=== PATIENT | female | born 1975 | race Caucasian/White ===

== ENCOUNTER → 2017-12-20 08:00 | Outpatient (CLI) | payer OTHER, SELFPAY ==
[2017-12-20 10:39] LABS: Anion Gap 8 (5-15); BUN 16 mg/dL (7-18); BUN/Creat Ratio 16.3 RATIO (10-20); Calcium,Total 8.7 mg/dL (8.5-10.1); Chloride 105 mmol/L (98-107); Cholesterol 184 mg/dL (200); Creatinine, Serum 0.98 mg/dL (0.55-1.02); EST Glomerular Filtration Rate 66 mL/min (>60); Est Glom Filt Rate - Afr Amer 80 mL/min (>60); Glucose 83 mg/dL (74-106); High Density Lipoprotein 46 mg/dL; Potassium 3.8 mmol/L (3.5-5.1); Sodium Level 140 mmol/L (136-145); Triglycerides 86 mg/dL; Very Low Density Lipoprotein 17 mg/dL (5-40)
[2017-12-20 12:13] LABS: Absolute Lymphocyte Count 1.52 X10^3/ul (0.83-4.51); Absolute Neutrophil Count 2.5 X10^3/uL (2.0-7.7); Basophil# 0.02 X10^3/uL; Basophil% 0.4 % (0-1); Eosinophil# 0.31 X10^3/uL; Eosinophils% 6.5 % (0-5); Hematocrit 39.7 % (37-47); Hemoglobin 13.6 g/dl (12.0-15.0); Lymphocyte # 1.52 X10^3/ul (4.0); Mean Corp Hgb Conc 34.3 g/gl (32-36); Mean Corpuscular Hgb 31.1 pg (27.0-32.0); Mean Corpuscular Volume 90.6 fL (81-99); Mean Platelet Vol. 11.1 fl (6.2-12.0); Monocyte# 0.41 X10^3/uL; Monocyte% 8.6 % (0-10); Neutrophil # 2.49 X10^3/uL (2.7-7.7); Neutrophil % 52.5 % (47-70); Platelet Count 282 K/mm3 (150-450); RBC Distribution Width SD 42.7 fl (35.1-43.9); Red Blood Count 4.38 M/mm3 (4.2-5.4); White Blood Count 4.8 K/mm3 (4.4-11.0)
[2017-12-20 12:19] LABS: POSITIVE COUNT NO; POSITIVE DIFFERENTIAL NO; POSITIVE MORPHOLOGY NO
[2017-12-21 08:21] LABS: Vitamin D,25 Hydroxy 28.4 ng/mL (29.95-100.01)
== END ==
PROVIDERS: Family Provider Internal Medicine; PCP Internal Medicine; Visit Provider Internal Medicine
DX: Z00.00 Encounter for general adult medical examination without abnormal findings (principal)
CPT/HCPCS: 36415; 80048; 80061; 82306; 85025

== ENCOUNTER → 2018-04-09 08:25 | Outpatient (CLI) | payer OTHER, SELFPAY ==
--- NOTE | 2018-04-09 08:27 | BI_ITS ---
MAMMOGRAPHY - BILATERAL SCREENING REASON FOR EXAM: Female, 43 years old. Routine annual screening examination. PERTINENT HISTORY: Non-contributory. TECHNIQUE: Digital bilateral breast amaury (3D mammographic acquisition) in the CC and MLO projections. 2-D mediolateral oblique (MLO) and craniocaudad (CC) views of both breasts were obtained. CAD: Full Field Digital Mammography with Computer Added Detection was performed. COMPARISON: Comparison is made with prior examination of April 03, 2017. FINDINGS: Breast Composition: The breasts are heterogeneously dense, which may obscure small masses. There are no dominant masses or suspicious calcifications. Once again, there is stable asymmetry of breast tissue where more breast tissue is seen in the upper outer quadrant of the right breast as compared to the left side. This is unchanged. Ultrasound correlation is recommended. No other significant abnormalities are identified. BI/SCREENING MAMM (CAD), BILAT IMPRESSION: Stable bilateral screening mammogram. Ultrasound correlation of the right breast is recommended for further assessment due to the breast asymmetry. ASSESSMENT CATEGORY: BIRADS Category 0: Incomplete. Need additional imaging evaluation. A letter regarding these results will be sent to the patient by the facility within 30 days. Approximately 10% of breast cancers are not detected by mammography. A normal mammogram should not delay biopsy of a clinically suspicious abnormality. [id number] Electronically Signed: Bora Tejeda MD at 11:03 EDT Tel [phone], Service support ,
== END ==
PROVIDERS: Family Provider Internal Medicine; PCP Internal Medicine; Referring Provider Obstetrics & Gynecology; Visit Provider Obstetrics & Gynecology
DX: Z12.31 Encounter for screening mammogram for malignant neoplasm of breast (principal)
CPT/HCPCS: 77063; 77067

== ENCOUNTER → 2018-04-17 08:00 | Outpatient (CLI) | payer OTHER, SELFPAY ==
--- NOTE | 2018-04-17 08:02 | US_ITS ---
STUDY: ULTRASOUND BREAST - RIGHT REASON FOR EXAM: Female, 43 years old. Left breast asymmetry, ultrasound recommended. TECHNIQUE: Axial and longitudinal images of the RIGHT breast were performed with a high resolution ultrasound transducer. COMPARISON: No prior right breast ultrasound imaging available. Correlation mammograms 04/09/2018 and 04/03/2017. FINDINGS: RIGHT Breast: There is a lesion in the upper Outer quadrant. The lesion measures 0.8 x 0.9 x 0.4 cm. And appears slightly lobulated plus shows no internal color Doppler signal. Clock notation: 11 o'clock position. Distance from nipple: 2 cm. Posterior Enhancement: Mild Posterior Shadowing: None Margins: Smooth and sharply demarcated. Echogenicity: Anechoic Compression effect on Shape: No change US/Breast Limited Unilateral IMPRESSION: Simple cyst right breast 11:00 position 2 cm from the nipple. Probably benign right mammographic and ultrasound findings. ASSESSMENT CATEGORY: BIRADS Category 3: Probably Benign - Short-Interval Follow-up Suggested. A letter regarding these results will be sent to the patient by the facility within 30 days. Recommendation: Right mammogram and possible right breast targeted ultrasound imaging in 6 months for short-term interval follow-up of probably benign findings. Electronically Signed: Trae Madrigal, at 16:54 EDT Tel , Service support ,
== END ==
PROVIDERS: Family Provider Internal Medicine; PCP Internal Medicine; Visit Provider Obstetrics & Gynecology
DX: R92.8 Other abnormal and inconclusive findings on diagnostic imaging of breast (principal)
CPT/HCPCS: 76642

== ENCOUNTER → 2018-04-30 08:17 | Outpatient (CLI) | payer OTHER, SELFPAY ==
--- NOTE | 2018-04-30 08:19 | US_ITS ---
STUDY: THYROID ULTRASOUND REASON FOR EXAM: Female, 43 years old. Thyromegaly felt by doctor TECHNIQUE: Ultrasound evaluation of the thyroid was performed with real-time and static miramontes-scale imaging. COMPARISON: None. FINDINGS: RIGHT LOBE: The right lobe of the thyroid gland measures 4.5x1.9x1.3 cm. There is a homogeneous echotexture. Single superior nodule visualized measuring 5 x 4 x 3 mm. The lesion is solid with regular margins and demetria nodular doppler flow. LEFT LOBE: The left lobe of the thyroid gland measures 4.4 x 1.7 x 1 cm. There is a homogeneous echotexture. There are no demonstrated solid, cystic or complex lesions. ISTHMUS: The isthmus measures 2 mm . The regional lymph nodes are normal. US/Thyroid IMPRESSION: Single 5 mm avascular nodule in the right thyroid lobe. The [place] [employer] (AACE) in collaboration with the [employer] (SARAH) and the Thyroid Association (ETA) published guidelines for the diagnosis and management of thyroid nodules. Biopsy of any solid and hypoechoic nodule larger than 1 cm in diameter. Thyroid nodules of any size undergo biopsy if the patient has been exposed to irradiation, has a family history of medullary carcinoma or multiple endocrine neoplasia, or has previously undergone partial thyroidectomy for thyroid cancer or if an elevated calcitonin level is present. The AACE/SARAH/ETA guidelines recommend biopsy of nodules of any size with marked hypoechogenicity, irregular or microlobulated margins, a taller than wide configuration (anteroposterior dimension greater than transverse dimension), microcalcifications, or chaotic arrangement of intranodular vascular images or chaotic intranodular vascular spots. These guidelines recommend biopsy independent of size if ultrasonography suggests the presence of metastatic lymph nodes or if extracapsular growth is noted in the nodule. They recommend biopsy of the solid component of all complex cystic nodules because of the risk of cystic papillary carcinoma. They further suggest that nodules that are hot on scintigraphy do not require biopsy. -Current Guidelines for the Management of Thyroid Nodules. Trae Prescott MD, NOLVIA, N. Endocr Pract. 2012; 18(4): 596-599. Electronically Signed: Anant Talbert MD at 17:02 EDT , Service support ,
[2018-04-30 10:30] LABS: T4 Free Direct 0.85 ng/dL (0.76-1.46)
== END ==
PROVIDERS: Family Provider Internal Medicine; PCP Internal Medicine; Referring Provider Obstetrics & Gynecology; Visit Provider Obstetrics & Gynecology
DX: E01.0 Iodine-deficiency related diffuse (endemic) goiter (principal)
CPT/HCPCS: 36415; 76536; 84439; 84443

== ENCOUNTER → 2018-09-16 08:54 | Outpatient (CLI) | payer OTHER, SELFPAY ==
[2018-05-20 08:39] VITALS: BMI 29.9
--- NOTE | 2018-09-16 08:55 | US_ITS ---
STUDY: ULTRASOUND BREAST - RIGHT REASON FOR EXAM: Female, 43 years old. Abnormal screening mammogram. TECHNIQUE: Axial and longitudinal images of the RIGHT breast were performed with a high resolution ultrasound transducer. COMPARISON: Comparison is made with prior mammogram done earlier today. Comparison is also made with prior ultrasound of the breast dated April 17, 2018. FINDINGS: RIGHT Breast: There is an 8 mm x 9 mm x 5 mm cyst at the 11:00 position of the breast sinus and nipple. US/Breast Limited Unilateral IMPRESSION: Stable examination. ASSESSMENT CATEGORY: BIRADS Category 2: Benign. A letter regarding these results will be sent to the patient by the facility within 30 days. Electronically Signed: Bora Tejeda, at 10:53 EDT , Service support ,
--- NOTE | 2018-09-16 09:01 | BI_ITS ---
MAMMOGRAPHY - UNILATERAL DIAGNOSTIC: RIGHT BREAST REASON FOR EXAM: Female, 43 years old. Six-month follow-up for a right breast cyst. PERTINENT HISTORY: Non-contributory. TECHNIQUE: Digital unilateral breast amaury (3D mammographic acquisition) in the CC and MLO projections. 2-D mediolateral oblique (MLO) and craniocaudad (CC) views of both breasts were obtained. CAD: Full Field Digital Mammography with Computer Added Detection was performed. COMPARISON: Comparison is made with prior study dated April 09, 2018. FINDINGS: Breast Composition: The breasts are heterogeneously dense, which may obscure small masses. There are no dominant masses or suspicious calcifications. No other significant abnormalities are identified. There has been no significant change since the prior study. BI/DIAG MAMM W/CAD, UNILAT IMPRESSION: Stable unilateral diagnostic mammogram. One year follow-up mammogram recommended. (A) ASSESSMENT CATEGORY: BIRADS Category 1: Negative. A letter regarding these results will be sent to the patient by the facility within 30 days. Approximately 10% of breast cancers are not detected by mammography. A normal mammogram should not delay biopsy of a clinically suspicious abnormality. Electronically Signed: Bora Tejeda, at 12:18 EDT , Service support ,
== END ==
PROVIDERS: Family Provider Internal Medicine; PCP Internal Medicine; Referring Provider Obstetrics & Gynecology; Visit Provider Obstetrics & Gynecology
DX: R92.8 Other abnormal and inconclusive findings on diagnostic imaging of breast (principal); Z87.898 Personal history of other specified conditions
CPT/HCPCS: 76642; 77061; 77065; G0279

== ENCOUNTER → 2018-10-08 08:09 | Outpatient (CLI) | payer OTHER, SELFPAY ==
[2018-09-17 14:58] VITALS: BMI 30.3
[2018-10-08 11:05] LABS: Anion Gap 6 (5-15); BUN 20 mg/dL (7-18); BUN/Creat Ratio 20.1 RATIO (10-20); Calcium,Total 8.9 mg/dL (8.5-10.1); Chloride 103 mmol/L (98-107); EST Glomerular Filtration Rate 65 mL/min (>60); Est Glom Filt Rate - Afr Amer 78 mL/min (>60); Glucose 124 mg/dL (74-106); Potassium 3.4 mmol/L (3.5-5.1); Sodium Level 135 mmol/L (136-145)
== END ==
PROVIDERS: Family Provider Internal Medicine; PCP Internal Medicine; Visit Provider Internal Medicine
DX: I10 Essential (primary) hypertension (principal)
CPT/HCPCS: 36415; 80048

== ENCOUNTER → 2018-11-07 08:08 | Outpatient (CLI) | payer OTHER, SELFPAY ==
[2018-10-15 10:18] VITALS: BMI 30.3
[2018-11-07 13:17] LABS: Anion Gap 8 (5-15); BUN 21 mg/dL (7-18); BUN/Creat Ratio 23.1 RATIO (10-20); Calcium,Total 9.1 mg/dL (8.5-10.1); Chloride 102 mmol/L (98-107); Creatinine, Serum 0.91 mg/dL (0.55-1.02); EST Glomerular Filtration Rate 72 mL/min (>60); Est Glom Filt Rate - Afr Amer 87 mL/min (>60); Glucose 78 mg/dL (74-106); Potassium 3.8 mmol/L (3.5-5.1); Sodium Level 138 mmol/L (136-145)
== END ==
PROVIDERS: Family Provider Internal Medicine; PCP Internal Medicine; Visit Provider Internal Medicine
DX: I10 Essential (primary) hypertension (principal)
CPT/HCPCS: 36415; 80048

== ENCOUNTER → 2019-02-04 08:10 | Outpatient (CLI) | payer OTHER, SELFPAY ==
[2018-11-13 14:12] VITALS: BMI 30.3
[2019-02-04 12:57] LABS: Anion Gap 8 (5-15); BUN 24 mg/dL (7-18); BUN/Creat Ratio 26.5 RATIO (10-20); Calcium,Total 9.4 mg/dL (8.5-10.1); Chloride 104 mmol/L (98-107); Creatinine, Serum 0.91 mg/dL (0.55-1.02); EST Glomerular Filtration Rate 72 mL/min (>60); Est Glom Filt Rate - Afr Amer 87 mL/min (>60); Glucose 88 mg/dL (74-106); Potassium 4.1 mmol/L (3.5-5.1); Sodium Level 139 mmol/L (136-145)
== END ==
PROVIDERS: Family Provider Internal Medicine; PCP Internal Medicine; Visit Provider Internal Medicine
DX: I10 Essential (primary) hypertension (principal)
CPT/HCPCS: 36415; 80048

== ENCOUNTER → 2019-04-29 07:55 | Outpatient (CLI) | payer OTHER, SELFPAY ==
[2018-11-13 14:12] VITALS: BMI 30.3
[2019-02-14 09:03] VITALS: BMI 30.3
--- NOTE | 2019-04-29 07:57 | BI_ITS ---
MAMMOGRAPHY - BILATERAL SCREENING REASON FOR EXAM: Female, 44 years old. Routine annual screening examination. PERTINENT HISTORY: Non-contributory. TECHNIQUE: Digital bilateral breast ajit (3D mammographic acquisition) in the CC and MLO projections. 2-D mediolateral oblique (MLO) and craniocaudad (CC) views of both breasts were obtained. CAD: Full Field Digital Mammography with Computer Added Detection was performed. COMPARISON: Comparison is made with prior examination April 09, 2018 and April 03, 2017. FINDINGS: Breast Composition: The breasts are heterogeneously dense, which may obscure small masses. There are no dominant masses or suspicious calcifications. Stable asymmetry of breast tissue within the breast tissue is seen in the upper-outer quadrant of the right breast as compared to the left side. No other significant abnormalities are identified. There has been no significant change since the prior study. BI/SCREEN MAMM (CAD) W/AJIT BILAT IMPRESSION: Stable bilateral screening mammogram. Yearly follow-up mammogram recommended. (A) ASSESSMENT CATEGORY: BIRADS Category 2: Benign. A letter regarding these results will be sent to the patient by the facility within 30 days. Approximately 10% of breast cancers are not detected by mammography. A normal mammogram should not delay biopsy of a clinically suspicious abnormality. [id number] Electronically Signed: Bora Tejeda, at 11:00 EDT , Service support ,
== END ==
PROVIDERS: Family Provider Internal Medicine; PCP Internal Medicine; Referring Provider Obstetrics & Gynecology; Visit Provider Obstetrics & Gynecology
DX: Z12.31 Encounter for screening mammogram for malignant neoplasm of breast (principal)
CPT/HCPCS: 77063; 77067

== ENCOUNTER → 2019-05-08 14:52 | Outpatient (CLI) | payer OTHER, SELFPAY ==
[2019-05-08 08:09] VITALS: BMI 30.3
[2019-05-13 15:11] LABS: HPV APTIMA, High Risk Negative (Negative)
== END ==
PROVIDERS: Family Provider Internal Medicine; PCP Internal Medicine; Visit Provider Obstetrics & Gynecology
DX: Z12.4 Encounter for screening for malignant neoplasm of cervix (principal)
CPT/HCPCS: 87624; 88175; G0145

== ENCOUNTER → 2019-05-27 08:31 | Outpatient (CLI) | payer OTHER, SELFPAY ==
[2019-05-08 08:09] VITALS: BMI 30.3
--- NOTE | 2019-05-27 08:39 | US_ITS ---
STUDY: THYROID ULTRASOUND REASON FOR EXAM: Female, 44 years old. Nodule TECHNIQUE: Ultrasound evaluation of the thyroid was performed with real-time and static miramontes-scale imaging. COMPARISON: 04/30/2018. FINDINGS: Right Lobe: 4.3 x 1.5 x 2.1 cm. Heterogeneous. Normal Doppler flow. Isthmus: 4 mm. Left lobe: 4.1 x 1.3 x 1.4 cm. Heterogeneous. Normal Doppler flow. Nodules: No thyroid nodule measuring greater than 5 mm is identified. There is a small 4 mm right mid pole hypoechoic nodule unchanged from prior. US/Thyroid IMPRESSION: Stable appearing hypoechoic 4 mm nodule which does not meet the criteria for tissue sampling of this time. Mildly heterogeneous gland parenchyma bilaterally is nonspecific. Electronically Signed: Mahesh Lira, at 17:08 EST Tel , Service support ,
== END ==
PROVIDERS: Family Provider Internal Medicine; PCP Internal Medicine; Referring Provider Internal Medicine; Visit Provider Internal Medicine
DX: E04.1 Nontoxic single thyroid nodule (principal)
CPT/HCPCS: 76536

== ENCOUNTER → 2019-08-05 08:06 | Outpatient (CLI) | payer OTHER, SELFPAY ==
[2019-06-25 13:36] VITALS: BMI 30.2
[2019-08-05 12:10] LABS: Absolute Lymphocyte Count 1.74 X10^3/uL (0.83-4.51); Absolute Neutrophil Count 4.7 X10^3/uL (2.0-7.7); Basophil# 0.03 X10^3/uL; Basophil% 0.4 % (0-1); Eosinophil# 0.29 X10^3/uL; Hematocrit 40.4 % (37-47); Hemoglobin 13.4 g/dL (12.0-15.0); Lymphocyte # 1.74 X10^3/ul (4.0); Lymphocyte % 23.7 % (19-41); Mean Corp Hgb Conc 33.2 g/dL (32-36); Mean Corpuscular Hgb 30.4 pg (27.0-32.0); Mean Corpuscular Volume 91.6 fL (81-99); Mean Platelet Vol. 11.1 fl (6.2-12.0); Monocyte# 0.55 X10^3/uL; Monocyte% 7.5 % (0-10); NRBC Flagged by Analyzer 0 % (0-5); Neutrophil # 4.71 X10^3/uL (2.7-7.7); Neutrophil % 64.1 % (47-70); Platelet Count 302 K/mm3 (150-450); RBC Distribution Width CV 12.7 % (11.6-14.6); RBC Distribution Width SD 42.1 fl (35.1-43.9); Red Blood Count 4.41 M/mm3 (4.2-5.4); White Blood Count 7.3 K/mm3 (4.4-11.0)
[2019-08-05 12:25] LABS: AST(SGOT) 9 U/L (15-37); Alanine Aminotransfer ALT/SGPT 27 U/L (13-56); Albumin, Serum 3.9 g/dL (3.2-5.0); Alkaline Phosphatase 52 U/L (45-117); Anion Gap 7 (5-15); BUN 24 mg/dL (7-18); BUN/Creat Ratio 26.5 RATIO (10-20); Calcium,Total 9.6 mg/dL (8.5-10.1); Chloride 104 mmol/L (98-107); Cholesterol 191 mg/dL (200); Creatinine, Serum 0.91 mg/dL (0.55-1.02); EST Glomerular Filtration Rate 72 mL/min (>60); Est Glom Filt Rate - Afr Amer 87 mL/min (>60); Globulin 4.1 g/dL (2.2-4.2); Glucose 91 mg/dL (74-106); High Density Lipoprotein 46 mg/dL; Potassium 3.8 mmol/L (3.5-5.1); Sodium Level 137 mmol/L (136-145); Triglycerides 81 mg/dL; Very Low Density Lipoprotein 16 mg/dL (5-40)
== END ==
LOC: BIMLAB 08:06
PROVIDERS: PCP Internal Medicine; Referring Provider Internal Medicine; Visit Provider Internal Medicine
DX: I10 Essential (primary) hypertension (principal)
CPT/HCPCS: 36415; 80053; 80061; 85025

== ENCOUNTER → 2020-02-13 08:22 | Outpatient (CLI) | payer OTHER, SELFPAY ==
[2020-02-13 08:05] VITALS: BMI 30.2
[2020-02-13 12:45] LABS: Anion Gap 7 (5-15); BUN 16 mg/dL (7-18); Calcium,Total 9.6 mg/dL (8.5-10.1); Chloride 101 mmol/L (98-107); EST Glomerular Filtration Rate 64 mL/min (>60); Est Glom Filt Rate - Afr Amer 78 mL/min (>60); Glucose 98 mg/dL (74-106); Potassium 3.7 mmol/L (3.5-5.1); Sodium Level 138 mmol/L (136-145)
== END ==
PROVIDERS: PCP Internal Medicine; Referring Provider Internal Medicine; Visit Provider Internal Medicine
DX: I10 Essential (primary) hypertension (principal)
CPT/HCPCS: 36415; 80048

== ENCOUNTER → 2020-04-30 07:35 | Outpatient (CLI) | payer OTHER, SELFPAY ==
[2020-02-13 08:05] VITALS: BMI 30.2
--- NOTE | 2020-04-30 07:35 | BI_ITS ---
MAMMOGRAPHY - BILATERAL SCREENING REASON FOR EXAM: Female, 45 years old. Routine annual screening examination. PERTINENT HISTORY: Non-contributory. TECHNIQUE: Digital bilateral breast ajit (3D mammographic acquisition) in the CC and MLO projections. 2-D mediolateral oblique (MLO) and craniocaudad (CC) views of both breasts were obtained. CAD: Full Field Digital Mammography with Computer Added Detection was performed. COMPARISON: Comparison is made with prior study dated 04/29/2019 and 04/09/2018. FINDINGS: Breast Composition: The breasts are heterogeneously dense, which may obscure small masses. There are no dominant masses or suspicious calcifications. Stable asymmetry of breast tissue were more breast tissue is seen in the upper-outer quadrant of the right breast as compared to the left side. No other significant abnormalities are identified. There has been no significant change since the prior study. BI/SCREEN MAMM (CAD) W/AJIT BILAT IMPRESSION: Stable bilateral screening mammogram. Yearly follow-up mammogram recommended. (A) ASSESSMENT CATEGORY: BIRADS Category 2: Benign. A letter regarding these results will be sent to the patient by the facility within 30 days. Approximately 10% of breast cancers are not detected by mammography. A normal mammogram should not delay biopsy of a clinically suspicious abnormality. [id number] Electronically Signed: Bora Tejeda, at 9:23 EDT , Service support ,
== END ==
PROVIDERS: PCP Internal Medicine; Referring Provider Obstetrics & Gynecology; Visit Provider Obstetrics & Gynecology
DX: Z12.31 Encounter for screening mammogram for malignant neoplasm of breast (principal)
CPT/HCPCS: 77063; 77067

== ENCOUNTER → 2020-08-16 08:22 | Outpatient (CLI) | payer OTHER, SELFPAY ==
[2020-08-16 08:07] VITALS: BMI 31.9
[2020-08-16 12:26] LABS: Absolute Lymphocyte Count 1.64 X10^3/uL (0.83-4.51); Absolute Neutrophil Count 4.1 X10^3/uL (2.0-7.7); Basophil# 0.05 X10^3/uL; Basophil% 0.7 % (0-1); Eosinophil# 0.46 X10^3/uL; Eosinophils% 6.8 % (0-5); Hematocrit 38.8 % (37-47); Hemoglobin 12.8 g/dL (12.0-15.0); Lymphocyte # 1.64 X10^3/ul (4.0); Lymphocyte % 24.3 % (19-41); Mean Corpuscular Hgb 30.4 pg (27.0-32.0); Mean Corpuscular Volume 92.2 fL (81-99); Mean Platelet Vol. 10.8 fl (6.2-12.0); Monocyte# 0.48 X10^3/uL; Monocyte% 7.1 % (0-10); NRBC Flagged by Analyzer 0 % (0-5); Neutrophil % 60.8 % (47-70); Platelet Count 373 K/mm3 (150-450); RBC Distribution Width SD 43.8 fl (35.1-43.9); Red Blood Count 4.21 M/mm3 (4.2-5.4); White Blood Count 6.8 K/mm3 (4.4-11.0)
[2020-08-16 13:28] LABS: ALB/GLOB Ratio 0.9 RATIO (0.9-2.4); AST(SGOT) 21 U/L (15-37); Alanine Aminotransfer ALT/SGPT 30 U/L (13-56); Albumin, Serum 3.7 g/dL (3.2-5.0); Alkaline Phosphatase 57 U/L (45-117); Anion Gap 8 (5-15); BUN 20 mg/dL (7-18); BUN/Creat Ratio 20.4 RATIO (10-20); Calcium,Total 9.4 mg/dL (8.5-10.1); Chloride 103 mmol/L (98-107); Cholesterol 208 mg/dL (200); Creatinine, Serum 0.98 mg/dL (0.55-1.02); EST Glomerular Filtration Rate 65 mL/min (>60); Est Glom Filt Rate - Afr Amer 79 mL/min (>60); Glucose 85 mg/dL (74-106); High Density Lipoprotein 48 mg/dL; Potassium 3.8 mmol/L (3.5-5.1); Protein, Total 7.7 g/dL (6.4-8.2); Sodium Level 137 mmol/L (136-145); Triglycerides 109 mg/dL; Very Low Density Lipoprotein 22 mg/dL (5-40)
== END ==
PROVIDERS: PCP Internal Medicine; Visit Provider Internal Medicine
DX: I10 Essential (primary) hypertension (principal)
CPT/HCPCS: 36415; 80053; 80061; 85025

== ENCOUNTER → 2020-11-29 08:36 | Outpatient (CLI) | payer OTHER, SELFPAY ==
[2020-11-29 08:22] VITALS: BMI 31.9
[2020-11-29 13:05] LABS: Anion Gap 5 (5-15); BUN 20 mg/dL (7-18); BUN/Creat Ratio 23.8 RATIO (10-20); Calcium,Total 9.4 mg/dL (8.5-10.1); Chloride 103 mmol/L (98-107); Creatinine, Serum 0.84 mg/dL (0.55-1.02); EST Glomerular Filtration Rate 78 mL/min (>60); Est Glom Filt Rate - Afr Amer 94 mL/min (>60); Glucose 93 mg/dL (74-106); Potassium 3.9 mmol/L (3.5-5.1); Sodium Level 135 mmol/L (136-145)
== END ==
PROVIDERS: PCP Internal Medicine; Referring Provider Internal Medicine; Visit Provider Internal Medicine
DX: I10 Essential (primary) hypertension (principal)
CPT/HCPCS: 36415; 80048

== ENCOUNTER → 2021-05-30 07:42 | Outpatient (CLI) | payer OTHER, SELFPAY ==
--- NOTE | 2021-05-30 07:43 | BI_ITS ---
MAMMOGRAPHY - BILATERAL SCREENING 3-D TOMOSYNTHESIS REASON FOR EXAM: Female, 46 years old. Routine screening PERTINENT HISTORY: No significant family history. TECHNIQUE: 2-D mammograms and 3-D Tomosynthesis of the breast (s) were performed. CAD was performed. COMPARISON: None. FINDINGS: The breast composition is heterogeneously dense that can obscure small breast masses. Scattered benign calcifications are seen. No dense spiculated masses or suspicious microcalcifications are identified. No architectural distortion is identified. There is no skin thickening or retraction. There has been no significant change since the prior study. BI/SCRN MAMM (CAD)W/AJIT BILAT IMPRESSION: No mammographic signs of malignancy. Routine yearly mammograms recommended. ASSESSMENT CATEGORY: BIRADS Category 2: Benign. A letter regarding these results will be sent to the patient by the facility within 30 days. FOLLOW UP RECOMMENDATION: Yearly follow up mammogram recommended. (A) Approximately 10% of breast cancers are not detected by mammography. A normal mammogram should not delay biopsy of a clinically suspicious abnormality. Electronically Signed: Tyson Bullock MD at 12:29 EST , Service support ,
== END ==
PROVIDERS: PCP Internal Medicine; Referring Provider Obstetrics & Gynecology; Visit Provider Obstetrics & Gynecology
DX: Z12.31 Encounter for screening mammogram for malignant neoplasm of breast (principal)
CPT/HCPCS: 77063; 77067

== ENCOUNTER 2021-07-05 09:46 | Day surgery (SDC) | payer OTHER, SELFPAY ==
[2021-07-05 10:07] VITALS: BP 122/78; PULSE 84; RESP 16; TEMP 36.4; O2SAT 100; BMI 30.7
[2021-07-05 10:10] LABS: Internal QC Validated? YES +Cl - CLEAR BKGD; Pregnancy, Urine Negative Negative
[2021-07-05] MEDS: Lactated Ringers 1,000 ML 15 ML IV (10:14)
--- NOTE | 2021-07-05 10:35 | H&P.OPEN ---
HPI - General HPI Narrative YOLY BELL, is a 46 F who presents for screening for colon cancer. Patient never had a previous colonoscopy. Patient denies any family history of colon cancer?However her parents do not get colonoscopies. Patient denies any chronic abdominal pain/nausea/vomiting/reflux. Patient has bowel movements daily denies any blood PFSH Medical History (Updated 07/04/21 @ 12:[address] Ynse Murry MD) Asthma BP (high blood pressure) Colon cancer screening Hypertension Non-smoker Right hip pain Seasonal allergies Thyroid nodule Umbilical hernia Home Medications albuterol sulfate 90 mcg/actuation aerosol inhaler 2 puff INHALATION Q6H PRN 01/11/18 [History Last Taken Unknown] allergy injections IM 01/11/18 [History Last Taken Unknown] levonorgestrel 20 mcg/24 hours (7 yrs) 52 mg intrauterine device 1 insert INTRAUTERINE ONCE 01/11/18 [History Last Taken Unknown] multivitamin 1 cap PO QAM 01/11/18 [History Last Taken Unknown] cholecalciferol (vitamin D3) 50 mcg (2,000 unit) capsule 2,000 unit PO DAILY 05/09/18 [History Last Taken Unknown] ascorbate calcium (vitamin C) 500 mg tablet 500 mg PO BID 05/20/18 [History Last Taken Unknown] fluticasone propionate 50 mcg/actuation nasal spray,suspension 2 spray INTRANASAL DAILY PRN #9.9 ml 01/31/21 [Rx Last Taken Unknown] hydrochlorothiazide 25 mg tablet 25 mg PO DAILY #90 tab 01/31/21 [Rx Last Taken Unknown] lisinopril 10 mg tablet 10 mg PO DAILY #90 tab 05/06/21 [Rx Last Taken 07/05/21] Allergy/AdvReac Type Severity Reaction Status Date / Time No Known Allergies Allergy Verified 07/05/21 10:05 Family History Father Asthma Hyperlipemia Mother Hypertension Grandfather Myocardial infarction, Onset Age: 55 Son Asthma Surgical History H/O dilation and curettage (~2010) Social History adopted: No household members: family housing: house number of children: 2 current occupational status: employed current occupation: [employer] right now pets and animals: No history of recent travel: No Smoking Status: Never smoker second hand exposure: No alcohol intake: current alcohol intake frequency: a few times a week details: social substance use type: does not use caffeine: Yes what type of physical activity do you participate in: none and walking seatbelt use: always do you feel safe at home: Yes additional social history: - Satya Past Medical/Surgical History Planned Operation Planned Operative Procedure/s: COLONOSCOPY Previous Hospitalizations/Surgeries HX Hospitalizations: No Any Problems With Anesthesia: No You/Your Family Experience Fever (Hyperthermia) With Anes: No Cholinesterase deficiency: No Cardiovascular Hx of Irregular Heartbeat and/or Afib: No Hx Heart Attack: No Hx Congestive Heart Failure: No Hx Hypertension: No Hx Internal Defibrillator: No Hx Pacemaker: No Respiratory Hx Chronic Obstructive Pulmonary Disease (COPD): No Hx Asthma: No Hx Emphysema: No Hx Sleep Apnea: No Hx Respiratory Tract Infection/Cold (presently): No Do You Snore Loudly (louder than talking or can be heard): No Do You Often Feel Tired/ Fatigued/ Sleepy Dring Daytime?: No Has Anyone Observed You Stop Breathing During Sleep?: No Result (for STOP score): Negative Smoking Status: Never smoker Gastrointestinal Hx Gastroesophageal Reflux: No Hx Ulcer: No Neurological Hx Seizures: No Hx Multiple Sclerosis: No Hx Parkinson's Disease: No Hx Head/Neck Injury: No Hx Headaches: No Hx Back Injury/Pain: No Does patient have nerve stimulator: No Reproduction : No Psycho/Social Hx Anxiety: No Hx Depression: No Miscellaneous Recent Exposure to Contagious Disease: No Allergies No Known Allergies Allergy (Verified 07/05/21 10:05) Discharge Is Pt Admitted From a Custodial, or a Prison: No After D/C, Where Do you Plan to Go: Return Home Vital Signs Vital Signs Vital Signs: 07/05/21 10:07 Temperature 97.6 F L Temperature Source Temporal Pulse Rate 84 Respiratory Rate 16 Respiratory Pattern Normal Blood Pressure 122/78 H Blood Pressure Mean 92 Blood Pressure Source Monitor Blood Pressure Position Sitting Blood Pressure Location Left Arm Pulse Ox 100 Oxygen Delivery Method Room Air Weight Weight: 190 lb 11.198 oz Body Mass Index (BMI) 30.7 Physical Exam Const alert, oriented x3 and no apparent distress HEENT normocephalic and head/scalp atraumatic Resp normal respiratory effort Cardio regular rate GI soft to palpation and non-tender; Negative for non-distended Palpation: Negative for guarding Extremity no clubbing, cyanosis or edema Neuro CN's II-XII intact bilaterally Psych mental status grossly normal Assessment & Plan Assessment/Plan (1) Colon cancer screening: Procedure Criteria Type of Procedure Procedure Type: Elective Elective Risks - COVID COVID Risk Discussion: The surgeon/proceduralist and patient have discussed in detail the risk of exposure to and/or potential harm posed by the COVID-19 virus with having a surgery/procedure at this time versus the risk of delaying the surgery/procedure. It is not possible to know either the risk of delaying the surgery or procedure or chance of getting an infection with perfect accuracy, but a joint decision was made between the patient and the surgeon/proceduralist to proceed at this time with the scheduled surgery/procedure as indicated on the consent form. Surgery Risks - Colonoscopy Risks Include but are not Limited To: Risks include but are not limited to: Bleeding, perforation requiring further surgery, inability to complete colonoscopy requiring barium enema.
--- NOTE | 2021-07-05 11:00 | COLBX_PTH ---
PATIENT: YOLY BELL LOC: [facility] U#:[id number] AGE/SX: 46/F ROOM: RE07/05/[address]: Dr. Genoveva Cadena MD : 1975 BED: DIS: 07/05/2021 SPEC #: [id number] RECD: 07/05/21 15:03 STATUS: YANELIS JAIRO #: [id number] REENA: 07/05/21 11:[address]: Genoveva Cadena DEPT: SURGICAL PATHOLOGY RECD BY: Beatriz Leyva ENTERED: 07/06/21 12:14 SP TYPE: COLON BX OT DR: Dr. Ynes Murry MD Tissues: Rectum, NOS Procedures: Surgery Specimen Level IV HEADER OPERATION: Colonoscopy ? open access (MAC) PRE-OP DIAGNOSIS: Colon cancer screening TISSUE SUBMITTED: Rectal biopsy MICROSCOPIC DIAGNOSIS Rectal biopsy: Focal acute colitis. Negative for malignancy. See comment. JJ:femi 07/07/2021 COMMENT Focal cryptitis and crypt abscesses are noted. Correlation with clinical, endoscopic findings and appropriate follow up are necessary. MICROSCOPIC DESCRIPTION Slides are reviewed. GROSS DESCRIPTION Received in fixative is one container labeled with the patient's name and designated rectal biopsy. The specimen consists of multiple irregular fragments of light haines soft tissue that in aggregate measure 0.5 x 0.5 x 0.1 cm. The specimen is totally submitted in one cassette. / SJ:femi 07/06/21 TC:2 CPT: 75824
[2021-07-05 11:20] VITALS: BP 110/65; BP 122/78; PULSE 77; RESP 16; TEMP 36.3; O2SAT 97
--- NOTE | 2021-07-05 11:24 | OP.CCLET_ITS ---
07/05/2021 Ynes Murry MD [address] [place] [address] [place] [address] Re : Colonoscopy procedure for Rupal Armijo Dear Dr. Murry This procedure was performed on Monday, July 05, 2021. My impressions and recommendations are as follows: Impressions : - Hemorrhoids found on perianal exam. - Non-bleeding internal hemorrhoids. - White lesions of the mucosa in the rectum. Biopsied. - The examination was otherwise normal. Recommendations : - Discharge patient to home. - Resume previous diet. - Continue present medications. - Await pathology results. - Repeat colonoscopy in 5-10 years for surveillance based on pathology results. My findings are described in the full procedure note, which is enclosed. If I can be of further assistance, please feel free to contact me at Doctor phone number(s): , Work: . Sincerely, MD Genoveva Wise MD 07/05/2021 11:23:46 AM This report has been signed electronically.
--- NOTE | 2021-07-05 11:24 | OP.COLON_ITS ---
Patient Name: Rupal Armijo Procedure Date: 07/05/2021 10:43 AM Date of : 1975 Age: 46 Procedure: Colonoscopy Indications: Screening for colorectal malignant neoplasm Providers: Genoveva Cadena MD Medicines: Monitored Anesthesia Care Patient Profile: This is a 46 year old female. Last Colonoscopy: none. The patient's first colonoscopy is today. Complications: No immediate complications. Procedure: Pre-Anesthesia Assessment: - Prior to the procedure, a History and Physical was performed, and patient medications and allergies were reviewed. The patient's tolerance of previous anesthesia was also reviewed. The risks and benefits of the procedure and the sedation options and risks were discussed with the patient. All questions were answered, and informed consent was obtained. Prior Anticoagulants: The patient has taken no previous anticoagulant or antiplatelet agents. ASA Grade Assessment: Per anesthesia. After reviewing the risks and benefits, the patient was deemed in satisfactory condition to undergo the procedure. After I obtained informed consent, the scope was passed under direct vision. Throughout the procedure, the patient's blood pressure, pulse, and oxygen saturations were monitored continuously. The colonoscope was introduced through the anus and advanced to the cecum, identified by appendiceal orifice and ileocecal valve. The colonoscopy was performed without difficulty. The patient tolerated the procedure well. The quality of the bowel preparation was good. Scope In: 10:53:21 AM Scope Withdrawal Time 0 hours 11 minutes 47 seconds Scope Out: 11:14:02 AM Total Procedure Duration Time 0 hours 20 minutes 41 seconds Findings: Hemorrhoids were found on perianal exam. Non-bleeding internal hemorrhoids were found. The hemorrhoids were Grade I (internal hemorrhoids that do not prolapse). An area of mildly white lesions of the mucosa was found in the rectum. Biopsies were taken with a cold forceps for histology. The exam was otherwise without abnormality. Impression: - Hemorrhoids found on perianal exam. - Non-bleeding internal hemorrhoids. - White lesions of the mucosa in the rectum. Biopsied. - The examination was otherwise normal. Recommendation: - Discharge patient to home. - Resume previous diet. - Continue present medications. - Await pathology results. - Repeat colonoscopy in 5-10 years for surveillance based on pathology results. Procedure Code(s): --- Professional --- 18608, PT, Colonoscopy, flexible; with biopsy, single or multiple Diagnosis Code(s): --- Professional --- Z12.11, Encounter for screening for malignant neoplasm of colon K64.0, First degree hemorrhoids CPT copyright 2017 [employer]. All rights reserved. The codes documented in this report are preliminary and upon leather skinner review may be revised to meet current compliance requirements. MD Genoveva Wise MD 07/05/2021 11:23:46 AM This report has been signed electronically. Number of Addenda: 0 Note Initiated On: 07/05/2021 10:43 AM
[2021-07-05 11:25] VITALS: BP 104/61; BP 122/78; PULSE 69; RESP 16; O2SAT 97
[2021-07-05 11:30] VITALS: BP 103/63; BP 122/78; PULSE 61; RESP 16; O2SAT 98
[2021-07-05 11:35] VITALS: BP 111/66; BP 122/78; PULSE 64; RESP 16; TEMP 36.7; O2SAT 100
[2021-07-05 11:55] VITALS: BP 122/78
== END 2021-07-05 12:13 ==
LOC: EN 09:49 → AC 09:50
PROVIDERS: Anesthesiology; PCP Internal Medicine; Referring Provider Internal Medicine; Visit Provider Surgery
PROC: 0DJD8ZZ Inspection of Lower Intestinal Tract, Via Natural or Artificial Opening Endoscopic (ICD-10-PCS; CPT 45378; principal; 2021-07-05 10:55)
DX: Z12.11 Encounter for screening for malignant neoplasm of colon (principal); K52.9 Noninfective gastroenteritis and colitis, unspecified; K64.0 First degree hemorrhoids; J45.909 Unspecified asthma, uncomplicated; I10 Essential (primary) hypertension; Z79.3 Long term (current) use of hormonal contraceptives; Z79.899 Other long term (current) drug therapy
CPT/HCPCS: 45380; 81025; 88305; J7120; J2405

== ENCOUNTER → 2021-07-06 14:47 | Outpatient (CLI) | payer OTHER, SELFPAY ==
--- NOTE | 2021-07-06 14:49 | RAD_ITS ---
STUDY: X-RAY - PELVIS AND RIGHT HIP REASON FOR EXAM: Female, 46 years old. no injury, right hip pain x 6-8 weeks Right Hip Pain TECHNIQUE: XR Hip Unilateral with Pelvis when performed; 2-3 Views COMPARISON: None. FINDINGS: There is a non-specific bowel gas pattern. Normal visualized soft tissue structures. An intrauterine device is identified in the pelvis and this is likely within the uterus. Normal bilateral iliac wings, sacroiliac joints and visualized sacrum. Normal bilateral superior and inferior pubic rami. Normal pubic symphysis. Normal bilateral ischial tuberosities. Normal visualized femoral head. Normal acetabulum. Normal hip joint. RAD/HIP, UNI W/ Pelvis 2-3 Views IMPRESSION: Normal x-ray examination of the pelvis and hip. Electronically Signed: Anant Talbert MD at 15:53 EST , Service support ,
== END ==
PROVIDERS: PCP Internal Medicine; Referring Provider Internal Medicine; Visit Provider Internal Medicine
DX: M25.551 Pain in right hip (principal)
CPT/HCPCS: 73502

== ENCOUNTER 2021-09-26 08:11 | Outpatient (CLI) | payer BC, SELFPAY ==
[2021-09-26 12:09] LABS: Absolute Lymphocyte Count 1.88 X10^3/uL (0.83-4.51); Absolute Neutrophil Count 4.5 X10^3/uL (2.0-7.7); Basophil# 0.04 X10^3/uL; Basophil% 0.5 % (0-1); Eosinophil# 0.34 X10^3/uL; Eosinophils% 4.6 % (0-5); Hematocrit 37.9 % (37-47); Hemoglobin 12.4 g/dL (12.0-15.0); Lymphocyte # 1.88 X10^3/ul (0.83-4.51); Lymphocyte % 25.6 % (19-41); Mean Corp Hgb Conc 32.7 g/dL (32-36); Mean Corpuscular Hgb 28.6 pg (27.0-32.0); Mean Corpuscular Volume 87.3 fL (81-99); Mean Platelet Vol. 10.8 fl (6.2-12.0); Monocyte# 0.54 X10^3/uL; Monocyte% 7.4 % (0-10); NRBC Flagged by Analyzer 0 % (0-5); Neutrophil # 4.51 X10^3/uL (2.7-7.7); Neutrophil % 61.5 % (47-70); Platelet Count 387 K/mm3 (150-450); RBC Distribution Width CV 14.6 % (11.6-14.6); RBC Distribution Width SD 46.9 fl (35.1-43.9); Red Blood Count 4.34 M/mm3 (4.2-5.4); White Blood Count 7.3 K/mm3 (4.4-11.0)
[2021-09-26 12:17] LABS: ALB/GLOB Ratio 0.8 RATIO (0.9-2.4); AST(SGOT) 13 U/L (15-37); Alanine Aminotransfer ALT/SGPT 23 U/L (13-56); Albumin, Serum 3.4 g/dL (3.2-5.0); Alkaline Phosphatase 79 U/L (45-117); Anion Gap 3 (5-15); BUN 20 mg/dL (7-18); BUN/Creat Ratio 20.6 RATIO (10-20); Calcium,Total 9.4 mg/dL (8.5-10.1); Chloride 103 mmol/L (98-107); Cholesterol 218 mg/dL (200); Creatinine, Serum 0.97 mg/dL (0.55-1.02); EST Glomerular Filtration Rate 66 mL/min (>60); Est Glom Filt Rate - Afr Amer 79 mL/min (>60); Globulin 4.3 g/dL (2.2-4.2); Glucose 93 mg/dL (74-106); High Density Lipoprotein 46 mg/dL; Potassium 3.6 mmol/L (3.5-5.1); Protein, Total 7.7 g/dL (6.4-8.2); Sodium Level 136 mmol/L (136-145); Triglycerides 134 mg/dL; Very Low Density Lipoprotein 27 mg/dL (5-40)
== END 2021-09-26 23:59 | disposition home or self-care (01) ==
LOC: BIMLAB 08:13
PROVIDERS: PCP Internal Medicine; Referring Provider Internal Medicine; Visit Provider Internal Medicine
DX: I10 Essential (primary) hypertension (principal)
CPT/HCPCS: 36415; 80053; 80061; 85025

== ENCOUNTER → 2022-04-06 | Outpatient (CLI) | payer BC, SELFPAY ==
[2022-04-06 10:40] LABS: Anion Gap 7 (5-15); BUN 26 mg/dL (7-18); BUN/Creat Ratio 27.3 RATIO (10-20); Calcium,Total 9.8 mg/dL (8.5-10.1); Chloride 104 mmol/L (98-107); Cholesterol 226 mg/dL (200); Creatinine, Serum 0.95 mg/dL (0.55-1.02); EST Glomerular Filtration Rate 67 mL/min (>60); Est Glom Filt Rate - Afr Amer 81 mL/min (>60); Glucose 95 mg/dL (74-106); High Density Lipoprotein 45 mg/dL; Potassium 3.6 mmol/L (3.5-5.1); Sodium Level 138 mmol/L (136-145); Triglycerides 115 mg/dL; Very Low Density Lipoprotein 23 mg/dL (5-40)
== END | disposition home or self-care (01) ==
LOC: MTLAB 07:37
PROVIDERS: PCP Internal Medicine; Referring Provider Internal Medicine; Visit Provider Internal Medicine
DX: E78.5 Hyperlipidemia, unspecified (principal); I10 Essential (primary) hypertension
CPT/HCPCS: 36415; 80048; 80061

== ENCOUNTER → 2022-05-31 | Outpatient (CLI) | payer BC, SELFPAY ==
--- NOTE | 2022-05-31 07:56 | BI_ITS ---
MAMMOGRAPHY - BILATERAL SCREENING REASON FOR EXAM: Female, 47 years old. Routine annual screening examination. PERTINENT HISTORY: Non-contributory. TECHNIQUE: Digital bilateral breast ajit (3D mammographic acquisition) in the CC and MLO projections. 2-D mediolateral oblique (MLO) and craniocaudad (CC) views of both breasts were obtained. CAD: Full Field Digital Mammography with Computer Added Detection was performed. COMPARISON: 05/30/2021, 04/30/2020. FINDINGS: Breast Composition: The breasts are heterogeneously dense, which may obscure small masses. There are no dominant masses or suspicious calcifications. Stable asymmetrical right breast tissue. Stable scattered benign-appearing calcifications. No other significant abnormalities are identified. There has been no significant change since the prior study. BI/SCRN MAMM (CAD)W/AJIT BILAT IMPRESSION: Stable bilateral screening mammogram. Yearly follow-up mammogram recommended. (A) ASSESSMENT CATEGORY: BIRADS Category 2: Benign. A letter regarding these results will be sent to the patient by the facility within 30 days. Approximately 10% of breast cancers are not detected by mammography. A normal mammogram should not delay biopsy of a clinically suspicious abnormality. Electronically Signed: Jonah Miranda, at 14:08 EST ,
== END | disposition home or self-care (01) ==
LOC: OPBI 07:55
PROVIDERS: PCP Internal Medicine; Visit Provider Obstetrics & Gynecology
DX: Z12.31 Encounter for screening mammogram for malignant neoplasm of breast (principal)
CPT/HCPCS: 77063; 77067

== ENCOUNTER → 2022-06-27 | Outpatient (CLI) | payer BC, SELFPAY ==
[2022-06-27 11:04] LABS: AST(SGOT) 24 U/L (15-37); Alanine Aminotransfer ALT/SGPT 47 U/L (13-56); Albumin, Serum 3.8 g/dL (3.2-5.0); Alkaline Phosphatase 62 U/L (45-117); Anion Gap 8 (5-15); BUN 19 mg/dL (7-18); Calcium,Total 9.4 mg/dL (8.5-10.1); Chloride 101 mmol/L (98-107); Cholesterol 145 mg/dL (200); Creatinine, Serum 0.86 mg/dL (0.55-1.02); EST Glomerular Filtration Rate 75 mL/min (>60); Est Glom Filt Rate - Afr Amer 91 mL/min (>60); Globulin 3.7 g/dL (2.2-4.2); Glucose 94 mg/dL (74-106); High Density Lipoprotein 52 mg/dL; Potassium 3.9 mmol/L (3.5-5.1); Protein, Total 7.5 g/dL (6.4-8.2); Sodium Level 138 mmol/L (136-145); Triglycerides 81 mg/dL; Very Low Density Lipoprotein 16 mg/dL (5-40)
== END | disposition home or self-care (01) ==
LOC: MTLAB 07:29
PROVIDERS: PCP Internal Medicine; Referring Provider Internal Medicine; Visit Provider Internal Medicine
DX: E78.2 Mixed hyperlipidemia (principal)
CPT/HCPCS: 36415; 80053; 80061

== ENCOUNTER → 2022-10-06 | Outpatient (CLI) | payer BC, SELFPAY ==
[2022-10-06 09:59] LABS: Absolute Lymphocyte Count 1.65 X10^3/uL (0.83-4.51); Absolute Neutrophil Count 4.3 X10^3/uL (2.0-7.7); Basophil# 0.04 X10^3/uL; Basophil% 0.6 % (0-1); Eosinophil# 0.23 X10^3/uL; Eosinophils% 3.4 % (0-5); Hematocrit 40.2 % (37-47); Hemoglobin 13.4 g/dL (12.0-15.0); Lymphocyte # 1.65 X10^3/ul (0.83-4.51); Lymphocyte % 24.4 % (19-41); Mean Corp Hgb Conc 33.3 g/dL (32-36); Mean Corpuscular Hgb 31.1 pg (27.0-32.0); Mean Corpuscular Volume 93.3 fL (81-99); Mean Platelet Vol. 10.5 fl (6.2-12.0); Monocyte# 0.54 X10^3/uL; NRBC Flagged by Analyzer 0 % (0-5); Neutrophil # 4.28 X10^3/uL (2.7-7.7); Neutrophil % 63.5 % (47-70); Platelet Count 277 K/mm3 (150-450); RBC Distribution Width CV 12.6 % (11.6-14.6); RBC Distribution Width SD 43.3 fl (35.1-43.9); Red Blood Count 4.31 M/mm3 (4.2-5.4); White Blood Count 6.8 K/mm3 (4.4-11.0)
[2022-10-06 10:14] LABS: Anion Gap 7 (5-15); BUN 19 mg/dL (7-18); BUN/Creat Ratio 20.7 RATIO (10-20); Calcium,Total 9.5 mg/dL (8.5-10.1); Chloride 103 mmol/L (98-107); Creatinine, Serum 0.92 mg/dL (0.55-1.02); EST Glomerular Filtration Rate 70 mL/min (>60); Est Glom Filt Rate - Afr Amer 85 mL/min (>60); Glucose 98 mg/dL (74-106); Potassium 3.5 mmol/L (3.5-5.1); Sodium Level 138 mmol/L (136-145)
== END | disposition home or self-care (01) ==
PROVIDERS: PCP Internal Medicine; Referring Provider Internal Medicine; Visit Provider Internal Medicine
DX: I10 Essential (primary) hypertension (principal)
CPT/HCPCS: 36415; 80048; 85025

== ENCOUNTER → 2022-10-20 | Outpatient (CLI) | payer BC, SELFPAY ==
--- NOTE | 2022-10-20 16:17 | US_ITS ---
STUDY: THYROID ULTRASOUND REASON FOR EXAM: Female, 47 years old. Thyroid Nodule-F/U TECHNIQUE: Ultrasound evaluation of the thyroid was performed with real-time and static miramontes-scale imaging. COMPARISON: May 27, 2019 FINDINGS: RIGHT LOBE: The right lobe of the thyroid gland measures 4.3 x 1 0.7, 1.8 cm. There is a homogeneous echotexture. There is a solid nodule in the mid to upper pole measuring 5 x 6 x 3 mm demonstrating regular margins and. perinodular vascularity. LEFT LOBE: The left lobe of the thyroid gland measures 4.1 x 1.3 x 1.4 cm. There is a homogeneous echotexture. There are no demonstrated solid, cystic or complex lesions. ISTHMUS: The isthmus measures 3 mm . The regional lymph nodes are normal. US/Thyroid IMPRESSION: Stable appearance to right thyroid nodule without appreciable increase in size or new nodules since prior exam.. Electronically Signed: Ronal Gunderson MD at 18:01 EDT ,
== END | disposition home or self-care (01) ==
PROVIDERS: PCP Internal Medicine; Referring Provider Internal Medicine; Visit Provider Internal Medicine
DX: E04.1 Nontoxic single thyroid nodule (principal)
CPT/HCPCS: 76536

== ENCOUNTER → 2023-04-04 | Outpatient (CLI) | payer BC, SELFPAY ==
[2023-04-04 10:48] LABS: AST(SGOT) 12 U/L (15-37); Alanine Aminotransfer ALT/SGPT 29 U/L (13-56); Albumin, Serum 3.8 g/dL (3.2-5.0); Alkaline Phosphatase 66 U/L (45-117); Anion Gap 5 (5-15); BUN 15 mg/dL (7-18); BUN/Creat Ratio 16.5 RATIO (10-20); Chloride 103 mmol/L (98-107); Cholesterol 122 mg/dL (200); Creatinine, Serum 0.91 mg/dL (0.55-1.02); EST Glomerular Filtration Rate 71 mL/min (>60); Est Glom Filt Rate - Afr Amer 85 mL/min (>60); Glucose 96 mg/dL (74-106); High Density Lipoprotein 45 mg/dL; Potassium 3.5 mmol/L (3.5-5.1); Protein, Total 7.8 g/dL (6.4-8.2); Sodium Level 137 mmol/L (136-145); Triglycerides 91 mg/dL; Very Low Density Lipoprotein 18 mg/dL (5-40)
== END | disposition home or self-care (01) ==
PROVIDERS: PCP Internal Medicine; Referring Provider Internal Medicine; Visit Provider Internal Medicine
DX: E78.5 Hyperlipidemia, unspecified (principal); I10 Essential (primary) hypertension
CPT/HCPCS: 36415; 80053; 80061

== ENCOUNTER → 2023-06-01 | Outpatient (CLI) | payer BC, SELFPAY ==
--- NOTE | 2023-06-01 07:32 | BI_ITS ---
MAMMOGRAPHY - BILATERAL SCREENING REASON FOR EXAM: Female, 48 years old. Routine annual screening examination. PERTINENT HISTORY: Non-contributory. TECHNIQUE: Digital bilateral breast ajit (3D mammographic acquisition) in the CC and MLO projections. 2-D mediolateral oblique (MLO) and craniocaudad (CC) views of both breasts were obtained. CAD: Full Field Digital Mammography with Computer Added Detection was performed. COMPARISON: Comparison is made with prior study dated May 31, 2022 and May 30, 2021. FINDINGS: Breast Composition: The breasts are heterogeneously dense, which may obscure small masses. There are no dominant masses or suspicious calcifications. Stable asymmetry of breast tissue where more breast tissue is seen in the upper outer quadrant of the right breast as compared to the left side. Small bilateral axillary lymph nodes. No other significant abnormalities are identified. There has been no significant change since the prior study. BI/SCRN MAMM (CAD)W/AJIT BILAT IMPRESSION: Stable bilateral screening mammogram. Yearly follow-up mammogram recommended. (A) ASSESSMENT CATEGORY: BIRADS Category 2: Benign. A letter regarding these results will be sent to the patient by the facility within 30 days. Approximately 10% of breast cancers are not detected by mammography. A normal mammogram should not delay biopsy of a clinically suspicious abnormality. [id number] Electronically Signed: Bora Tejeda MD at 15:44 EST ,
== END | disposition home or self-care (01) ==
LOC: OPBI 07:29
PROVIDERS: PCP Internal Medicine; Referring Provider Obstetrics & Gynecology; Visit Provider Obstetrics & Gynecology
DX: Z12.31 Encounter for screening mammogram for malignant neoplasm of breast (principal)
CPT/HCPCS: 77063; 77067

== ENCOUNTER → 2023-06-07 | Outpatient (CLI) | payer BC, SELFPAY ==
[2023-06-11 18:07] LABS: HPV APTIMA, High Risk Negative (Negative)
== END | disposition home or self-care (01) ==
LOC: LABSPEC 10:28
PROVIDERS: PCP Internal Medicine; Referring Provider Obstetrics & Gynecology; Visit Provider Obstetrics & Gynecology
DX: Z12.4 Encounter for screening for malignant neoplasm of cervix (principal)
CPT/HCPCS: 87624; 88175; G0145

== ENCOUNTER → 2023-10-06 | Outpatient (CLI) | payer BC, SELFPAY ==
[2023-10-06 10:01] LABS: Absolute Lymphocyte Count 2.13 X10^3/uL (0.83-4.51); Basophil# 0.05 X10^3/uL; Basophil% 0.6 % (0-1); Eosinophil# 0.25 X10^3/uL; Eosinophils% 3.1 % (0-5); Hematocrit 38.8 % (37-47); Hemoglobin 12.9 g/dL (12.0-15.0); Lymphocyte # 2.13 X10^3/ul (0.83-4.51); Lymphocyte % 26.4 % (19-41); Mean Corp Hgb Conc 33.2 g/dL (32-36); Mean Corpuscular Hgb 30.9 pg (27.0-32.0); Mean Corpuscular Volume 92.8 fL (81-99); Mean Platelet Vol. 10.5 fl (6.2-12.0); Monocyte# 0.59 X10^3/uL; Monocyte% 7.3 % (0-10); NRBC Flagged by Analyzer 0 % (0-5); Neutrophil # 5.04 X10^3/uL (2.7-7.7); Neutrophil % 62.4 % (47-70); Platelet Count 328 K/mm3 (150-450); RBC Distribution Width CV 12.5 % (11.6-14.6); RBC Distribution Width SD 42.8 fl (35.1-43.9); Red Blood Count 4.18 M/mm3 (4.2-5.4); White Blood Count 8.1 K/mm3 (4.4-11.0)
[2023-10-06 10:20] LABS: Anion Gap 4 (5-15); BUN 21 mg/dL (7-18); BUN/Creat Ratio 24.9 RATIO (10-20); Calcium,Total 9.5 mg/dL (8.5-10.1); Chloride 106 mmol/L (98-107); Creatinine, Serum 0.84 mg/dL (0.55-1.02); EST Glomerular Filtration Rate 77 mL/min (>60); Est Glom Filt Rate - Afr Amer 93 mL/min (>60); Glucose 101 mg/dL (74-106); Potassium 3.6 mmol/L (3.5-5.1); Sodium Level 140 mmol/L (136-145)
== END | disposition home or self-care (01) ==
LOC: LAB 09:07
PROVIDERS: PCP Internal Medicine; Referring Provider Internal Medicine; Visit Provider Internal Medicine
DX: I10 Essential (primary) hypertension (principal)
CPT/HCPCS: 36415; 80048; 85025

== ENCOUNTER → 2024-04-07 | Outpatient (CLI) | payer BC, SELFPAY ==
[2024-04-07 11:03] LABS: AST(SGOT) 15 U/L (15-37); Alanine Aminotransfer ALT/SGPT 24 U/L (13-56); Albumin, Serum 3.7 g/dL (3.2-5.0); Alkaline Phosphatase 52 U/L (45-117); Anion Gap 6 (5-15); BUN 16 mg/dL (7-18); Calcium,Total 9.8 mg/dL (8.5-10.1); Chloride 103 mmol/L (98-107); Cholesterol 141 mg/dL (200); Creatinine, Serum 0.94 mg/dL (0.55-1.02); EST Glomerular Filtration Rate 68 mL/min (>60); Est Glom Filt Rate - Afr Amer 82 mL/min (>60); Globulin 3.6 g/dL (2.2-4.2); Glucose 99 mg/dL (74-106); High Density Lipoprotein 46 mg/dL; Potassium 3.8 mmol/L (3.5-5.1); Protein, Total 7.3 g/dL (6.4-8.2); Sodium Level 138 mmol/L (136-145); Triglycerides 126 mg/dL; Very Low Density Lipoprotein 25 mg/dL (5-40)
== END | disposition home or self-care (01) ==
LOC: MTLAB 07:45
PROVIDERS: PCP Internal Medicine; Referring Provider Internal Medicine; Visit Provider Internal Medicine
DX: I10 Essential (primary) hypertension (principal)
CPT/HCPCS: 36415; 80053; 80061

== ENCOUNTER → 2024-06-02 | Outpatient (CLI) | payer BC, SELFPAY ==
--- NOTE | 2024-06-02 07:38 | BI_ITS ---
MAMMOGRAPHY - BILATERAL SCREENING 3-D TOMOSYNTHESIS REASON FOR EXAM: Female, 49 years old. breast cancer screening PERTINENT HISTORY: No significant family history. TECHNIQUE: 2-D mammograms and 3-D Tomosynthesis of the breast (s) were performed. CAD was performed. COMPARISON: 06/01/2023 FINDINGS: The breast composition is heterogeneously dense that can obscure small breast masses. Scattered benign calcifications are seen. No dense spiculated masses or suspicious microcalcifications are identified. No architectural distortion is identified. There is no skin thickening or retraction. There has been no significant change since the prior study. BI/SCRN MAMM (CAD)W/AJIT BILAT IMPRESSION: No mammographic signs of malignancy. Routine yearly mammograms recommended. ASSESSMENT CATEGORY: BIRADS Category 1: Negative. A letter regarding these results will be sent to the patient by the facility within 30 days. FOLLOW UP RECOMMENDATION: Yearly follow up mammogram recommended. (A) Approximately 10% of breast cancers are not detected by mammography. A normal mammogram should not delay biopsy of a clinically suspicious abnormality. Electronically Signed: Dandy Kern MD at 9:10 EST ,
== END | disposition home or self-care (01) ==
LOC: OPBI 07:38
PROVIDERS: PCP Internal Medicine; Referring Provider Obstetrics & Gynecology; Visit Provider Obstetrics & Gynecology
DX: Z12.31 Encounter for screening mammogram for malignant neoplasm of breast (principal)
CPT/HCPCS: 77063; 77067

== ENCOUNTER → 2024-08-12 | Outpatient (CLI) | payer BC, SELFPAY ==
[2024-08-12 10:14] LABS: Absolute Lymphocyte Count 1.88 X10^3/uL (0.83-4.51); Absolute Neutrophil Count 4.1 X10^3/uL (2.0-7.7); Basophil# 0.03 X10^3/uL; Basophil% 0.5 % (0-1); Eosinophil# 0.18 X10^3/uL; Eosinophils% 2.7 % (0-5); Hematocrit 41.2 % (37-47); Hemoglobin 14.3 g/dL (12.0-15.0); Lymphocyte # 1.88 X10^3/ul (0.83-4.51); Lymphocyte % 28.4 % (19-41); Mean Corp Hgb Conc 34.7 g/dL (32-36); Mean Corpuscular Hgb 31.1 pg (27.0-32.0); Mean Corpuscular Volume 89.6 fL (81-99); Mean Platelet Vol. 10.5 fl (6.2-12.0); Monocyte# 0.43 X10^3/uL; Monocyte% 6.5 % (0-10); NRBC Flagged by Analyzer 0 % (0-5); Neutrophil # 4.07 X10^3/uL (2.7-7.7); Neutrophil % 61.4 % (47-70); Platelet Count 344 K/mm3 (150-450); RBC Distribution Width SD 39.1 fl (35.1-43.9); White Blood Count 6.6 K/mm3 (4.4-11.0)
[2024-08-12 11:39] LABS: ALB/GLOB Ratio 0.9 RATIO (0.9-2.4); AST(SGOT) 17 U/L (15-37); Alanine Aminotransfer ALT/SGPT 29 U/L (13-56); Albumin, Serum 3.9 g/dL (3.2-5.0); Alkaline Phosphatase 73 U/L (45-117); Anion Gap 10 (5-15); BUN 16 mg/dL (7-18); BUN/Creat Ratio 16.2 RATIO (10-20); Calcium,Total 10.4 mg/dL (8.5-10.1); Chloride 100 mmol/L (98-107); Cholesterol 133 mg/dL (200); Creatinine, Serum 0.99 mg/dL (0.55-1.02); EST Glomerular Filtration Rate 64 mL/min (>60); Est Glom Filt Rate - Afr Amer 77 mL/min (>60); Globulin 4.5 g/dL (2.2-4.2); Glucose 99 mg/dL (74-106); High Density Lipoprotein 46 mg/dL; Potassium 3.2 mmol/L (3.5-5.1); Protein, Total 8.4 g/dL (6.4-8.2); Sodium Level 136 mmol/L (136-145); Triglycerides 95 mg/dL; Very Low Density Lipoprotein 19 mg/dL (5-40)
== END | disposition home or self-care (01) ==
LOC: MTLAB 07:39
PROVIDERS: PCP Internal Medicine; Referring Provider Physician Assistant; Visit Provider Physician Assistant
DX: E78.2 Mixed hyperlipidemia (principal); I10 Essential (primary) hypertension; E04.1 Nontoxic single thyroid nodule
CPT/HCPCS: 36415; 80053; 80061; 84443; 85025

== ENCOUNTER → 2024-10-01 | Outpatient (CLI) | payer BC, SELFPAY ==
[2024-10-01 13:09] LABS: Anion Gap 11 (5-15); BUN 21 mg/dL (4-19); BUN/Creat Ratio 26.5 RATIO (10-20); Calcium,Total 10.5 mg/dL (7.6-11.0); Carbon Dioxide 25.9 mmol/L (21.0-32.0); Chloride 100 mmol/L (98-108); Creatinine, Serum 0.79 mg/dL (0.70-1.20); EST Glomerular Filtration Rate 92 (>60); Glucose 97 mg/dL (70-99); Potassium 4.5 mmol/L (3.3-5.1); Sodium Level 137 mmol/L (133-145)
== END | disposition home or self-care (01) ==
PROVIDERS: PCP Internal Medicine; Referring Provider Internal Medicine; Visit Provider Internal Medicine
DX: I10 Essential (primary) hypertension (principal)
CPT/HCPCS: 36415; 80048

== ENCOUNTER → 2024-10-02 | Outpatient (CLI) | payer BC, SELFPAY ==
[2024-10-02 13:04] LABS: PTHIN 37 pg/mL (11-61)
== END | disposition home or self-care (01) ==
LOC: BIMLAB 08:22
PROVIDERS: PCP Internal Medicine; Referring Provider Internal Medicine; Visit Provider Internal Medicine
DX: E83.52 Hypercalcemia (principal)
CPT/HCPCS: 36415; 82306; 83970

== ENCOUNTER → 2025-01-28 | Outpatient (CLI) | payer BC, SELFPAY ==
[2025-01-28 12:37] LABS: Anion Gap 12 (5-15); BUN 16 mg/dL (4-19); BUN/Creat Ratio 18.7 RATIO (10-20); Calcium,Total 9.9 mg/dL (7.6-11.0); Carbon Dioxide 24.8 mmol/L (21.0-32.0); Chloride 100 mmol/L (98-108); Glucose 97 mg/dL (70-99); Potassium 4.0 mmol/L (3.3-5.1)
== END | disposition home or self-care (01) ==
LOC: BIMLAB 09:37
PROVIDERS: PCP Internal Medicine; Referring Provider Internal Medicine; Visit Provider Internal Medicine
DX: I10 Essential (primary) hypertension (principal)
CPT/HCPCS: 36415; 80048

== ENCOUNTER → 2025-06-23 | Outpatient (CLI) | payer BC, SELFPAY ==
--- NOTE | 2025-06-23 14:30 | BI_ITS ---
EXAM: SCRN MAMM (CAD)W/AJIT BILAT DATE: 06/23/2025 CLINICAL HISTORY: F, Age 50 y/o , SCREENING No family history. TECHNIQUE: Procedure Code: [id number] Modality: MG Procedure: SCRN MAMM (CAD)W/AJIT BILAT COMPARISON: Prior exam(s) dated June 02, 2024.. FINDINGS: TISSUE DENSITY: The breasts are heterogeneously dense, which may obscure small masses. Bilateral Breast Mammographic Findings: No significant masses, calcifications or other abnormalities are identified. Stable asymmetry of breast tissue were more breast tissue is seen in the upper-outer quadrant of the right breast as compared to the left side. Stable small benign-appearing bilateral axillary lymph nodes. No suspicious masses, areas of developing architectural distortion, or suspicious calcifications. There has been no significant interval change. BI/SCRN MAMM (CAD)W/AJIT BILAT IMPRESSION: Stable bilateral screening mammogram. OVERALL FINAL ASSESSMENT BI-RADS 2: BENIGN RECOMMENDATION: Routine annual follow-up in 1 Year Additional Recommendation none A letter with findings and recommendations will be mailed to the patient. Reading Location: [id number]
--- OUTSIDE RECORDS SUMMARY | 2025-06-23 20:11 | XMS RPT_ITS | CCD ---
Author Organization [facility] Care Team Providers Care Probation Counselor Name Role Phone Brigido Wick Unavailable Unavailable Sudha Sutton MD Unavailable [phone] Jeanmarie, Dr. Quick Primary Care Provider [phone] 0) Jeanmarie, Dr. Quick Attending Provider [phone] Jeanmarie, Dr. Quick Referring Provider [phone] Jeanmarie, Dr. Quick Primary Care Provider 1(33 0) Jeanmarie, Dr. Quick Attending Provider [phone] Jeanmarie, Dr. Quick Referring Provider [phone] Dr. Sudha Sutton Attending Provider 1(330 [phone] Jeanmarie, Dr. Quick Primary Care Provider 1(33 0) Jeanmarie, Dr. Quick Attending Provider [phone] Dr. Ynes Murry Referring Provider [phone] Dr. Ynes Murry Primary Care Provider 1(33 0) Dr. Ynes Murry Attending Provider [phone] Dr. Ynes Murry Referring Provider [phone] Jeanmarie, Dr. Quick Primary Care Provider 1(33 0) Jeanmarie, Dr. Quick Attending Provider [phone])2 Dr. Ynes Murry Referring Provider [phone])2 Dr. Sudha Sutton Attending Provider [phone] [phone] Jeanmarie CASTILLO, Dr. Quick Primary Care Provider Jeanmarie CASTILLO, Dr. Quick Referring Provider 1(33 0) Herman CASTILLO, Dr. Haley Attending Provider Armani Mckeon Attending Provider [phone] Armani Mckeon Referring Provider [phone] Jeanmarie CASTILLO, Dr. Quick Attending Provider 1(33 0) Jeanmarie CASTILLO, Dr. Quick Primary Care Provider Jeanmarie CASTILLO, Dr. Quick Referring Provider 1(33 0) Jeanmarie CASTILLO, Dr. Quick Primary Care Provider Jeanmarie CASTILLO, Dr. Quick Attending Provider 1(33 0) Jeanmarie CASTILLO, Dr. Quick Referring Provider 1(33 0) Star Williamson Attending Provider Oleghe, Efewongbe Primary Care Unavailable Sudha Sutton Attending Unavailable Oleghe, Efewongbe Referring Unavailable Armani Mckeon Attending Unavailable Oleghe, Efewongbe Primary Care Unavailable Oleghe, Efewongbe Referring Unavailable Oleghe, Efewongbe Primary Care Unavailable Oleghe, Efewongbe Attending Unavailable Oleghe, Efewongbe Referring Unavailable Oleghe, Efewongbe Attending Unavailable Oleghe, Efewongbe Referring Unavailable Oleghe, Efewongbe Primary Care Unavailable Oleghe, Efewongbe Attending Unavailable Oleghe, Efewongbe Referring Unavailable Oleghe, Efewongbe Primary Care Unavailable Sudha Sutton Attending Unavailable Sudha Sutton Referring Unavailable Oleghe, Efewongbe Primary Care Unavailable Oleghe, Efewongbe Primary Care Unavailable Armani Mckeon Attending Unavailable Armani Mckeon Referring Unavailable Oleghe, Efewongbe Primary Care Unavailable Oleghe, Efewongbe Attending Unavailable Oleghe, Efewongbe Referring Unavailable Oleghe, Efewongbe Attending Unavailable Olesariahe, Efewongbe Referring Unavailable Olesariahe, Efewongbe Primary Care Unavailable Olesariahe, Efewongbe Referring Unavailable Star Williamson Attending Unavailable Olesariahe, Efewongbe Primary Care Unavailable Olesariahe, Efewongbe Attending Unavailable Olesariahe, Efewongbe Referring Unavailable Olesariahe, Efewongbe Primary Care Unavailable Medications Current Medications Medication Drug Class(es) Dates Sig (Normalized) Sig (Original) [id number] 200 actuat albuterol 0.09 mg/actuat metered dose inhaler (20 sources) beta2-Adrenergic Agonist Start: 03-19-2025 Albuterol Sulfate (Ventolin Hfa) 90 mcg/actuation HFA aerosol inhaler Active 2 NMA INHALATION EVERY 4-6 HOURS as needed for shortness of breath or wheezing 6.7 0 March 19, 2025 12:00am Start: 01-11-2018 Albuterol Sulf ate (Proair Hfa) 90 mcg/actuation HFA aerosol inhaler Active 2 NMA INHALATION EVERY 6 HOURS as needed for ASTHMA January 11, 2018 12:00am Start: 01-11-2018 take 1 puff(s) by in halation every six hours Albuterol Sulfate (Proair Hfa) 90 mcg/actuation HFA aerosol inhaler Active 2 PUFF INHALATION EVERY 6 HOURS January 11, 2018 12:00am Start: 03-16-2017 PROAIR HFA AER S as needed ALBUTEROL SULFATE AERS [id number] Brigido Wick Start: 03-16-2017 PROAIR HFA AER S as needed ALBUTEROL SULFATE AERS [id number] Brigido Wick Start: 05-07-2014 End: 01-11-2018 Albuterol Inhaler Discontinu ed 1 NMA PO EVERY 6 HOURS NEEDED as needed for Allergies May 07, 2014 12:00am January 11, 2018 10:17am Start: 05-07-2014 End: 01-11-2018 take 1 spray(s) by mouth every six hours as needed Albuterol Inhaler Discontinued 1 SPRAY PO EVERY 6 HOURS NEEDED May 06, 2014 11:00pm January 11, 2018 9:17am Start: 05-07-2014 End: 01-11-2018 take 1 spray(s) by mouth every six hours as needed Albuterol Inhaler Discontinued 1 SPRAY PO EVERY 6 HOURS NEEDED May 07, 2014 12:00am January 11, 2018 10:17am amoxicillin 875 mg / clavulanate 125 mg oral tablet (19 sources) Penicillin-class Antibacterial Start: 03-19-2025 Amoxicillin-Pot Clavulanate 875-125 mg tablet Active 1 {tbl} PO Q12H 20 10 0 March 19, 2025 12:00am March 28, 2025 12:00am Acute sinusitis, unspecified Start: 12-28-2023 End: 01-14-2024 Amoxicillin-Pot Clavulanate 875-125 mg tablet Discontinued 1 {tbl} PO Q12H 14 0 December 28, 2023 12:00am January 14, 2024 8:09am Start: 05-14-2021 End: 05-24-2021 Amoxicillin-Pot Clavulanate (Augmentin) 875-125 mg tablet Discontinued 1 {tbl} PO TWICE A DAY 20 10 0 May 14, 2021 12:00am May 23, 2021 1:00am May 24, 2021 1:01am take with food calcium ascorbate 500 mg oral tablet (13 sources) Start: 05-20-2018 take 1 tablet by mouth twice daily Ascorbate Calcium (Vitamin C) 500 mg tablet Active 500 mg PO TWICE A DAY May 20, 2018 1:00am calcium carbonate 1250 mg chewable tablet (5 sources) Start: 06-16-2024 take 1 tablet by mouth once daily Calcium Carbonate (Calcium 500) 500 mg calcium (1,250 mg) tablet,chewable Active 500 mg PO daily June 16, 2024 1:00am cholecalciferol 0.05 mg oral capsule (13 sources) Vitamin D Start: 05-09-2018 take 1 capsule by mouth once daily Cholecalciferol (Vitamin D3) 2,000 unit capsule Active 2000 U PO DAILY May 09, 2018 12:00am Ipratropium [place] 21 mcg (0.03 %) spray,non-aerosol (1 source) Start: 03-19-2025 Ipratropium [place] 21 mcg (0.03 %) spray,non-aerosol Active 2 NMA INTRANASAL 2 to 3 times per day as needed for postnasal drainage March 19, 2025 12:00am administer into each nostril levonorgestrel 0.147935 mg/hr intrauterine system (16 sources) Progestin, Progestin-contain ing Intrauterine Device Start: 01-11-2018 Levonorgestrel (Mirena) 20 mcg/24 hr (5 years) intrauterine device Active 1 NMA INTRA-UTER ONCE January 11, 2018 12:00am Start: 01-11-2018 Levonorgestrel (Mirena) 20 mcg/24 hr (5 years) intrauterine device Active 1 INSERT INTRA-UTER ONCE January 11, 2018 12:00am Start: 03-16-2017 MIRENA (52 MG) IUD LEVONORGESTREL IUD [id number] Brigido Wick Start: 03-16-2017 MIRENA (52 MG) IUD LEVONORGESTREL IUD [id number] Brigido Wick lisinopril 20 mg oral tablet (20 sources) Angiotensin Converting Enzyme Inhibitor Start: 01-03-2024 End: 03-02-2025 take 1 tablet by mouth once daily Lisinopril 20 mg tablet Active 20 mg PO DAILY 90 March 02, 2025 8:41pm Start: 08-19-2020 End: 01-03-2024 take 1 tablet by mouth once daily Lisinopril 10 mg tablet Discontinued 10 mg PO DAILY 90 November 07, 2023 11:34am January 03, 2024 10:51am Start: 10-15-2018 End: 08-19-2020 take 1 tablet by mouth once daily Lisinopril 5 mg tablet Discontinued 5 mg PO DAILY 90 November 04, 2019 1:33pm August 19, 2020 3:32pm methylPREDNISolone 4 mg oral tablet (6 sources) Corticosteroid Start: 03-19-2025 take 1 tablet by mouth once Methylprednisolone (Medrol (Cesar)) 4 mg tablets,dose pack Active 4 mg PO per package directions 21 6 March 19, 2025 12:00am March 24, 2025 12:00am Start: 11-09-2023 End: 11-15-2023 take 1 tablet by mouth once Methylprednisolone (Medrol (Cesar)) 4 mg tablets,dose pack Discontinued 4 mg PO per package directions 21 6 November 09, 2023 12:00am November 14, 2023 12:00am November 15, 2023 12:06am multivitamin capsule (8 sources) Start: 01-11-2018 take 1 capsule by mouth once daily in the morning multivitamin capsule Active 1 CAP PO EVERY MORNING January 10, 2018 11:00pm Start: 01-11-2018 take 1 capsule by mo uth once daily in the morning multivitamin capsule Active 1 CAP PO EVERY MORNING January 11, 2018 12:00am Multivitamin capsule (5 sources) Start: 01-11-2018 Multivitamin c apsule Active 1 NMA PO EVERY MORNING January 11, 2018 12:00am Completed/Discontinued Medications Medication Drug Class(es) Dates Sig (Normalized) Sig (Original) allergy injections (13 sources) Start: 01-11-2018 End: 06-05-2022 allergy injections Discontinued IM 0 January 11, 2018 12:00am June 05, 2022 10:38am Start: 01-11-2018 End: 06-05-2022 allergy injections Discontin ued IM January 11, 2018 12:00am June 05, 2022 10:38am Start: 01-11-2018 End: 06-05-2022 allergy injections Discontin ued IM January 10, 2018 11:00pm June 05, 2022 9:38am Start: 01-11-2018 allergy inject ions Active IM January 11, 2018 12:00am azithromycin 250 mg oral tablet (5 sources) Macrolide Antimicrobial Start: 11-09-2023 End: 12-28-2023 take 2-5 tablets by mouth once daily Azithromycin 250 mg tablet Discontinued 0 PO .COMPLEX 6 0 November 09, 2023 12:00am December 28, 2023 4:06pm take 500 mg today (day 1), then 250 mg for 4 days (days 2-5) PO CALCIUM-VITAMIN D-VITAMIN K CHEW (3 sources) Start: 03-16-2017 VIACTIV CHEW two chews daily CALCIUM-VITAMIN D-VITAMIN K CHEW [id number] Brigido Wick Start: 03-16-2017 VIACTIV CHEW t wo chews daily CALCIUM-VITAMIN D- VITAMIN K CHEW [id number] Brigido Wick fluticasone propionate 0.05 mg/actuat metered dose nasal spray (20 sources) Corticosteroid Start: 04-14-2020 End: 01-31-2021 Fluticasone Propionate 50 mcg/actuation spray,suspension Discontinued 2 NMA INTRANASAL DAILY as needed for allergy symptoms 9.9 3 January 12, 2021 10:01am January 31, 2021 4:42pm administer into each nostril Start: 01-11-2018 End: 04-14-2020 Fluticasone Propionate (Chil dren's Flonase Allergy Rlf) 50 mcg/actuation spray,suspension Discontinued 2 NMA INTRANASAL daily 19.8 2 February 13, 2020 9:08am April 14, 2020 2:51pm Start: 01-11-2018 End: 01-31-2021 take 1 spray(s) nasal route once daily Fluticasone Propionate Discontinued 2 SPRAY INTRANASAL DAILY 9.9 January 12, 2021 10:01am January 31, 2021 4:42pm administer into each nostril Start: 03-16-2017 FLONASE SUSP t wo sprays daily FLUTICASONE PROPIONATE SUSP [id number] Brigido Wick Start: 03-16-2017 FLONASE SUSP t wo sprays daily FLUTICASONE PROPIONATE SUSP [id number] Brigido Wick hydroCHLOROthiazide 25 mg oral tablet (20 sources) Thiazide Diuretic Start: 09-17-2018 End: 10-13-2024 take 1 tablet by mouth once daily Hydrochlorothiazide 25 mg tablet Discontinued 25 mg PO DAILY 90 3 October 12, 2023 12:28pm October 13, 2024 4:41pm meloxicam 15 mg oral tablet (13 sources) Nonsteroidal Anti-inflammator y Drug Start: 07-18-2021 End: 10-04-2021 take 1 tablet by mouth once daily Meloxicam 15 mg tablet Discontinued 15 mg PO DAILY 30 0 July 18, 2021 1:00am October 04, 2021 8:23am Greater trochanteric bursitis of right hip Trochanteric bursitis, right hip bursitis Do not take in conjunction with other NSAIDs. MULTIPLE VITAMINS-MINERALS (1 source) Start: 03-16-2017 take 1 tablet by mouth once daily MULTIVITAMIN ADULT CHEW One tablet by mouth daily MULTIPLE VITAMINS-MINERALS [id number] Brigido Wick MULTIPLE VITAMINS-MINERALS (2 sources) Start: 03-16-2017 take 1 tablet by mouth once daily MULTIVITAMIN ADULT CHEW One tablet by mouth daily MULTIPLE VITAMINS-MINERALS [id number] Brigido Wick Nirmatrelvir-Ritonavir (Paxlovid) 300 mg (150 mg x 2)-100 mg tablets,dose pack (5 sources) Start: 03-21-2024 End: 04-14-2024 Nirmatrelvir-Ritonavir (Paxlovid) 300 mg (150 mg x 2)-100 mg tablets,dose pack Discontinued 0 PO .COMPLEX March 21, 2024 12:00am April 14, 2024 8:13am take TWO 150 mg tablets of nirmatrelvir with ONE 100 mg tablet of ritonavir twice daily for 5 days PO Start: 03-21-2024 End: 04-14-2024 Nirmatrelvir-Ritonavir (Paxl ovid) 300 mg (150 mg x 2)-100 mg tablets,dose pack Discontinued 0 PO .COMPLEX March 21, 2024 12:00am April 14, 2024 8:13am take TWO 150 mg tablets of nirmatrelvir with ONE 100 mg tablet of ritonavir twice daily for 5 days PO Drug Treatment Unknown - unknown (1 source) No information available. oseltamivir 75 mg oral capsule (13 sources) Neuraminidase Inhibitor Start: 08-12-19 End: 02-13-20 20 take 1 capsule by mouth once daily Oseltamivir (Tamiflu) 75 mg capsule Discontinued 75 mg PO DAILY 7 August 12, 2019 1:00am February 13, 2020 8:01am Vit,Nigel 98-Jzqr-Luzam 1 TABLET tablet (1 source) Start: 05-07-20 14 End: 01-12-20 18 Vit,Nigel 60-Aikx-Npwuf 1 TABLET tablet Discontinued 1 {tbl} PO DAILY May 07, 2014 12:00am January 11, 2018 10:17am Vit,Quzb25-Xtai-Fvya c (8 sources) Start: 05-07-20 14 End: 01-12-20 18 take 1 tablet by mouth once daily Vit,Ylzk57-Fhob-Ienb c Discontinued 1 TABLET PO DAILY May 06, 2014 11:00pm January 11, 2018 9:17am Start: 05-07-2014 End: 01-11-2018 take 1 tablet by mouth once daily Vit,Vkfh14-Lbgk-Plpbg Discontinued 1 TABLET PO DAILY May 07, 2014 12:00am January 11, 2018 10:17am Vit,Esqd85-Itwr-Issjl 1 TABLET tablet (4 sources) Start: 05-07-2014 End: 01-11-2018 take 1 tablet by mouth once daily Vit,Jxol07-Bmfq-Omccr 1 TABLET tablet Discontinued 1 {tbl} PO DAILY May 07, 2014 12:00am January 11, 2018 10:17am rosuvastatin calcium 10 mg oral tablet (20 sources) HMG-CoA Reductase Inhibitor Start: 06-27-2022 End: 02-02-2025 take 1 tablet by mouth once daily Rosuvastatin 10 mg tablet Discontinued 10 mg PO DAILY 90 3 February 08, 2024 1:41pm February 02, 2025 9:15am Start: 04-10-2022 End: 06-27-2022 take 1 tablet by mouth once daily Rosuvastatin 20 mg tablet Discontinued 0 .ROUTE .COMPLEX 60 2 June 02, 2022 10:37am June 27, 2022 1:54pm TAKE 1 TABLET BY MOUTH EVERY DAY Problems Active Problems Problem Classification Problem Date Documented Date Episodic/Chronic Abdominal hernia (13 sources) Umbilical hernia; Translations: [Umbilical hernia without obstruction or gangrene] 09-17-2018 Episodic Acute bronchitis (5 sources) Acute bronchitis; Translations: [Acute bronchitis, unspecified] 11-09-2023 Episodic Asthma (18 sources) Asthma; Translations: [Unspecified asthma, uncomplicated] 03-16-2017 Chronic Comment on above: INHALER PRN, LAST 3- 6 MONTHS AGO Blindness and vision defects (10 sources) Abnormal vision; Translations: [Unspecified visual disturbance] 10-01-2024 Episodic Contraceptive and procreative management (13 sources) Intrauterine contraceptive device in situ; Translations: [Presence of (intrauterine) contraceptive device] 08-06-2019 Episodic Comment on above: Mirena 06/2019 Disorders of lipid metabolism (20 sources) Hyperlipidemia; Translations: [Hyperlipidemia, unspecified] Onset: 08-29-2024 Chronic Essential hypertension (20 sources) Hypertensive disorder; Translations: [Essential (primary) hypertension] Onset: 02-03-2025 Chronic Immunizations and screening for infectious disease (12 sources) Needs influenza immunization; Translations: [Encounter for immunization] 04-09-2023 Episodic Other non-traumatic joint disorders (13 sources) Hip pain; Translations: [Pain in right hip] 07-04-2021 Episodic Other non-traumatic joint disorders (12 sources) Ankle edema; Translations: [Effusion, right ankle] 06-20-2024 Episodic Other nutritional; endocrine; and metabolic disorders (5 sources) Hypercalcemia; Translations: [Hypercalcemia] 10-01-2024 Chronic Other nutritional; endocrine; and metabolic disorders (1 source) Hypercalcemia; Translations: [Hypercalcemia] Onset: 10-07-2024 Chronic Other upper respiratory disease (13 sources) Seasonal allergy; Translations: [Other seasonal allergic rhinitis] 09-17-2018 Chronic Other upper respiratory infections (13 sources) Sinusitis; Translations: [Chronic sinusitis, unspecified] 05-14-2021 Chronic Other upper respiratory infections (3 sources) Acute sinusitis; Translations: [Acute sinusitis, unspecified] Onset: 03-19-2025 03-19-2025 Episodic Otitis media and related conditions (5 sources) Acute bilateral otitis media ; Translations: [Otitis media, unspecified, bilateral] 12-28-2023 Episodic Thyroid disorders (16 sources) Thyroid nodule; Translations: [Nontoxic single thyroid nodule] Onset: 06-20-2024 10-11-2022 Chronic Unclassified (4 sources) Screening mammography ; Translations: [Encounter for screening mammogram for malignant neoplasm of breast] Onset: 01-25-2017 01-25-2017 Unclassified (2 sources) Gynecologic examination ; Translations: [Encounter for gynecological examination (general) (routine) without abnormal findings] Onset: 04-11-2017 04-11-2017 Past or Other Problems Problem Classification Problem Date Documented Da te Episodic/Chronic Other non-traumatic joint disorders (1 source) Effusion, right ankle; Translations: [Effusion, right ankle] Onset: 06-20-2024 Episodic Other non-traumatic joint disorders (1 source) Effusion, left ankle; Translations: [Effusion, left ankle] Onset: 06-20-2024 Episodic Other screening for suspected conditions (not mental disorders or infectious disease) (14 sources) Patient encounter status; Translations: [Encounter for screening for malignant neoplasm of colon] Onset: 07-07-2024 03-28-2021 Episodic Results Test Name Value Interpretation Reference Range Facility Internal Medicine Office Vis jaime 05-20-2025 Internal Medicine Office Visit [facility] Internal Medicine [address] [place] [address] OFFICE VISIT Date of Service: 05/20/25 MR#: [id number] Acct: [id number] Name: RUPAL BELL Rep #: [id number] : 1975 Provider: Dr. 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: No Accompanied by: Self Is patient in pain?: No Allergies No Known Allergies Allergy (Verified 05/20/25 07:57) Medications ???Medication ???Instructions ???Recorded ???Confirmed ???Type albuterol sulfate 90 mcg/actuation 2 puff inhalation Q6H PRN ASTHMA 01/11/18 05/20/25 History aerosol inhaler (ProAir HFA) levonorgestrel (Mirena) 1 insert intrauterine ONCE 8 05/20/25 History multivitamin 1 cap PO QAM 01/11/18 05/20/25 His tory cholecalciferol (vitamin D3) 50 2,000 unit PO DAILY 05/09/1805/20 History mcg (2,000 unit) capsule ascorbate calcium (vitamin C) 500 500 mg PO BID 05/20/18 05/20/25 H istory mg tablet fluticasone propionate 50 2 spray intranasal DAILY PRN 01/3105/20/25 Rx mcg/actuation nasal allergy symptoms #9.9 mL spray,suspension calcium carbonate (Calcium 500) 500 mg PO QDAY 06/16/24 05/20/25 H istory hydrochlorothiazide 25 mg tablet 25 mg PO DAILY #90 tabs 10/13/24 1 07/20/24 Rx rosuvastatin 10 mg tablet 10 mg PO DAILY #90 tabs 02/02/25 1 07/20/24 Rx lisinopril 20 mg tablet 20 mg PO DAILY #90 tabs 03/02/25 1 07/20/24 Rx albuterol sulfate 90 mcg/actuation 2 puff inhalation Q4-6H PRN 03/0905/20/25 Rx aerosol inhaler (Ventolin HFA) shortness of breath or wheezing #6.7 grams ipratropium bromide 21 mcg (0.03 2 spray intranasal BID-TID PRN 06/0205/20/25 Rx %) nasal spray postnasal drainage #30 mL Nurse's Note: 4 MONTH FU DOING [facility] Medical History (Updated 05/20/25 @ 08:[address] Ynes Murry MD) Right groin pain Serum calcium elevated Vision abnormalities Flu vaccine need Health care maintenance Hypertension Hyperlipidemia Right hip pain Non-smoker Colon cancer screening Hypertension BP (high blood pressure) Thyroid nodule Umbilical hernia Seasonal allergies Asthma Surgical History H/O dilation and curettage ( 2010) Family History Father Asthma Hyperlipemia Parkinson disease Mother Hypertension Cancer Sub tissue carcoma Grandfather Myocardial infarction, Onset Age: 55 Son Asthma Social History adopted: No household members: family housing: house number of children: 2 current occupational status: employed current occupation: [employer], [place] right now pets and animals: No history of recent travel: No Smoking Status: Never smoker second hand exposure: No alcohol intake: current alcohol intake frequency: a few times a week details: social substance use type: does not use caffeine: Yes what type of physical activity do you participate in: none and walking seatbelt use: always do you feel safe at home: Yes additional social history: - Satya HPI HPI Chief Complaint: Follow-up Details: RUPAL BELL, is a 50 F who presents to the office today for follow-up of her chronic medical conditions. Also has some concerns. She reports an episode of right sided burning pain. Started in the evening and in the morning, pain evolved. No vaginal bleeding. Currently has a Mirena in place. Follows up with [facility] and has an appointment shortly. Plans to bring this up with her [employer] as well. History of hypertension, blood pressure today at 118/62 mmHg. She reports compliance with her medication, currently on lisinopril and hydrochlorothiazide. No concerning side effects. Also history of hyperlipidemia on rosuvastatin. Tolerating medication well. No muscle pain or weakness. Other chronic medical conditions are stable. ROS Const Constitutional: No body ache, excessive sweating, fatigue, fever(s), frequent falls, headache(s), snoring, weakness, weight change, sleep problems or change in appetite Eyes Eyes: No blurry vision, change in vision, bulging eyes, floaters, eye pain or Light sensitivity ENT ENT: No abnormal hearing, ear or mastoid pain, tinnitus, balance problems, nosebleed/ (more content not included)... Normal [facility] Urgent Care Visit Reporton 0 03-19-2025 Urgent Care Visit Report [facility] [address], [address] [place] [address] OFFICE VISIT Date of Service: 03/19/25 MR#: [id number] Acct: [id number] Name: RUPAL BELL Rep #: [id number] : 1975 Provider: ANKUR Chapman Age/Sex: 50/F Location: [facility] Status: Signed Intake Vital Signs 01/28/25 09:11 03/19/25 13:12 Height 5 ft 6 in 5 ft 6 in Weight: 209 lb BMI 33.7 BP 118/70 112/78 Blood Pressure Location Lt brachial Rt brachial Position Sitting Sitting Respiration 16 16 Pulse 80 72 Pulse Source Monitor Monitor Temp 96.3 F L 98.5 F Temp Source Temporal Temporal Pulse Oximetry (%) 95 97 Oxygen Delivery Method room air room air Intake Visit Reasons: CONCERN FOR SINUS INFECTION 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[employer] Coordinator Required: No Accompanied by: Self Is patient in pain?: Yes (Sinus pain, headache) Pain scale (1-10): 4 Allergies No Known Allergies Allergy (Verified 03/19/25 13:08) Medications ???Medication ???Instructions ???Recorded ???Confirmed ???Type albuterol sulfate 90 mcg/actuation 2 puff inhalation Q6H PRN ASTHMA 01/11/18 03/19/25 History aerosol inhaler (ProAir HFA) levonorgestrel (Mirena) 1 insert intrauterine ONCE 8 03/19/25 History multivitamin 1 cap PO QAM 01/11/18 03/19/25 His tory cholecalciferol (vitamin D3) 50 2,000 unit PO DAILY 05/09/1803/19 History mcg (2,000 unit) capsule ascorbate calcium (vitamin C) 500 500 mg PO BID 05/20/18 03/19/25 H istory mg tablet fluticasone propionate 50 2 spray intranasal DAILY PRN 01/3103/19/25 Rx mcg/actuation nasal allergy symptoms #9.9 mL spray,suspension calcium carbonate (Calcium 500) 500 mg PO QDAY 06/16/24 03/19/25 H istory hydrochlorothiazide 25 mg tablet 25 mg PO DAILY #90 tabs 10/13/24 0 03/19/25 Rx rosuvastatin 10 mg tablet 10 mg PO DAILY #90 tabs 02/02/25 0 03/19/25 Rx lisinopril 20 mg tablet 20 mg PO DAILY #90 tabs 03/02/25 0 03/19/25 Rx albuterol sulfate 90 mcg/actuation 2 puff inhalation Q4-6H PRN 03/0903/19/25 Rx aerosol inhaler (Ventolin HFA) shortness of breath or wheezing #6.7 grams amoxicillin 875 mg-potassium 1 tab PO Q12H 10 days #20 tabs 06/0203/19/25 Rx clavulanate 125 mg tablet ipratropium bromide 21 mcg (0.03 2 spray intranasal BID-TID PRN 06/0203/19/25 Rx %) nasal spray postnasal drainage #30 mL methylprednisolone 4 mg tablets in 4 mg PO PER PKG DIR 6 days #21 t abs 03/19/25 03/19/25 Rx a dose pack (Medrol (Cesar)) Nurse's Note: Cough, dry that is especially bothersome at night. Chest congestion, sinus congestion, pressure with cloudy thick white drainage, and headache for 10 days. Denies fever or chills at this time. Negative home COVID test x 3 and last test 6 days ago. Benadryl taken with slight relief. [facility] Medical History Serum calcium elevated Vision abnormalities Flu vaccine need Health care maintenance Hypertension Hyperlipidemia Right hip pain Non-smoker Colon cancer screening Hypertension BP (high blood pressure) Thyroid nodule Umbilical hernia Seasonal allergies Asthma Surgical History H/O dilation and curettage ( 2010) Family History Father Asthma Hyperlipemia Parkinson disease Mother Hypertension Cancer Sub tissue carcoma Grandfather Myocardial infarction, Onset Age: 55 Son Asthma Social History adopted: No household members: family housing: house number of children: 2 current occupational status: employed 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 Patient denies hemoptysis, shortness of breath or difficulty breathing. No fever, chills or sweats. No nausea, vomiting or diarrhea. No loss of taste or smell. No other associated symptoms or alleviating/aggravati ng factors. ROS Const Constitutional: No other (6 system ROS completed with pertinent findings in the HPI otherwise normal.) Exam Const General: cooperative and healthy appearing [facility] Head: normal to inspection Ears: hearing grossly normal bilat (more content not included)... Normal [facility] Anion gap in Serum or Plasma Ordered By: Ynes Murry on 01-28-2025 Anion gap [Moles/Vol] 12 mmol/L - [facility] BUN/creatinine ratioOrdered By: Ynes Murry on 01-28-2025 Urea nitrogen/Creatinine [Mass ratio] 18.7 mg/mg 10-20 [facility] Basic Metabolic Profile (BMP )on 01-28-2025 BUN/CRE 18.7 RATIO Normal 10-20 [facility] Comment on above: Performed By: #### L 500.2500 #### [facility] [address] [place], [address] Calcium [Mass/Vol] 9.9 mg/dL Normal 7.6-11.0 [facility] Comment on above: Performed By: #### L 500.2500 #### [facility] [address] [place], [address] Chloride [Moles/Vol] 100 mmol/L Normal 98-108 [facility] Comment on above: Performed By: #### L 500.2500 #### [facility] [address] [place], [address] CO2 [Moles/Vol] 24.8 mmol/L Normal 21.0-32.0 [facility] Comment on above: Performed By: #### L 500.2500 #### [facility] [address] [place], [address] Creatinine [Mass/Vol] 0.84 mg/dL Normal 0.70-1.20 [facility] Comment on above: Performed By: #### L 500.2500 #### [facility] [address] [place], [address] GAP 12 Normal 5-15 [facility] Comment on above: Performed By: #### L 500.2500 #### [facility] [address] [place], [address] GFR/1.73 sq M.predicted among non-blacks MDRD (S/P/Bld) [Vol rate/Area] 86 mL/min/{1.73_m2} Normal >60 [facility] Comment on above: Result Comment: mL/m in/1.73m2 CKD-EPI Creatinine Equation (2020) Performed By: #### L 500.2500 #### [facility] [address] [place], [address] Glucose [Mass/Vol] 97 mg/dL Normal 70-99 [facility] Comment on above: Performed By: #### L 500.2500 #### [facility] [address] [place], [address] Potassium [Moles/Vol] 4.0 mmol/L Normal 3.3-5.1 [facility] Comment on above: Performed By: #### L 500.2500 #### [facility] [address] [place], [address] Sodium [Moles/Vol] 136 mmol/L Normal 133-145 [facility] Comment on above: Performed By: #### L 500.2500 #### [facility] [address] [place], [address] Urea nitrogen [Mass/Vol] 16 mg/dL Normal 4-19 [facility] Comment on above: Performed By: #### L 500.2500 #### [facility] [address] [place], [address] Carbon dioxide, total [Moles /volume] in Central venous bloodOrdered By: Ynes Murry on 01-28-2025 CO2 [Moles/Vol] 24.8 mmol/L 21.0-32.0 [facility] Chloride assayOrdered By: Benedict Murry on 01-28-2025 Chloride [Moles/Vol] 100 mmol/L 98-108 [facility] Glomerular filtration rate ( GFR) estimation/1.73 sq m using serum, plasma, or whole bOrdered By: Ynes Murry on 01-28-2025 GFR/1.73 sq M.predicted among non-blacks MDRD (S/P/Bld) [Vol rate/Area] 86 mL/min/{1.73_m2} >60 [facility] Comment on above: mL/min/1.73m2 CKD-EP I Creatinine Equation (2020) Internal Medicine Office Vis iton 01-28-2025 Internal Medicine Office Visit [facility] [address] [place] [address] [place] [address] OFFICE VISIT Date of Service: 01/28/25 MR#: [id number] Acct: [id number] Name: RUPAL BELL Rep #: [id number] : 1975 Provider: Dr. Ynes smith MD Age/Sex: 49/F Location: [facility] Status: Signed Intake Vital Signs 10/01/24 10:21 01/28/25 09:11 Height 5 ft 6 in 5 ft 6 in Weight: 209 lb BMI 33.7 BP 118/70 Blood Pressure Location Lt brachial Position Sitting Respiration 16 Pulse 80 Pulse Source Monitor Temp 96.3 F L Temp Source Temporal Pulse Oximetry (%) 95 Oxygen Delivery Method room air Intake Visit Reasons: 4 M FU Chief Complaint: Follow-up 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 Coordinator Required: No Accompanied by: Self Is patient in pain?: No Allergies No Known Allergies Allergy (Verified 01/28/25 09:07) Medications ???Medication ???Instructions ???Recorded ???Confirmed ???Type albuterol sulfate 90 mcg/actuation 2 puff inhalation Q6H PRN ASTHMA 01/11/18 01/28/25 History aerosol inhaler (ProAir HFA) levonorgestrel (Mirena) 1 insert intrauterine ONCE 8 01/28/25 History multivitamin 1 cap PO QAM 01/11/18 01/28/25 His tory cholecalciferol (vitamin D3) 50 2,000 unit PO DAILY 05/09/1801/28 History mcg (2,000 unit) capsule ascorbate calcium (vitamin C) 500 500 mg PO BID 05/20/18 01/28/25 H istory mg tablet fluticasone propionate 50 2 spray intranasal DAILY PRN 01/3101/28/25 Rx mcg/actuation nasal allergy symptoms #9.9 mL spray,suspension rosuvastatin 10 mg tablet 10 mg PO DAILY #90 tabs 02/08/24 0 01/28/25 Rx calcium carbonate (Calcium 500) 500 mg PO QDAY 06/16/24 01/28/25 H istory lisinopril 20 mg tablet 20 mg PO DAILY #90 tabs 03/03/25 0 01/28/25 Rx hydrochlorothiazide 25 mg tablet 25 mg PO DAILY #90 tabs 10/13/24 0 01/28/25 Rx Nurse's Note: [facility] Medical History Serum calcium elevated Vision abnormalities Flu vaccine need Health care maintenance Hypertension Hyperlipidemia Right hip pain Non-smoker Colon cancer screening Hypertension BP (high blood pressure) Thyroid nodule Umbilical hernia Seasonal allergies Asthma Surgical History H/O dilation and curettage ( 2010) Family History Father Asthma Hyperlipemia Parkinson disease Mother Hypertension Cancer Sub tissue carcoma Grandfather Myocardial infarction, Onset Age: 55 Son Asthma Social History adopted: No household members: family housing: house number of children: 2 current occupational status: employed current occupation: [employer], [employer] right now pets and animals: No history of recent travel: No Smoking Status: Never smoker second hand exposure: No alcohol intake: current alcohol intake frequency: a few times a week details: social substance use type: does not use caffeine: Yes what type of physical activity do you participate in: none and walking seatbelt use: always do you feel safe at home: Yes additional social history: - Satya [facility] HPI Chief Complaint: Follow-up Details: RUPAL BELL, is a 49-year-old female presenting for a routine follow-up and management of chronic conditions. She reports her blood pressure has been slightly elevated, with the highest reading being 127/68 mmHg, but generally well-controlled. She has been adhering to her antihypertensive medication regimen, including lisinopril and hydrochlorothiazide. The patient experienced leg swelling in the past, which has improved with the use of compression socks, especially during her recent trip to [place]. She engaged in significant walking during the trip without major issues. Was seen by ophthalmology following her last visit due to some vision abnormalities. Prior history of migraine, she was advised that her episodes will be likely due to aura without headaches which is not uncommon with age. She has had no further episodes. Other chronic medical conditions are stable. The patient is due for a colonoscopy next year, following her last procedure in 2020, with a recommended follow-up interval of five years. Attestation: Documentation on this patient encounter was supported using ambient scribe technology/ voice AI technology. The patient consented to recording for the purpose of documenting the encounter. Provider reviewed content of the generated note prior to signature. ROS Const Constitutional: No body ache, chills, excessive sweating, fatigue, fever(s), frequent falls, headache(s), snoring, weakness, weight change, sleep problems or change in appetite Eyes Eyes: No blurry vi (more content not included)... Normal [facility] Potassium measurement (mass/ volume)Ordered By: Ynes Murry on 01-28-2025 Potassium (Unsp spec) [Mass/Vol] 4.0 mmol/L 3.3-5.1 [facility] Serum creatinine measurement (mass/volume)Ordered By: [facility] Mur[facility] on 01-28-2025 Creatinine [Mass/Vol] 0.84 mg/dL 0.70-1.20 [facility] Serum glucose measurement (m ass/volume)Ordered By: [facility] Murry on 01-28-2025 Glucose [Mass/Vol] 97 mg/dL 70-99 [facility] Serum or plasma calcium misty urement (mass/volume)Ordered By: Ynes Murry on 01-28-2025 Calcium [Mass/Vol] 9.9 mg/dL 7.6-11.0 [facility] Serum or plasma urea nitroge n measurement (mass/volume)Ordered By: Ynes Murry on 01-28-2025 Urea nitrogen [Mass/Vol] 16 mg/dL 4-19 [facility] Sodium levelOrdered By: Grant Murry on 01-28-2025 Sodium [Moles/Vol] 136 mmol/L 133-145 [facility] L506.1001on 10-02-2024 Vitamin D 25-OH 49.0 ng/mL Normal 30-100 [facility] Comment on above: Result Comment: Cristy min D Status Deficiency: <20 ng/mL (50nmol/L) Insufficiency: 20-30 ng/mL (50-75 nmol/L) Sufficiency: 30-100 ng/mL (75-250 nmol/L) Toxicity: >100 ng/mL (>250 nmol/L) Performed By: #### L 506.1001, L509.1000 #### [facility] [address] [place], [address] PTH intactOrdered By: Meeta Murry on 10-02-2024 Parathyroid Hormone (Intact) 37 pg/mL [facility] PTHINon 10-02-2024 PTH 37 pg/mL Normal [facility] Comment on above: Performed By: #### L 506.1001, L509.1000 #### [facility] [address] [place], [place], [address] Vitamin D, 25-hydroxyOrdered By: Ynes Murry on 10-02-2024 Vitamin D 25-Hydroxy 49.0 ng/mL [facility] Comment on above: Vitamin D StatusDefi ciency: <20 ng/mL (50nmol/L)Insufficiency: 20-30 ng/mL (50-75 nmol/L)Sufficiency: 30-100 ng/mL (75-250 nmol/L)Toxicity: >100 ng/mL (>250 nmol/L) Anion gap in Serum or Plasma Ordered By: Ynes Murry on 10-01-2024 Anion gap [Moles/Vol] 11 mmol/L - [facility] BUN/creatinine ratioOrdered By: Ynes Murry on 10-01-2024 Urea nitrogen/Creatinine [Mass ratio] 26.5 mg/mg High 04-27 [facility] Basic Metabolic Profile (BMP )on 10-01-2024 BUN/CRE 26.5 RATIO High 04-27 [facility] Comment on above: Performed By: #### L 500.2500 #### [facility] [address] [place], [place], [id number] Calcium [Mass/Vol] 10.5 mg/dL Normal 7.6-11.0 [facility] Comment on above: Performed By: #### L 500.2500 #### [facility] [address] [place], [address] Chloride [Moles/Vol] 100 mmol/L Normal 98-108 [facility] Comment on above: Performed By: #### L 500.2500 #### [facility] [address] [place], [address] CO2 [Moles/Vol] 25.9 mmol/L Normal 21.0-32.0 [facility] Comment on above: Performed By: #### L 500.2500 #### [facility] [address] [place], [address] Creatinine [Mass/Vol] 0.79 mg/dL Normal 0.70-1.20 [facility] Comment on above: Performed By: #### L 500.2500 #### [facility] [address] [place], [address] GAP 11 Normal 5-15 [facility] Comment on above: Performed By: #### L 500.2500 #### [facility] [address] [place], [address] GFR/1.73 sq M.predicted among non-blacks MDRD (S/P/Bld) [Vol rate/Area] 92 mL/min/{1.73_m2} Normal >60 [facility] Comment on above: Result Comment: mL/m in/1.73m2 CKD-EPI Creatinine Equation (2020) Performed By: #### L 500.2500 #### [facility] [address] [place], [address] Glucose [Mass/Vol] 97 mg/dL Normal 70-99 [facility] Comment on above: Performed By: #### L 500.2500 #### [facility] [address] [place], [address] Potassium [Moles/Vol] 4.5 mmol/L Normal 3.3-5.1 [facility] Comment on above: Performed By: #### L 500.2500 #### [facility] [address] [place], [place], [address] Sodium [Moles/Vol] 137 mmol/L Normal 133-145 [facility] Comment on above: Performed By: #### L 500.2500 #### [facility] [address] [place], [place], [address] Urea nitrogen [Mass/Vol] 21 mg/dL High 4-19 [facility] Comment on above: Performed By: #### L 500.2500 #### [facility] [address] [place], [place], [address] Carbon dioxide, total [Moles /volume] in Central venous bloodOrdered By: Ynes Murry on 10-01-2024 CO2 [Moles/Vol] 25.9 mmol/L 21.0-32.0 [facility] Chloride assayOrdered By: Benedict Murry on 10-01-2024 Chloride [Moles/Vol] 100 mmol/L 98-108 [facility] GFR/1.73 sq M.predicted tay g non-blacks MDRD (S/P/Bld) [Vol rate/Area]Ordered By: Ynes Murry on 10-01-2024 Estimated GFR (MDRD) Non-Af Amer 92 >60 [facility] Comment on above: mL/min/1.73m2 CKD-EP I Creatinine Equation (2020) Glomerular filtration rate ( GFR) estimation/1.73 sq m using serum, plasma, or whole bOrdered By: Ynes Murry on 10-01-2024 GFR/1.73 sq M.predicted among non-blacks MDRD (S/P/Bld) [Vol rate/Area] 92 mL/min/{1.73_m2} >60 [facility] Comment on above: mL/min/1.73m2 CKD-EP I Creatinine Equation (2020) Internal Medicine Office Vis jaime 10-01-2024 Internal Medicine Office Visit [facility] [address] [place] [address] [place] [address] [place] [address] OFFICE VISIT Date of Service: 10/01/24 MR#: [id number] Acct: [id number] Name: RUPAL BELL Rep #: [id number] : 1975 Provider: Dr. Ynes smith MD Age/Sex: 49/F Location: [facility] Status: Signed Intake Vital Signs 04/14/24 08:14 06/20/24 07:29 10/01/24 10:21 Height 5 ft 6 in 5 ft 6 in 5 ft 6 in Weight: 207 lb 2 oz BMI 33.4 BP 132/78 H Blood Pressure Location Lt brachial Position Sitting Respiration 12 Pulse 60 Pulse Source Monitor Temp 96.7 F L Temp Source Temporal Pulse Oximetry (%) 97 Oxygen Delivery Method room air Intake Visit Reasons: 4 M FU Chief Complaint: Follow-up chronic conditions 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 Coordinator Required: No Accompanied by: Self Is patient in pain?: No Allergies No Known Allergies Allergy (Verified 10/01/24 10:18) Medications ???Medication ???Instructions ???Recorded ???Confirmed ???Type albuterol sulfate 90 mcg/actuation 2 puff inhalation Q6H PRN ASTHMA 01/11/18 10/01/24 History aerosol inhaler (ProAir HFA) levonorgestrel (Mirena) 1 insert intrauterine ONCE 8 10/01/24 History multivitamin 1 cap PO QAM 01/11/18 10/01/24 His tory cholecalciferol (vitamin D3) 50 2,000 unit PO DAILY 05/09/1810/01 History mcg (2,000 unit) capsule ascorbate calcium (vitamin C) 500 500 mg PO BID 05/20/18 10/01/24 H istory mg tablet fluticasone propionate 50 2 spray intranasal DAILY PRN 01/3110/01/24 Rx mcg/actuation nasal allergy symptoms #9.9 mL spray,suspension hydrochlorothiazide 25 mg tablet 25 mg PO DAILY #90 tabs 10/12/23 0 10/01/24 Rx rosuvastatin 10 mg tablet 10 mg PO DAILY #90 tabs 02/08/24 0 10/01/24 Rx calcium carbonate (Calcium 500) 500 mg PO QDAY 06/16/24 10/01/24 H istory lisinopril 20 mg tablet 20 mg PO DAILY #90 tabs 09/08/24 0 10/01/24 Rx Have you fallen in the past year?: No PFSH Medical History (Updated 10/01/24 @ 11:[address] 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[employer], [employer]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 No acute concerns at this time. Was seen for an acute visit in June due to bilateral lower extremity swelling. She states that this has improved and for the most part swelling is back to her baseline. Denies shortness of breath or chest tightness. History of hypertension, initial blood pressure at 132/78 and repeat was 118/70. Currently on lisinopril and hydrochlorothiazide which she is taking as prescribed. Other chronic medical conditions are stable ROS Const Constitutional: No body ache, excessive sweating, fatigue, fever(s), frequent falls, headache(s), snoring, weakness, weight change, sleep problems or change in appetite Eyes Eyes: No blurry vision, change in vision, bulging eyes, floaters, visual disturbances, eye pain or Light sensitivity ENT ENT: No abnormal hearing, ear or mastoid pain, tinnitus, balance problems, nosebleed/epistaxis, nasal congestion, headache(s), neck pain or sore throat Resp Respiratory: No cough, excessive phlegm production, pain on inspiration, shortness of breath, snoring or wheezing Cardio Cardiology: No chest pain at rest, chest pain with exertion, excessive sweating, shortness of breath, dyspnea on exertion, lightheadedness, orthopnea or palpitations Gastro GI: No abdominal pain, change in bowel habits, constipation, cramping, diarrhea, nausea/dyspepsia or vomiting (more content not included)... Normal [facility] Potassium (Unsp spec) [Mass/ Vol]Ordered By: Ynes Murry on 10-01-2024 Potassium [Moles/Vol] 4.5 mmol/L 3.3-5.1 [facility] Potassium measurement (mass/ volume)Ordered By: Ynes Murry on 10-01-2024 Potassium (Unsp spec) [Mass/Vol] 4.5 mmol/L 3.3-5.1 [facility] Serum creatinine measurement (mass/volume)Ordered By: Ynes Murry on 10-01-2024 Creatinine [Mass/Vol] 0.79 mg/dL 0.70-1.20 [facility] Serum glucose measurement (m ass/volume)Ordered By: Ynes Murry on 10-01-2024 Glucose [Mass/Vol] 97 mg/dL 70-99 [facility] Serum or plasma calcium misty urement (mass/volume)Ordered By: Ynes Murry on 10-01-2024 Calcium [Mass/Vol] 10.5 mg/dL 7.6-11.0 [facility] Serum or plasma urea nitroge n measurement (mass/volume)Ordered By: Ynes Murry on 10-01-2024 Urea nitrogen [Mass/Vol] 21 mg/dL High 4-19 [facility] Sodium levelOrdered By: Grant Murry on 10-01-2024 Sodium [Moles/Vol] 137 mmol/L 133-145 [facility] Absolute neutrophil countOrd ered By: Armani Wayt on 08-12-2024 Neutrophils (Bld) [#/Vol] 4.1 10*3/uL 2.0-7.7 [facility] Albumin to globulin ratioOrd ered By: Armani Bernard on 08-12-2024 Albumin/Globulin [Mass ratio] 0.9 {ratio} 0.9-2.4 [facility] Basophil percentageOrdered B y: Armani Bernard on 08-12-2024 Basophils/100 WBC (Bld) 0.5 % 0-1 [facility] Bilirubin, totalOrdered By: Armani Bernard on 08-12-2024 Bilirubin [Mass/Vol] 0.50 mg/dL 0.20-1.00 [facility] Comment on above: For patients on eltr ombopag therapy, use of Dimension [place] TBIL is not recommended. Blood urea nitrogen (BUN)/cr eatinine ratioOrdered By: Armani Bernard on 08-12-2024 Urea nitrogen/Creatinine [Mass ratio] 16.2 mg/mg 10-20 [facility] CBC W/Diff, Automatedon Absolute Lymph 1.88 X10 3/uL Normal 0.83-4.51 [facility] Comment on above: Performed By: #### L 100.0100, L500.4100, L500.4050, L501.9520 #### [facility] [address] [place], [address] Absolute Neut 4.1 X10 3/uL Normal 2.0-7.7 [facility] Comment on above: Performed By: #### L 100.0100, L500.4100, L500.4050, L501.9520 #### [facility] [address] [place], [address] Basophils/100 WBC (Bld) 0.5 % Normal 0-1 [facility] Comment on above: Performed By: #### L 100.0100, L500.4100, L500.4050, L501.9520 #### [facility] [address] [place], [address] Eosinophils/100 WBC (Bld) 2.7 % Normal 0-5 [facility] Comment on above: Performed By: #### L 100.0100, L500.4100, L500.4050, L501.9520 #### [facility] [address] [place], [address] Erythrocyte distribution width (RBC) [Ratio] 12.0 % Normal 11.6-14.6 [facility] Comment on above: Performed By: #### L 100.0100, L500.4100, L500.4050, L501.9520 #### [facility] [address] [place], [address] Hematocrit (Bld) [Volume fraction] 41.2 % Normal 37-47 [facility] Comment on above: Performed By: #### L 100.0100, L500.4100, L500.4050, L501.9520 #### [facility] [address] [place], [address] Hemoglobin (Bld) [Mass/Vol] 14.3 g/dL Normal 12.0-15.0 [facility] Comment on above: Performed By: #### L 100.0100, L500.4100, L500.4050, L501.9520 #### [facility] [address] [place], [address] IG% 0.500 Normal 0.0-0.9 [facility] Comment on above: Result Comment: IG% - Immature Granulocytes (promyelocytes, myelocytes and metamyelocytes) > 1% indicates that a LEFT SHIFT is Present. Performed By: #### L 100.0100, L500.4100, L500.4050, L501.9520 #### [facility] [address] [place], [address] Lymphocytes/100 WBC (Bld) 28.4 % Normal 19-41 [facility] Comment on above: Performed By: #### L 100.0100, L500.4100, L500.4050, L501.9520 #### [facility] [address] [place], [address] MCH (RBC) [Entitic mass] 31.1 pg Normal 27.0-32.0 [facility] Comment on above: Performed By: #### L 100.0100, L500.4100, L500.4050, L501.9520 #### [facility] [address] [place], [address] MCHC (RBC) [Mass/Vol] 34.7 g/dL Normal 32-36 [facility] Comment on above: Performed By: #### L 100.0100, L500.4100, L500.4050, L501.9520 #### [facility] [address] [place], [address] MCV (RBC) [Entitic vol] 89.6 fL Normal 81-99 [facility] Comment on above: Performed By: #### L 100.0100, L500.4100, L500.4050, L501.9520 #### [facility] [address] [place], [address] Monocytes/100 WBC (Bld) 6.5 % Normal 0-10 [facility] Comment on above: Performed By: #### L 100.0100, L500.4100, L500.4050, L501.9520 #### [facility] [address] [place], [address] Neutrophils/100 WBC (Bld) 61.4 % Normal 47-70 [facility] Comment on above: Performed By: #### L 100.0100, L500.4100, L500.4050, L501.9520 #### [facility] [address] [place], [address] Nucleated RBC (Bld) [#/Vol] 0 10*3/uL Normal 0-5 [facility] Comment on above: Performed By: #### L 100.0100, L500.4100, L500.4050, L501.9520 #### [facility] [address] [place], [address] Platelet mean volume (Bld) [Entitic vol] 10.5 fL Normal 6.2-12.0 [facility] Comment on above: Performed By: #### L 100.0100, L500.4100, L500.4050, L501.9520 #### [facility] [address] [place], [address] Platelets (Bld) [#/Vol] 344 10*3/uL Normal 150-450 [facility] Comment on above: Performed By: #### L 100.0100, L500.4100, L500.4050, L501.9520 #### [facility] [address] [place], [address] RBC (Bld) [#/Vol] 4.60 10*6/uL Normal 4.2-5.4 [facility] Comment on above: Performed By: #### L 100.0100, L500.4100, L500.4050, L501.9520 #### [facility] [address] [place], [address] RDW SD 39.1 fl Normal 35.1-43.9 [facility] Comment on above: Performed By: #### L 100.0100, L500.4100, L500.4050, L501.9520 #### [facility] [address] [place], [address] WBC (Bld) [#/Vol] 6.6 10*3/uL Normal 4.4-11.0 [facility] Comment on above: Performed By: #### L 100.0100, L500.4100, L500.4050, L501.9520 #### [facility] [address] [place], [address] Carbon dioxide measurementOr dered By: Armani Bernard on 08-12-2024 CO2 [Moles/Vol] 26.0 mmol/L 21.0-32.0 [facility] Chloride measurementOrdered By: Armani Bernard on 08-12-2024 Chloride [Moles/Vol] 100 mmol/L 98-107 [facility] Comprehensive Metabolic Prof ilon 08-12-2024 Albumin [Mass/Vol] 3.9 g/dL Normal 3.2-5.0 [facility] Comment on above: Performed By: #### L 100.0100, L500.4100, L500.4050, L501.9520 #### [facility] [address] [place], [address] Albumin/Globulin [Mass ratio] 0.9 {ratio} Normal 0.9-2.4 [facility] Comment on above: Performed By: #### L 100.0100, L500.4100, L500.4050, L501.9520 #### [facility] [address] [place], [address] ALK P 73 U/L Normal 45-117 [facility] Comment on above: Performed By: #### L 100.0100, L500.4100, L500.4050, L501.9520 #### [facility] [address] [place], [address] ALT [Catalytic activity/Vol] 29 U/L Normal 13-56 [facility] Comment on above: Performed By: #### L 100.0100, L500.4100, L500.4050, L501.9520 #### [facility] [address] [place], [address] AST [Catalytic activity/Vol] 17 U/L Normal 15-37 [facility] Comment on above: Performed By: #### L 100.0100, L500.4100, L500.4050, L501.9520 #### [facility] [address] [place], [address] Bilirubin [Mass/Vol] 0.50 mg/dL Normal 0.20-1.00 [facility] Comment on above: Result Comment: For patients on eltrombopag therapy, use of Dimension [place] TBIL is not recommended. Performed By: #### L 100.0100, L500.4100, L500.4050, L501.9520 #### [facility] [address] [place], [address] BUN/CRE 16.2 RATIO Normal 10-20 [facility] Comment on above: Performed By: #### L 100.0100, L500.4100, L500.4050, L501.9520 #### [facility] [address] [place], [address] CA,Total 10.4 mg/dL High 8.5-10.1 [facility] Comment on above: Performed By: #### L 100.0100, L500.4100, L500.4050, L501.9520 #### [facility] [address] [place], [address] Chloride [Moles/Vol] 100 mmol/L Normal 98-107 [facility] Comment on above: Performed By: #### L 100.0100, L500.4100, L500.4050, L501.9520 #### [facility] [address] [place], [address] CO2 [Moles/Vol] 26.0 mmol/L Normal 21.0-32.0 [facility] Comment on above: Performed By: #### L 100.0100, L500.4100, L500.4050, L501.9520 #### [facility] [address] [place], [address] Creatinine [Mass/Vol] 0.99 mg/dL Normal 0.55-1.02 [facility] Comment on above: Result Comment: The validity of the calculated GFR GFRAA in patients over 70 years has not been determined. Clinical correlation is essential. Performed By: #### L 100.0100, L500.4100, L500.4050, L501.9520 #### [facility] [address] [place], [address] EST GFR - AA 77 mL/min Normal >60 [facility] Comment on above: Result Comment: Afri can Montserratian GFR Calc Performed By: #### L 100.0100, L500.4100, L500.4050, L501.9520 #### [facility] [address] [place], [address] GAP 10 Normal 5-15 [facility] Comment on above: Performed By: #### L 100.0100, L500.4100, L500.4050, L501.9520 #### [facility] [address] [place], [address] GFR/1.73 sq M.predicted among non-blacks MDRD (S/P/Bld) [Vol rate/Area] 64 mL/min/{1.73_m2} Normal >60 [facility] Comment on above: Result Comment: Non- GFR Calc Performed By: #### L 100.0100, L500.4100, L500.4050, L501.9520 #### [facility] [address] [place], [address] Globulin (S) [Mass/Vol] 4.5 g/dL High 2.2-4.2 [facility] Comment on above: Performed By: #### L 100.0100, L500.4100, L500.4050, L501.9520 #### [facility] [address] [place], [address] Glucose [Mass/Vol] 99 mg/dL Normal 74-106 [facility] Comment on above: Performed By: #### L 100.0100, L500.4100, L500.4050, L501.9520 #### [facility] [address] [place], [address] Potassium [Moles/Vol] 3.2 mmol/L Low 3.5-5.1 [facility] Comment on above: Performed By: #### L 100.0100, L500.4100, L500.4050, L501.9520 #### [facility] [address] [place], [address] Sodium [Moles/Vol] 136 mmol/L Normal 136-145 [facility] Comment on above: Performed By: #### L 100.0100, L500.4100, L500.4050, L501.9520 #### [facility] [address] [place], [address] T PROT 8.4 g/dL High 6.4-8.2 [facility] Comment on above: Performed By: #### L 100.0100, L500.4100, L500.4050, L501.9520 #### [facility] [address] [place], [address] Urea nitrogen [Mass/Vol] 16 mg/dL Normal 7-18 [facility] Comment on above: Performed By: #### L 100.0100, L500.4100, L500.4050, L501.9520 #### [facility] [address] [place], [address] Eosinophil percentageOrdered By: Armani Bernard on 08-12-2024 Eosinophils/100 WBC (Bld) 2.7 % 0-5 [facility] Erythrocyte distribution wid th ratioOrdered By: Armani Bernard on 08-12-2024 Erythrocyte distribution width (RBC) [Ratio] 12.0 % 11.6-14.6 [facility] Erythrocyte distribution wid th standard deviationOrdered By: Armani Bernard on 08-12-2024 Erythrocyte distribution width (RBC) [Entitic vol] 39.1 fL 35.1-43.9 [facility] Estimated glomerular filtrat ion rate (GFR) AmericanOrdered By: Armani Bernard on 08-12-2024 Estimated GFR (MDRD) Amer 77 mL/min >60 [facility] Comment on above: GFR Calc Glomerular filtration rate ( GFR) estimationOrdered By: Armani Bernard on 08-12-2024 Estimated GFR (MDRD) Non-Af Amer 64 mL/min >60 [facility] Comment on above: Non- GFR Calc Glucose measurementOrdered B y: Armani Bernard on 08-12-2024 Glucose [Mass/Vol] 99 mg/dL 74-106 [facility] Hematocrit Auto (Bld) [Volum e fraction]Ordered By: Armani Bernard on 08-12-2024 Hematocrit (Bld) [Volume fraction] 41.2 % 37-47 [facility] Hemoglobin measurementOrdere d By: Armani Bernard on 08-12-2024 Hemoglobin (Bld) [Mass/Vol] 14.3 g/dL 12.0-15.0 [facility] High density lipoprotein (HD L) measurementOrdered By: Armani Bernard on 08-12-2024 Cholesterol in HDL [Mass/Vol] 46 mg/dL >40 [facility] Comment on above: The drugs N-Acetylcy steine and Metamizole may falsely depress this assay. Reference Range HDL <40 mg/dL Low HDL Cholesterol HDL >or= 60 mg/dL High HDL Cholesterol Immature granulocytes/100 WB C Auto (Bld)Ordered By: Armani Bernard on 08-12-2024 Immature granulocytes/100 WBC (Bld) 0.500 % 0.0-0.9 [facility] Comment on above: IG% - Immature Granu locytes (promyelocytes, myelocytes and metamyelocytes) > 1% indicates that a LEFT SHIFT is Present. Laboratory - Chemistry and C hemistry - challengeOrdered By: Armani Bernard on 08-12-2024 AST [Catalytic activity/Vol] 17 U/L 15-37 [facility] Lipid Profileon 08-12-2024 Cholesterol [Mass/Vol] 133 mg/dL Normal 200 [facility] Comment on above: Result Comment: <200 mg/dL Desirable 200-240 mg/dL Borderline >240 mg/dL High Risk Performed By: #### L 100.0100, L500.4100, L500.4050, L501.9520 ####[facility] [address] [place], [address] Cholesterol in HDL [Mass/Vol] 46 mg/dL Normal [facility] Comment on above: Result Comment: The drugs N-Acetylcysteine and Metamizole may falsely depress this assay. Reference Range HDL <40 mg/dL Low HDL Cholesterol HDL >or= 60 mg/dL High HDL Cholesterol Performed By: #### L 100.0100, L500.4100, L500.4050, L501.9520 ####[facility] [address] [place], [address] Cholesterol in LDL [Mass/Vol] 68 mg/dL Normal 0-130 [facility] Comment on above: Performed By: #### L 100.0100, L500.4100, L500.4050, L501.9520 ####[facility] [address] [place], [address] Cholesterol in VLDL [Mass/Vol] 19 mg/dL Normal 5-40 [facility] Comment on above: Performed By: #### L 100.0100, L500.4100, L500.4050, L501.9520 ####[facility] [address] [place], [address] Triglyceride [Mass/Vol] 95 mg/dL Normal [facility] Comment on above: Result Comment: The drugs N-Acetylcysteine and Metamizole may falsely depress this assay. Serum Triglycerides Reference Interval Normal <150 mg/dL Borderline high 150 - 199 mg/dL High 200 - 499 mg/dL Very High > or = 500 mg/dL Performed By: #### L 100.0100, L500.4100, L500.4050, L501.9526 ####[facility] [address] [place], [address] Low density lipoprotein (LDL ) cholesterol measurementOrdered By: Armani Bernard on 08-12-2024 Cholesterol in LDL [Mass/Vol] 68 mg/dL 0-130 [facility] Lymphocytes Auto (Unsp spec) [#/Vol]Ordered By: Armani Bernard on 08-12-2024 Lymphocytes (Bld) [#/Vol] 1.88 10*3/uL 0.83-4.51 [facility] Lymphocytes/100 WBC Auto (Un sp spec)Ordered By: Armani Bernard on 08-12-2024 Lymphocytes/100 WBC (Bld) 28.4 % 19-41 [facility] MCV (mean corpuscular volume ) determinationOrdered By: Armani Bernard on 08-12-2024 MCV (RBC) [Entitic vol] 89.6 fL 81-99 [facility] Mean corpuscular hemoglobin (MCH) determinationOrdered By: Armani Bernard on 08-12-2024 MCH (RBC) [Entitic mass] 31.1 pg 27.0-32.0 [facility] Mean corpuscular hemoglobin concentration (MCHC) determinationOrdered By: Armani Bernard on 08-12-2024 MCHC (RBC) [Mass/Vol] 34.7 g/dL 32-36 [facility] Mean platelet volume determi nationOrdered By: Armani Bernard on 08-12-2024 Platelet mean volume (Bld) [Entitic vol] 10.5 fL 6.2-12.0 [facility] Monocyte percentageOrdered B y: Armani Bernard on 08-12-2024 Monocytes/100 WBC (Bld) 6.5 % 0-10 [facility] Neutrophil percentageOrdered By: Armani Bernard on 08-12-2024 Neutrophils/100 WBC (Bld) 61.4 % 47-70 [facility] Nucleated red blood cell per centageOrdered By: Armani Bernard on 08-12-2024 Nucleated RBC/100 WBC (Bld) [Ratio] 0 % 0-5 [facility] Platelet countOrdered By: Gabby ttrola Bernard on 08-12-2024 Platelets (Bld) [#/Vol] 344 10*3/uL 150-450 [facility] Potassium measurementOrdered By: Armani Bernard on 08-12-2024 Potassium [Moles/Vol] 3.2 mmol/L Low 3.5-5.1 [facility] RBC Auto (Bld) [#/Vol]Ordere d By: Armani Bernard on 08-12-2024 RBC (Bld) [#/Vol] 4.60 10*6/uL 4.2-5.4 [facility] Serum anion gap measurementO rdered By: Armani Bernard on 08-12-2024 Anion gap [Moles/Vol] 10 mmol/L 5-15 [facility] Serum globulin measurementOr dered By: Armani Bernard on 08-12-2024 Globulin (S) [Mass/Vol] 4.5 g/dL High 2.2-4.2 [facility] Serum or plasma alanine meyer otransferase (ALT) measurementOrdered By: Armani Bernard on 08-12-2024 ALT [Catalytic activity/Vol] 29 U/L 13-56 [facility] Serum or plasma albumin misty urement (mass/volume)Ordered By: Armani Bernard on 08-12-2024 Albumin [Mass/Vol] 3.9 g/dL 3.2-5.0 [facility] Serum or plasma alkaline stefano sphatase measurementOrdered By: Armani Bernard on 08-12-2024 ALP [Catalytic activity/Vol] 73 U/L 45-117 [facility] Serum or plasma calcium misty urement (mass/volume)Ordered By: Armani Bernard on 08-12-2024 Calcium [Mass/Vol] 10.4 mg/dL High 8.5-10.1 [facility] Serum or plasma cholesterol measurement (mass/volume)Ordered By: Armani Bernard on 08-12-2024 Cholesterol [Mass/Vol] 133 mg/dL <200 [facility] Comment on above: <200 mg/dL Desirable 200-240 mg/dL Borderline >240 mg/dL High Risk Serum or plasma creatinine m easurement (mass/volume)Ordered By: Armani Bernard on 08-12-2024 Creatinine [Mass/Vol] 0.99 mg/dL 0.55-1.02 [facility] Comment on above: The validity of the calculated GFR & GFRAA in patients over 70 years has not been determined. Clinical correlation is essential. Serum or plasma urea nitroge n measurement (mass/volume)Ordered By: Armani Bernard on 08-12-2024 Urea nitrogen [Mass/Vol] 16 mg/dL 7-18 [facility] Sodium levelOrdered By: Polo Bernard on 08-12-2024 Sodium [Moles/Vol] 136 mmol/L 136-145 [facility] TSH QnOrdered By: Armani garrett on 08-12-2024 Thyroid Stimulating Hormone (TSH) 2.520 uIU/mL 0.358-3.740 [facility] Thyroid Stim Hormone (TSH)on 08-12-2024 TSH 2.520 uIU/mL Normal 0.358-3.740 [facility] Comment on above: Performed By: #### L 100.0100, L500.4100, L500.4050, L501.9520 ####[facility] [address] [place], [place], [id number] Total proteinOrdered By: Yosef Bernard on 08-12-2024 Protein [Mass/Vol] 8.4 g/dL High 6.4-8.2 [facility] Triglycerides measurementOrd ered By: Armani Bernard on 08-12-2024 Triglyceride [Mass/Vol] 95 mg/dL <199 [facility] Comment on above: The drugs N-Acetylcy steine and Metamizole may falsely depress this assay.Serum Triglycerides Reference Interval Normal <150 mg/dL Borderline high 150 - 199 mg/dL High 200 - 499 mg/dL Very High > or = 500 mg/dL Very low density lipoprotein (VLDL) cholesterol measurementOrdered By: Armani Bernard on 08-12-2024 VLDL Cholesterol 19 mg/dL 5-40 [facility] White blood cell (WBC) count Ordered By: Armani Bernard on 08-12-2024 WBC (Bld) [#/Vol] 6.6 10*3/uL 4.4-11.0 [facility] Internal Medicine Office Vis iton 06-20-2024 Internal Medicine Office Visit [facility] [address] [place] [address] [place] [address] OFFICE VISIT Date of Service: 06/20/24 MR#: [id number] Acct: [id number] Name: RUPAL BELL Rep #: [id number] : 1975 Provider: ANKUR Perez Age/Sex: 49/F Location: [facility] [place] Status: Signed Intake Vital Signs 04/14/24 08:14 06/16/24 08:14 06/20/24 07:29 Height 5 ft 6 in 5 ft 6 in 5 ft 6 in Weight: 203 lb 202 lb 206 lb BMI 32.8 32.5 33.2 BP 120/74 128/81 H 118/68 Blood Pressure Location Lt brachial Lt brachial Position Sitting Sitting Respiration 14 16 Pulse 63 70 Pulse Source Monitor Monitor Temp 99.9 F H 97.6 F L Temp Source Temporal Temporal Pulse Oximetry (%) 99 97 Oxygen Delivery Method room air room air Intake Visit Reasons: SWOLLEN ANKLES Chief Complaint: swollen ankles 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 Coordinator Required: No Accompanied by: Self Is patient in pain?: No Allergies No Known Allergies Allergy (Verified 06/20/24 07:26) Medications ???Medication ???Instructions ???Recorded ???Confirmed ???Type albuterol sulfate 90 mcg/actuation 2 puff inhalation Q6H PRN ASTHMA 01/11/18 06/20/24 History aerosol inhaler (ProAir HFA) levonorgestrel (Mirena) 1 insert intrauterine ONCE 01/11/18 06/20/24 History multivitamin 1 cap PO QAM 01/11/18 06/20/24 History cholecalciferol (vitamin D3) 50 2,000 unit PO DAILY 05/09/18 06/20/24 History mcg (2,000 unit) capsule ascorbate calcium (vitamin C) 500 500 mg PO BID 05/20/18 06/20/24 History mg tablet fluticasone propionate 50 2 spray intranasal DAILY PRN 01/31/21 06/20/24 Rx mcg/actuation nasal allergy symptoms #9.9 mL spray,suspension hydrochlorothiazide 25 mg tablet 25 mg PO DAILY #90 tabs 10/12/23 06/20/24 Rx lisinopril 20 mg tablet 20 mg PO DAILY #90 tabs 01/03/24 06/20/24 Rx rosuvastatin 10 mg tablet 10 mg PO DAILY #90 tabs 02/08/24 06/20/24 Rx calcium carbonate (Calcium 500) 500 mg PO QDAY 06/16/24 06/20/24 History PFSH Medical History Flu vaccine need Health care maintenance Hypertension Hyperlipidemia Right hip pain Non-smoker Colon cancer screening Hypertension BP (high blood pressure) Thyroid nodule Umbilical hernia Seasonal allergies Asthma Surgical History H/O dilation and curettage ( 2010) Family History Father Asthma Hyperlipemia Parkinson disease Mother Hypertension Cancer Sub tissue carcoma Grandfather Myocardial infarction, Onset Age: 55 Son Asthma Social History adopted: No household members: family housing: house number of children: 2 current occupational status: employed current occupation: [employer], [place] right now pets and animals: No history of recent travel: No Smoking Status: Never smoker second hand exposure: No alcohol intake: current alcohol intake frequency: a few times a week details: social substance use type: does not use caffeine: Yes what type of physical activity do you participate in: none and walking seatbelt use: always do you feel safe at home: Yes additional social history: - [facility] HPI Chief Complaint: swollen ankles Details: RUPAL BELL, is a 49 F who presents to the office today for some intermittent swelling int he ankles. She states that she started to notice some swelling in both of her ankles (only the ankles and not any higher) the week before and the week of . She states that she did not notice swelling in the mornings but by the end of the day she noticed the swelling. She state that it was a moderate amt of swelling. She states that she would elevate them and then go to bed and by the next day the swelling was down. She did not travel over the holidays. She does state that her BPs were a little elevated Thanksgi week but not bad. She states that it lasted maybe 2 weeks at most and then resolved and has not returned. She does not drink a lot of water. She does not use nicotine She does drink a glass of wine a day She states that her diet is fair. She doesn't think that she eats a lot of salt She does note get regular exercise ROS Const Constitutional: No body ache, chills, excessive sweating, fatigue, fever(s), frequent falls, headache(s), snoring, weakness or change in appetite Eyes Eyes: No blurry vision, change in vision, eye pain or Light sensitivity ENT ENT: No abnormal hearing, ear or mastoid pain, tinnitus, nasal congestion, headache(s), neck pain or sore throat Resp Respiratory: No cough, shortness of breath, snoring or wheezing Cardio Cardiology: No chest pain at rest, chest pain with exertion, excessive sweating, dyspnea on exert (more content not included)... Normal [facility] Loan Manager Office Visit Reporton 06-16-2024 Loan Manager Office Visit Report [facility] [address], [address] [place] [address] OFFICE VISIT Date of Service: 06/16/24 MR#: [id number] Acct: [id number] Name: RUPAL BELL Rep #: [id number] : 1975 Provider: Dr. Sudha matos MD Age/Sex: 49/F Location: [facility] [place] Status: Signed Intake Vital Signs 06/07/23 08:11 04/14/24 08:14 06/16/24 08:14 Height 5 ft 6 in 5 ft 6 in 5 ft 6 in Weight: 202 lb BMI 32.5 BP 128/81 H Intake Visit Reasons: 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) 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 Coordinator Required: No Is patient in pain?: No Feel stressed/tense/nervou s/anxious/difficulty sleeping: to some extent (new normal for patient) Allergies No Known Allergies Allergy (Verified 06/16/24 08:15) Medications ???Medication ???Instructions ???Recorded ???Confirmed ???Type albuterol sulfate 90 mcg/actuation 2 puff inhalation Q6H PRN ASTHMA 01/11/18 06/16/24 History aerosol inhaler (ProAir HFA) levonorgestrel (Mirena) 1 insert intrauterine ONCE 01/11/18 06/16/24 History multivitamin 1 cap PO QAM 01/11/18 06/16/24 History cholecalciferol (vitamin D3) 50 2,000 unit PO DAILY 05/09/18 06/16/24 History mcg (2,000 unit) capsule ascorbate calcium (vitamin C) 500 500 mg PO BID 05/20/18 06/16/24 History mg tablet fluticasone propionate 50 2 spray intranasal DAILY PRN 01/31/21 06/16/24 Rx mcg/actuation nasal allergy symptoms #9.9 mL spray,suspension hydrochlorothiazide 25 mg tablet 25 mg PO DAILY #90 tabs 10/12/23 06/16/24 Rx lisinopril 20 mg tablet 20 mg PO DAILY #90 tabs 01/03/24 06/16/24 Rx rosuvastatin 10 mg tablet 10 mg PO DAILY #90 tabs 02/08/24 06/16/24 Rx calcium carbonate (Calcium 500) 500 mg PO QDAY 06/16/24 06/16/24 History Is last menstrual period known: No Post menopausal: No Patient : No : No PFSH Medical History Flu vaccine need Health care maintenance Hypertension Hyperlipidemia Right hip pain Non-smoker Colon cancer screening Hypertension BP (high blood pressure) Thyroid nodule Umbilical hernia Seasonal allergies Asthma Surgical History H/O dilation and curettage ( 2010) Family History Father Asthma Hyperlipemia Parkinson disease Mother Hypertension Cancer Sub tissue carcoma Grandfather Myocardial infarction, Onset Age: 55 Son Asthma Social History adopted: No household members: family housing: house number of children: 2 current occupational status: employed 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 Last PAP: 06/07/2023 - normal History of abnormal PAP: Last mammogram: 06/02/2024 - normal History of abnormal mammogram: Colon cancer screenin07/05/2021 - colonoscopy Other preventative health care screenings: PCP is Dr. Murry - PCP monitors routine labs Female Reproductive History Questions: metorrhagia: No, sexually active: Yes, dyspareunia: No and PCB: No Menopausal Symptoms: No hot flashes, No night sweats, No weight change, No mood changes, No difficulty concentrating, No sleep problems and No change in libido ROS Const Constitutional: Reports as per HPI; Denies fatigue, increased appetite, poor appetite, night sweats, weight gain or weight loss Cardio Card: Denies chest pain Resp Resp: Denies cough or dyspnea GI GI: Reports as per HPI; Denies abdominal pain, bloating, constipation, nausea or vomiting : Reports as per HPI and other; Denies difficulty voiding, dysuria, hematuria, hot flashes, nipple discharge, pelvic pain, prolapse symptoms, urinary frequency, urinary incontinence, urinary urgency, vaginal discharge, vaginal dryness, vaginal odor or vaginal pruritus Skin Skin/Breast: Denies changing lesions, breast mass, breast pain, breast sk (more content not included)... Normal [facility] SCRN MAMM (CAD)W/AJIT flores 06-02-2024 SCRN MAMM (CAD)W/AJIT [facility] [address], [place] [id number] SCRN MAMM (CAD)W/AJIT [facility] MR#: [id number] Acct: [id number] Name: RUPAL BELL Rep #: [id number] : 1975 F 49 From: Dandy Kern MD PCP: Dr. Ynes Murry MD Status: REG CLI Study: SCRN MAMM (CAD)W/AJIT BILAT Date of Exam: 05/10 11/29 Exam# [id number] Ordering Dr: Sudha Sutton [id number] MAMMOGRAPHY - BILATERAL SCREENING 3-D TOMOSYNTHESIS REASON FOR EXAM: Female, 49 years old. breast cancer screening PERTINENT HISTORY: No significant family history. TECHNIQUE: 2-D mammograms and 3-D Tomosynthesis of the breast (s) were performed. CAD was performed. COMPARISON: 06/01/2023 FINDINGS: The breast composition is heterogeneously dense that can obscure small breast masses. Scattered benign calcifications are seen. No dense spiculated masses or suspicious microcalcifications are identified. No architectural distortion is identified. There is no skin thickening or retraction. There has been no significant change since the prior study. BI/SCRN MAMM (CAD)W/AJIT BILAT IMPRESSION: No mammographic signs of malignancy. Routine yearly mammograms recommended. ASSESSMENT CATEGORY: BIRADS Category 1: Negative. A letter regarding these results will be sent to the patient by the facility within 30 days. FOLLOW UP RECOMMENDATION: Yearly follow up mammogram recommended. (A) Approximately 10% of breast cancers are not detected by mammography. A normal mammogram should not delay biopsy of a clinically suspicious abnormality. Electronically Signed: Dandy Kern MD at 9:10 EST , CC: Dr. Ynes Murry MD; Dr. Sudha Sutton MD Colorer Hides And Skins: Signed Normal [facility] Absolute lymphocyte countOrd ered By: Ynes Murry on 10-06-2023 Lymphocytes Auto (Unsp spec) [#/Vol] 2.13 10*3/uL 0.83-4.51 [facility] Automated lymphocyte count a s percentage of total leukocytesOrdered By: Ynes Murry on 10-06-2023 Lymphocytes/100 WBC Auto (Unsp spec) 26.4 % 19-41 [facility] Basophil percentageOrdered B y: Ynes Murry on 10-06-2023 Basophils/100 WBC (Bld) 0.6 % 0-1 [facility] Chloride [Moles/Vol] 106 mmol/L 98-107 [facility] Eosinophils/100 WBC (Bld) 3.1 % 0-5 [facility] Glucose [Mass/Vol] 101 mg/dL 74-106 [facility] Comment on above: Fasting Glucose resu lt from 100 to 125 mg/dL suggests IMPAIRED HOMEOSTASIS per A.D.A. criteria. Hemoglobin (Bld) [Mass/Vol] 12.9 g/dL 12.0-15.0 [facility] Monocytes/100 WBC (Bld) 7.3 % 0-10 [facility] Neutrophils (Bld) [#/Vol] 5.0 10*3/uL 2.0-7.7 [facility] Neutrophils/100 WBC (Bld) 62.4 % 47-70 [facility] Potassium [Moles/Vol] 3.6 mmol/L 3.5-5.1 [facility] Sodium [Moles/Vol] 140 mmol/L 136-145 [facility] WBC (Bld) [#/Vol] 8.1 10*3/uL 4.4-11.0 [facility] Determination of erythrocyte mean corpuscular volume (MCV)Ordered By: Ynes Murry on 10-06-2023 MCV (RBC) [Entitic vol] 92.8 fL 81-99 [facility] Erythrocyte distribution wid th ratioOrdered By: [facility] Jeanmarie on 10-06-2023 Erythrocyte distribution width (RBC) [Ratio] 12.5 % 11.6-14.6 [facility] Erythrocyte distribution wid th standard deviationOrdered By: alfredspearsvillejeffry Murry on 10-06-2023 Erythrocyte distribution width (RBC) [Entitic vol] 42.8 fL 35.1-43.9 [facility] Hematocrit Auto (Bld) [Volum e fraction]Ordered By: Ynes Murry on 10-06-2023 Hematocrit (Bld) [Volume fraction] 38.8 % 37-47 [facility] Immature granulocytes/100 WB C Auto (Bld)Ordered By: Ynes Murry on 10-06-2023 Immature granulocytes/100 WBC (Bld) 0.200 % 0.0-0.9 [facility] Comment on above: IG% - Immature Granu locytes (promyelocytes, myelocytes and metamyelocytes) > 1% indicates that a LEFT SHIFT is Present. Laboratory - Chemistry and C hemistry - challengeOrdered By: Ynes Murry on 10-06-2023 CO2 [Moles/Vol] 30.0 mmol/L 21.0-32.0 [facility] Urea nitrogen/Creatinine [Mass ratio] 24.9 mg/mg 10-20 [facility] Laboratory - Hematology and Cell countsOrdered By: Ynes Murry on 10-06-2023 MCH (RBC) [Entitic mass] 30.9 pg 27.0-32.0 [facility] MCHC (RBC) [Mass/Vol] 33.2 g/dL 32-36 [facility] Nucleated RBC/100 WBC (Bld) [Ratio] 0 % 0-5 [facility] Platelet mean volume (Bld) [Entitic vol] 10.5 fL 6.2-12.0 [facility] Platelets (Bld) [#/Vol] 328 10*3/uL 150-450 [facility] No Panel InformationOrdered By: Ynes Murry on 10-06-2023 Estimated GFR (MDRD) Amer 93 mL/min >60 [facility] Comment on above: GFR Calc Estimated GFR (MDRD) Non-Af Amer 77 mL/min >60 [facility] Comment on above: Non- GFR Calc RBC Auto (Bld) [#/Vol]Ordere d By: Ynes Murry on 10-06-2023 RBC (Bld) [#/Vol] 4.18 10*6/uL 4.2-5.4 [facility] Serum or plasma calcium misty urement (mass/volume)Ordered By: Ynes Murry on 10-06-2023 Calcium [Mass/Vol] 9.5 mg/dL 8.5-10.1 [facility] Serum or plasma creatinine m easurement (mass/volume)Ordered By: Ynes Murry on 10-06-2023 Creatinine [Mass/Vol] 0.84 mg/dL 0.55-1.02 [facility] Comment on above: The validity of the calculated GFR & GFRAA in patients over 70 years has not been determined. Clinical correlation is essential. Serum or plasma urea nitroge n measurement (mass/volume)Ordered By: Ynes Murry on 10-06-2023 Urea nitrogen [Mass/Vol] 21 mg/dL 7-18 [facility] Thin prep Papanicolaou smear with manual screeningOrdered By: Ynes Murry on 10-06-2023 Thin prep Papanicolaou smear with manual screening 4 5-15 [facility] Cervical or vagninal specime n microscopic examination by cytology stain (reported asOrdered By: Sudha Sutton on 06-07-2023 Cytology report Cyto stain Doc (Cvx/Vag) Comment . [facility] Comment on above: The Pap smear is a s creening test designed to aid in thedetection of premalignant and malignant conditions of theuterine cervix. It is not a diagnostic procedure andshould not be used as the sole means of detecting cervicalcancer. Both false-positive and false-negative reports dooccur. Detection in cervical specim en of any of human papilloma virus (HPV) 16, 18, 31, 33,Ordered By: Sudha Sutton on 06-07-2023 HPV 16+18+31+33+35+39+45+51 +52+56+58+59+66+68 DNA Probe+sig amp Ql (Cvx) Negative Negative [facility] Comment on above: This nucleic acid am plification test detects fourteen high-risk HPV types (16,18,31,33,35,39,45,51,52,56,58,59,66,68)without differentiation. Laboratory - CytologyOrdered By: Sudha Sutton on 06-07-2023 Aircraft Systems Repairer Cyto stain Nom (Cvx/Vag) [ID] Comment . [facility] Comment on above: Karina Raines, Cyto technologist (ASCP) Laboratory - Miscellaneous t estsOrdered By: Sudha Sutton on 06-07-2023 Service comment (Unsp spec) [Interp] Comment . [facility] Comment on above: This liquid based Th inPrep(R) pap test was screened withthe use of an image guided system. Service comment (Unsp spec) [Interp] . . [facility] Liquid-based cerv Pap + CT/G C by E[facility] w reflex to high-risk HPV for ASCUSOrdered By: Sudha Sutton on 06-07-2023 Cytology report Cyto stain.thin prep Doc (Cvx/Vag) Comment . [facility] Comment on above: Criteria not met, HP V Genotype not performed.Performed at: [facility] [id number] Director: Vickie Cruz MD, Phone: [phone] at: =[place] - [facility] [id number] Director: Vickie Cruz MD, Phone: [phone] No Panel InformationOrdered By: Sudha Sutton on 06-07-2023 Pathology report final diagnosis Narrative Comment . [facility] Comment on above: NEGATIVE FOR INTRAEP ITHELIAL LESION OR MALIGNANCY. Basophil percentageOrdered B y: Ynes Murry on 04-04-2023 Bilirubin [Mass/Vol] 0.50 mg/dL 0.20-1.00 [facility] Comment on above: For patients on eltr ombopag therapy, use of Dim[place] TBIL is not recommended. Chloride [Moles/Vol] 103 mmol/L 98-107 [facility] Cholesterol [Mass/Vol] 122 mg/dL <200 [facility] Comment on above: <200 mg/dL Desirable 200-240 mg/dL Borderline >240 mg/dL High Risk Glucose [Mass/Vol] 96 mg/dL 74-106 [facility] Potassium [Moles/Vol] 3.5 mmol/L 3.5-5.1 [facility] Protein [Mass/Vol] 7.8 g/dL 6.4-8.2 [facility] Sodium [Moles/Vol] 137 mmol/L 136-145 [facility] Triglyceride [Mass/Vol] 91 mg/dL <199 [facility] Comment on above: The drugs N-Acetylcy steine and Metamizole may falsely depress this assay.Serum Triglycerides Reference Interval Normal <150 mg/dL Borderline high 150 - 199 mg/dL High 200 - 499 mg/dL Very High > or = 500 mg/dL Laboratory - Chemistry and C hemistry - challengeOrdered By: Ynes Murry on 04-04-2023 ALP [Catalytic activity/Vol] 66 U/L 45-117 [facility] ALT [Catalytic activity/Vol] 29 U/L 13-56 [facility] CO2 [Moles/Vol] 29.0 mmol/L 21.0-32.0 [facility] Globulin (S) [Mass/Vol] 4.0 g/dL 2.2-4.2 [facility] Urea nitrogen/Creatinine [Mass ratio] 16.5 mg/mg 10-20 [facility] No Panel InformationOrdered By: Ynes Murry on 04-04-2023 Estimated GFR (MDRD) Amer 85 mL/min >60 [facility] Comment on above: GFR Calc Estimated GFR (MDRD) Non-Af Amer 71 mL/min >60 [facility] Comment on above: Non- GFR Calc Serum or plasma albumin misty urement (mass/volume)Ordered By: Ynes Murry on 04-04-2023 Albumin [Mass/Vol] 3.8 g/dL 3.2-5.0 [facility] Serum or plasma albumin/glob ulin mass ratioOrdered By: Ynes Murry on 04-04-2023 Albumin/Globulin [Mass ratio] 1.0 {ratio} 0.9-2.4 [facility] Serum or plasma calcium misty urement (mass/volume)Ordered By: Ynes Murry on 04-04-2023 Calcium [Mass/Vol] 10.0 mg/dL 8.5-10.1 [facility] Serum or plasma cholesterol in HDL measurement (mass/volume)Ordered By: Ynes Murry on 04-04-2023 Cholesterol in HDL [Mass/Vol] 45 mg/dL >40 [facility] Comment on above: The drugs N-Acetylcy steine and Metamizole may falsely depress this assay. Reference Range HDL <40 mg/dL Low HDL Cholesterol HDL >or= 60 mg/dL High HDL Cholesterol Serum or plasma cholesterol in VLDL measurement (mass/volume)Ordered By: Ynes Murry on 04-04-2023 Cholesterol in VLDL [Mass/Vol] 18 mg/dL 5-40 [facility] Serum or plasma creatinine m easurement (mass/volume)Ordered By: Ynes Murry on 04-04-2023 Creatinine [Mass/Vol] 0.91 mg/dL 0.55-1.02 [facility] Comment on above: The validity of the calculated GFR & GFRAA in patients over 70 years has not been determined. Clinical correlation is essential. Serum or plasma low density lipoprotein (LDL) cholesterol measurement (mass/volume)Ordered By: Ynes Murry on 04-04-2023 Cholesterol in LDL [Mass/Vol] 59 mg/dL 0-130 [facility] Serum or plasma urea nitroge n measurement (mass/volume)Ordered By: Ynes Murry on 04-04-2023 Urea nitrogen [Mass/Vol] 15 mg/dL 7-18 [facility] Thin prep Papanicolaou smear with manual screeningOrdered By: Ynes Murry on 04-04-2023 Thin prep Papanicolaou smear with manual screening 12 U/L 15-37 [facility] Thin prep Papanicolaou smear with manual screening 5 5-15 [facility] Absolute lymphocyte countOrd ered By: Dr. Murry on 10-06-2022 Lymphocytes Auto (Unsp spec) [#/Vol] 1.65 10*3/uL 0.83-4.51 [facility] Basophil percentageOrdered B y: Dr. Murry on 10-06-2022 Basophils/100 WBC (Bld) 0.6 % 0-1 [facility] Chloride [Moles/Vol] 103 mmol/L 98-107 [facility] Eosinophils/100 WBC (Bld) 3.4 % 0-5 [facility] Glucose [Mass/Vol] 98 mg/dL 74-106 [facility] Neutrophils (Bld) [#/Vol] 4.3 10*3/uL 2.0-7.7 [facility] Neutrophils/100 WBC (Bld) 63.5 % 47-70 [facility] Potassium [Moles/Vol] 3.5 mmol/L 3.5-5.1 [facility] Sodium [Moles/Vol] 138 mmol/L 136-145 [facility] WBC (Bld) [#/Vol] 6.8 10*3/uL 4.4-11.0 [facility] Blood erythrocytes count (nu mber/volume)Ordered By: Dr. Murry on 10-06-2022 RBC (Bld) [#/Vol] 4.31 10*6/uL 4.2-5.4 [facility] Blood hemoglobin measurement (mass/volume)Ordered By: Dr. Murry on 10-06-2022 Hemoglobin (Bld) [Mass/Vol] 13.4 g/dL 12.0-15.0 [facility] Blood lymphocytes/100 leukoc ytesOrdered By: Dr. Murry on 10-06-2022 Lymphocytes/100 WBC (Bld) 24.4 % 19-41 [facility] Blood monocytes/100 leukocyt esOrdered By: Dr. Murry on 10-06-2022 Monocytes/100 WBC (Bld) 8.0 % 0-10 [facility] Blood platelet mean volumeOr dered By: Dr. Murry on 10-06-2022 Platelet mean volume (Bld) [Entitic vol] 10.5 fL 6.2-12.0 [facility] Determination of erythrocyte mean corpuscular volume (MCV)Ordered By: Dr. Murry on 10-06-2022 MCV (RBC) [Entitic vol] 93.3 fL 81-99 [facility] Hematocrit Auto (Bld) [Volum e fraction]Ordered By: Dr. Murry on 10-06-2022 Hematocrit (Bld) [Volume fraction] 40.2 % 37-47 [facility] Laboratory - Chemistry and C hemistry - challengeOrdered By: Dr. Murry on 10-06-2022 CO2 [Moles/Vol] 28.0 mmol/L 21.0-32.0 [facility] Urea nitrogen/Creatinine [Mass ratio] 20.7 mg/mg 10-20 [facility] Laboratory - Hematology and Cell countsOrdered By: Dr. Murry on 10-06-2022 Erythrocyte distribution width (RBC) [Entitic vol] 43.3 fL 35.1-43.9 [facility] Erythrocyte distribution width (RBC) [Ratio] 12.6 % 11.6-14.6 [facility] Immature granulocytes/100 WBC (Bld) 0.100 % 0.0-0.9 [facility] Comment on above: IG% - Immature Granu locytes (promyelocytes, myelocytes and metamyelocytes) > 1% indicates that a LEFT SHIFT is Present. MCH (RBC) [Entitic mass] 31.1 pg 27.0-32.0 [facility] Nucleated RBC/100 WBC (Bld) [Ratio] 0 % 0-5 [facility] MCHC Auto (RBC) [Mass/Vol]Or dered By: Dr. Murry on 10-06-2022 MCHC (RBC) [Mass/Vol] 33.3 g/dL 32-36 [facility] No Panel InformationOrdered By: Dr. Murry on 10-06-2022 Estimated GFR (MDRD) Amer 85 mL/min >60 [facility] Comment on above: GFR Calc Estimated GFR (MDRD) Non-Af Amer 70 mL/min >60 [facility] Comment on above: Non- GFR Calc Platelets bldOrdered By: Dr. Murry on 10-06-2022 Platelets (Bld) [#/Vol] 277 10*3/uL 150-450 [facility] Serum or plasma calcium misty urement (mass/volume)Ordered By: Dr. Murry on 10-06-2022 Calcium [Mass/Vol] 9.5 mg/dL 8.5-10.1 [facility] Serum or plasma creatinine m easurement (mass/volume)Ordered By: Dr. Murry on 10-06-2022 Creatinine [Mass/Vol] 0.92 mg/dL 0.55-1.02 [facility] Comment on above: The validity of the calculated GFR & GFRAA in patients over 70 years has not been determined. Clinical correlation is essential. Serum or plasma urea nitroge n measurement (mass/volume)Ordered By: Dr. Murry on 10-06-2022 Urea nitrogen [Mass/Vol] 19 mg/dL 7-18 [facility] Thin prep Papanicolaou smear with manual screeningOrdered By: Dr. Murry on 10-06-2022 Thin prep Papanicolaou smear with manual screening 7 5-15 [facility] Basophil percentageOrdered B y: Dr. Murry on 06-27-2022 Bilirubin [Mass/Vol] 0.70 mg/dL 0.20-1.00 [facility] Comment on above: For patients on eltr ombopag therapy, use of Dim[place] TBIL is not recommended. Chloride [Moles/Vol] 101 mmol/L 98-107 [facility] Cholesterol [Mass/Vol] 145 mg/dL <200 [facility] Comment on above: <200 mg/dL Desirable 200-240 mg/dL Borderline >240 mg/dL High Risk Glucose [Mass/Vol] 94 mg/dL 74-106 [facility] Potassium [Moles/Vol] 3.9 mmol/L 3.5-5.1 [facility] Protein [Mass/Vol] 7.5 g/dL 6.4-8.2 [facility] Sodium [Moles/Vol] 138 mmol/L 136-145 [facility] Triglyceride [Mass/Vol] 81 mg/dL <199 [facility] Comment on above: The drugs N-Acetylcy steine and Metamizole may falsely depress this assay.Serum Triglycerides Reference Interval Normal <150 mg/dL Borderline high 150 - 199 mg/dL High 200 - 499 mg/dL Very High > or = 500 mg/dL Laboratory - Chemistry and C hemistry - challengeOrdered By: Dr. Murry on 06-27-2022 ALP [Catalytic activity/Vol] 62 U/L 45-117 [facility] ALT [Catalytic activity/Vol] 47 U/L 13-56 [facility] CO2 [Moles/Vol] 29.0 mmol/L 21.0-32.0 [facility] Globulin (S) [Mass/Vol] 3.7 g/dL 2.2-4.2 [facility] Urea nitrogen/Creatinine [Mass ratio] 22.0 mg/mg 10-20 [facility] No Panel InformationOrdered By: Dr. Murry on 06-27-2022 Estimated GFR (MDRD) Amer 91 mL/min >60 [facility] Comment on above: GFR Calc Estimated GFR (MDRD) Non-Af Amer 75 mL/min >60 [facility] Comment on above: Non- GFR Calc Serum or plasma albumin misty urement (mass/volume)Ordered By: Dr. Murry on 06-27-2022 Albumin [Mass/Vol] 3.8 g/dL 3.2-5.0 [facility] Serum or plasma albumin/glob ulin mass ratioOrdered By: Dr. Murry on 06-27-2022 Albumin/Globulin [Mass ratio] 1.0 {ratio} 0.9-2.4 [facility] Serum or plasma calcium misty urement (mass/volume)Ordered By: Dr. Murry on 06-27-2022 Calcium [Mass/Vol] 9.4 mg/dL 8.5-10.1 [facility] Serum or plasma cholesterol in HDL measurement (mass/volume)Ordered By: Dr. Murry on 06-27-2022 Cholesterol in HDL [Mass/Vol] 52 mg/dL >40 [facility] Comment on above: The drugs N-Acetylcy steine and Metamizole may falsely depress this assay. Reference Range HDL <40 mg/dL Low HDL Cholesterol HDL >or= 60 mg/dL High HDL Cholesterol Serum or plasma cholesterol in VLDL measurement (mass/volume)Ordered By: Dr. Murry on 06-27-2022 Cholesterol in VLDL [Mass/Vol] 16 mg/dL 5-40 [facility] Serum or plasma creatinine m easurement (mass/volume)Ordered By: Dr. Murry on 06-27-2022 Creatinine [Mass/Vol] 0.86 mg/dL 0.55-1.02 [facility] Comment on above: The validity of the calculated GFR & GFRAA in patients over 70 years has not been determined. Clinical correlation is essential. Serum or plasma low density lipoprotein (LDL) cholesterol measurement (mass/volume)Ordered By: Dr. Murry on 06-27-2022 Cholesterol in LDL [Mass/Vol] 77 mg/dL 0-130 [facility] Serum or plasma urea nitroge n measurement (mass/volume)Ordered By: Dr. Murry on 06-27-2022 Urea nitrogen [Mass/Vol] 19 mg/dL 7-18 [facility] Thin prep Papanicolaou smear with manual screeningOrdered By: Dr. Murry on 06-27-2022 Thin prep Papanicolaou smear with manual screening 24 U/L 15-37 [facility] Thin prep Papanicolaou smear with manual screening 8 5-15 [facility] Basophil percentageon 2021 Chloride [Moles/Vol] 104 mmol/L 98-107 [facility] Work Phone: Cholesterol [Mass/Vol] 226 mg/dL <200 [facility] Work Phone: Comment on above: <200 mg/dL Desirable 200-240 mg/dL Borderline >240 mg/dL High Risk Glucose [Mass/Vol] 95 mg/dL 74-106 [facility] Work Phone: Potassium [Moles/Vol] 3.6 mmol/L 3.5-5.1 [facility] Work Phone: Sodium [Moles/Vol] 138 mmol/L 136-145 [facility] Work Phone: Triglyceride [Mass/Vol] 115 mg/dL <199 [facility] Work Phone: Comment on above: The drugs N-Acetylcy steine and Metamizole may falsely depress this assay.Serum Triglycerides Reference Interval Normal <150 mg/dL Borderline high 150 - 199 mg/dL High 200 - 499 mg/dL Very High > or = 500 mg/dL Laboratory - Chemistry and C hemistry - challengeon 04-06-2022 CO2 [Moles/Vol] 27.0 mmol/L 21.0-32.0 [facility] Work Phone: Urea nitrogen/Creatinine [Mass ratio] 27.3 mg/mg 10-20 [facility] Work Phone: No Panel Informationon 04-06 Estimated GFR (MDRD) Amer 81 mL/min >60 [facility] Work Phone: Comment on above: GFR Calc Estimated GFR (MDRD) Non-Af Amer 67 mL/min >60 [facility] Work Phone: Comment on above: Non- GFR Calc Serum or plasma calcium misty urement (mass/volume)on 04-06-2022 Calcium [Mass/Vol] 9.8 mg/dL 8.5-10.1 [facility] Work Phone: Serum or plasma cholesterol in HDL measurement (mass/volume)on 04-06-2022 Cholesterol in HDL [Mass/Vol] 45 mg/dL >40 [facility] Work Phone: Comment on above: The drugs N-Acetylcy steine and Metamizole may falsely depress this assay. Reference Range HDL <40 mg/dL Low HDL Cholesterol HDL >or= 60 mg/dL High HDL Cholesterol Serum or plasma cholesterol in VLDL measurement (mass/volume)on 04-06-2022 Cholesterol in VLDL [Mass/Vol] 23 mg/dL 5-40 [facility] Work Phone: Serum or plasma creatinine m easurement (mass/volume)on 04-06-2022 Creatinine [Mass/Vol] 0.95 mg/dL 0.55-1.02 [facility] Work Phone: Comment on above: The validity of the calculated GFR & GFRAA in patients over 70 years has not been determined. Clinical correlation is essential. Serum or plasma low density lipoprotein (LDL) cholesterol measurement (mass/volume)on 04-06-2022 Cholesterol in LDL [Mass/Vol] 158 mg/dL 0-130 [facility] Work Phone: Serum or plasma urea nitroge n measurement (mass/volume)on 04-06-2022 Urea nitrogen [Mass/Vol] 26 mg/dL 7-18 [facility] Work Phone: Thin prep Papanicolaou smear with manual screeningon 04-06-2022 Thin prep Papanicolaou smear with manual screening 7 5-15 [facility] Work Phone: Libby 09-23-2021 CNOV Office Visit (UCWSTR ) RUPAL BELL ([id number]) 1975 F Date Time Provider Department 09/23/21 2:15 PM [facility] During your visit today, we recorded the following information about you: Temperature Pulse Respiration Blood pressure 98.6 degrees 96/minute 16/minute 122/70 Weight 87.5 kg Florence Mayorga APRN.RADIOLOGY SERVICES MANAGER 09/23/2021 2:37 PM Signed Subjective The history is provided by the patient. No certified pharmacy tech was used. HPI Rupal Bell is a 46 year old female who presents today for CC of sinus pressure and congestion that are worsening over the past 24 hours, worse on left side. Symptoms started over a week ago. She has used flonase, benadryl, halls without relief. She has h/o of sinusitis in the past, htn. Normal kidney function per patient. BP 122/70 Pulse 96 Temp 37 ?C (98.6 ?F) Resp 16 Wt 87.5 kg (193 lb) LMP 01/19/2016 SpO2 99% BMI 31.69 kg/m? Social History Tobacco Use - Smoking status: Never Smoker - Smokeless tobacco: Never Used Substance Use Topics - Alcohol use: Yes Alcohol/week: 12.5 standard drinks Types: 5 Cans of Beer (12oz) per week Comment: Occasionally - Drug use: No PAST MEDICAL HISTORY Diagnosis Date - Allergic rhinitis, cause unspecified Allergic rhinitis - Unspecified asthma(493.90) Asthma Unspecified I have confirmed and edited as necessary, the [facility] Review of Systems Constitutional: Negative for chills, fever and malaise/fatigue. HENT: Positive for congestion, ear pain (pressure) and sinus pain. Negative for sore throat. Respiratory: Negative for cough, sputum production, shortness of breath and wheezing. Cardiovascular: Negative for chest pain. Gastrointestinal: Negative for abdominal pain, diarrhea, nausea and vomiting. Musculoskeletal: Negative for myalgias. Neurological: Positive for headaches (sinus). Objective Physical Exam Vitals and nursing note reviewed. HENT: Head: Normocephalic and atraumatic. Right Ear: Tympanic membrane, ear canal and external ear normal. Left Ear: Ear canal and external ear normal. A middle ear effusion is present. Tympanic membrane is bulging. Nose: Mucosal edema and rhinorrhea present. Right Sinus: Maxillary sinus tenderness present. No frontal sinus tenderness. Left Sinus: Maxillary sinus tenderness and frontal sinus tenderness present. Mouth/Throat: Pharynx: Uvula midline. No oropharyngeal exudate or posterior oropharyngeal erythema. Lymphadenopathy: Head: Right side of head: No submental, submandibular or tonsillar adenopathy. Left side of head: No submental, submandibular or tonsillar adenopathy. Cervical: No cervical adenopathy. Skin: General: Skin is warm and dry. Neurological: Mental Status: She is alert. Psychiatric: Mood and Affect: Affect normal. ASSESSMENT/PLAN: 1. Acute non-recurrent pansinusitis - ICD9: 461.8, ICD10: J01.40 - Will begin treatment with Augmentin 875 mg PO BID for 5 days - Supportive care with plenty of fluids, rest, and analgesia prn. - Follow up in one week if symptoms persist or worsen. - Continue flonase, mucinex prn Diagnosis and treatment plan were discussed and questions were answered to the patient's satisfaction. Pt acknowledged understanding of concepts and follow up plan. Specific signs and symptoms that would indicate the need for higher level of care were discussed in detail warranting prompt ER evaluation. Florence Mayorga APRN.CATHY Mayorga APRN.CATHY 09/23/2021 2:23 PM Signed -Increase fluid intake. --Rest as much as possible. - Nasal saline spray, vineet pot, flonase Take the entire course of antibiotics as prescribed. DO NOT stop taking it early, even if you are feeling better. -Monitor for signs of worsening infection: increased temperature, pain in face, ear pain or headaches or increase in nasal congestion/mucous that is not improving. -Educated patient on side effects of medication. Referring Provider: SELF [[id number]] Allergies As of Date: 09/23/2021 Noted Allergy Reaction POLLEN 12/03/2008 SEASONAL ALLERGIES 12/29/2010 14 - Other: See Comments Date Reviewed: 09/23/2021 Reviewed by: Marie Fritz - Fully Assessed Reason for Visit: Sinus Problem [99] Cmt: drainage, cough, losing voice x 1 week Primary Visit Diagnosis:Acute non-recurrent pansinusitis [J01.40] Order(s):amoxicillin- clavulanic acid (AUGMENTIN) 875-125 mg per tabletTake 1 tablet by mouth twice daily for 5 days.Disp: 10 tabletRfl: 0 Prescriptions as of 09/23/2021 - amoxicillin-clavulani c acid (AUGMENTIN) 875-125 mg per tablet Take 1 tablet by mouth twice daily for 5 days. - lisinopril (ZESTRIL, PRINIVIL) 5 mg tablet Take 5 mg by mouth once daily. - hydroCHLOROthiazide (HYDRODIURIL, ESIDRIX) 25 mg tablet Take 25 mg by mouth once daily. - guaiFENesin (MUCINEX) 600 mg 12 hr tablet Take 2 tablets by mouth twice daily. - flut (more content not included)... Normal [facility] As[employer] Elective [id number] SARS-CoV-2 (COVID-19) RNA EASTON+probe Ql (Unsp spec) UPPER RESPIRATORY TRACT SWAB Normal [facility] Comment on above: Performed By: #### P PCOVD #### [facility] [id number] [id number] SARS-CoV-2 (COVID-19) RNA EASTON+probe Ql (Unsp spec) Negative for COVID19 (SARS CoV2) by RT-PCR or equivalent method. Normal Negative for COVID19 (SARS CoV2) by RT-PCR or equivalent method. [facility] Comment on above: Result Comment: This test was developed and its performance characteristics determined by [facility] [place]. This test has been authorized by FDA under an Emergency Use Authorization (EUA). This test has been validated in accordance with the FDA's Guidance Document Policy for Diagnostics Testing in Laboratories Certified to Perform High Complexity Testing under CLIA prior to Emergency use Authorization for Coronavirus Disease 2019 during the Public Health Emergency issued on September 06, 2019. Test performed by [facility], [facility] [place], [address] [place] [address]. Performed By: #### P PCOVD #### [place] [address] As[employer] Elective [id number] SARS-CoV-2 (COVID-19) RNA EASTON+probe Ql (Unsp spec) UPPER RESPIRATORY TRACT SWAB Normal [facility] Comment on above: Performed By: #### P PCOVD #### [place] [address] SARS-CoV-2 (COVID-19) RNA EASTON+probe Ql (Unsp spec) Negative for COVID19 (SARS CoV2) by RT-PCR or equivalent method. Normal Negative for COVID19 (SARS CoV2) by RT-PCR or equivalent method. [facility] Comment on above: Result Comment: This test was developed and its performance characteristics determined by [facility] [place]. This test has been authorized by FDA under an Emergency Use Authorization (EUA). This test has been validated in accordance with the FDA's Guidance Document Policy for Diagnostics Testing in Laboratories Certified to Perform High Complexity Testing under CLIA prior to Emergency use Authorization for Coronavirus Disease 2019 during the Public Health Emergency issued on September 06, 2019. Test performed by [facility], [facility] and [facility] [place], [address] [place] [address]. Performed By: #### P PCOVD #### [place] [address] [employer] [id number] SARS-CoV-2 (COVID-19) RNA EASTON+probe Ql (Unsp spec) UPPER RESPIRATORY TRACT SWAB Normal [facility] Comment on above: Performed By: #### P PCOVD #### [place] [address] SARS-CoV-2 (COVID-19) RNA EASTON+probe Ql (Unsp spec) Negative for COVID19 (SARS CoV2) by RT-PCR or equivalent method. Normal Negative for COVID19 (SARS CoV2) by RT-PCR or equivalent method. [facility] Comment on above: Result Comment: This test was developed and its performance characteristics determined by [facility] [place]. This test has been authorized by FDA under an Emergency Use Authorization (EUA). This test has been validated in accordance with the FDA's Guidance Document Policy for Diagnostics Testing in Laboratories Certified to Perform High Complexity Testing under CLIA prior to Emergency use Authorization for Coronavirus Disease 2019 during the Public Health Emergency issued on September 06, 2019. Test performed by [facility], [facility] and [facility] [place], [address] [place] [address]. Performed By: #### P PCOVD #### [place] [address] As[employer] Elective [id number] SARS-CoV-2 (COVID-19) RNA EASTON+probe Ql (Unsp spec) UPPER RESPIRATORY TRACT SWAB Normal [facility] Comment on above: Performed By: #### P PCOVD #### [place] [address] SARS-CoV-2 (COVID-19) RNA EASTON+probe Ql (Unsp spec) Negative for COVID19 (SARS CoV2) by RT-PCR or equivalent method. Normal Negative for COVID19 (SARS CoV2) by RT-PCR or equivalent method. [facility] Comment on above: Result Comment: This test was developed and its performance characteristics determined by [facility] [place]. This test has been authorized by FDA under an Emergency Use Authorization (EUA). This test has been validated in accordance with the FDA's Guidance Document Policy for Diagnostics Testing in Laboratories Certified to Perform High Complexity Testing under CLIA prior to Emergency use Authorization for Coronavirus Disease 2019 during the Public Health Emergency issued on September 06, 2019. Test performed by [facility], [facility] [place], [address] [place] [address]. Performed By: #### P PCOVD #### [place] [address] [employer]ive [id number] SARS-CoV-2 (COVID-19) RNA EASTON+probe Ql (Unsp spec) UPPER RESPIRATORY TRACT SWAB Normal [facility] Comment on above: Performed By: #### P PCOVD #### [place] [address] SARS-CoV-2 (COVID-19) RNA EASTON+probe Ql (Unsp spec) Negative for COVID19 (SARS CoV2) by RT-PCR or equivalent method. Normal Negative for COVID19 (SARS CoV2) by RT-PCR or equivalent method. [facility] Comment on above: Result Comment: This test was developed and its performance characteristics determined by [facility] [place]. This test has been authorized by FDA under an Emergency Use Authorization (EUA). This test has been validated in accordance with the FDA's Guidance Document Policy for Diagnostics Testing in Laboratories Certified to Perform High Complexity Testing under CLIA prior to Emergency use Authorization for Coronavirus Disease 2019 during the Public Health Emergency issued on September 06, 2019. Test performed by [facility], [facility] and [facility] [place], [address] [place] [address]. Performed By: #### P PCOVD #### [place] [address] [employer] [id number] SARS-CoV-2 (COVID-19) RNA EASTON+probe Ql (Unsp spec) UPPER RESPIRATORY TRACT SWAB Normal [facility] Comment on above: Performed By: #### P PCOVD #### [place] [address] SARS-CoV-2 (COVID-19) RNA EASTON+probe Ql (Unsp spec) Negative for COVID19 (SARS CoV2) by RT-PCR or equivalent method. Normal Negative for COVID19 (SARS CoV2) by RT-PCR or equivalent method. [facility] Comment on above: Result Comment: This test was developed and its performance characteristics determined by [facility] [place]. This test has been authorized by FDA under an Emergency Use Authorization (EUA). This test has been validated in accordance with the FDA's Guidance Document Policy for Diagnostics Testing in Laboratories Certified to Perform High Complexity Testing under CLIA prior to Emergency use Authorization for Coronavirus Disease 2019 during the Public Health Emergency issued on September 06, 2019. Test performed by [facility], [facility] [place], [address] [place] [address]. Performed By: #### P PCOVD #### [place] [address] Office Visit: est annualon 1 Documentation of current medications (procedure) Done Invalid Interpretation Code [facility] Fall risk assessment No Invalid Interpretation Code [facility] Hemoglobin presence in stool not done Invalid Interpretation Code [facility] Tobacco smoking status [facility] Never Invalid Interpretation Code [facility] Tobacco use [facility] Never smoker Invalid Interpretation Code 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 Office Visit: est annualon 0 02-06-2015 General categories [Interpretation] of Cervical or vaginal smear or scraping by Cyto stain Normal Invalid Interpretation Code [facility] Vital Signs Date Time Vital Sign Value Performing Clinician Faci nannette 03-19-2025 13:12-0400 Body height 167.[address] Ynes Murry MD Work Phone: [facility] 03-19-2025 13:12-0400 Body temperature 98.5 [degF] Dr. Ynes Murry MD Work Phone: [facility] 03-19-2025 13:12-0400 Diastolic blood pressure 78 mm[Hg] Dr. Ynes Murry MD Work Phone: [facility] 03-19-2025 13:12-0400 Heart rate 72 /min Dr. Ynes Murry MD Work Phone: [facility] 03-19-2025 13:12-0400 Respiratory rate 16 /min Dr. Ynes Murry MD Work Phone: [facility] 03-19-2025 13:12-0400 SaO2% (BldA) [Mass fraction] 97 % Dr. Ynes Murry MD Work Phone: [facility] 03-19-2025 13:12-0400 Systolic blood pressure 112 mm[Hg] Dr. Ynes Murry MD Work Phone: [facility] 01-28-2025 09:11-0400 Body height 167.[address] Ynes Murry MD Work Phone: [facility] 01-28-2025 09:11-0400 Body mass index (BMI) [Ratio] 33.7 kg/m2 Dr. Ynes Murry MD Work Phone: [facility] 01-28-2025 09:11-0400 Body temperature 96.3 [degF] Dr. Ynes Murry MD Work Phone: [facility] 01-28-2025 09:11-0400 Body weight 94.[address] Ynes Murry MD Work Phone: [facility] 01-28-2025 09:11-0400 Diastolic blood pressure 70 mm[Hg] Dr. Ynes Murry MD Work Phone: [facility] 01-28-2025 09:11-0400 Heart rate 80 /min Dr. Ynes Murry MD Work Phone: [facility] 01-28-2025 09:11-0400 Respiratory rate 16 /min Dr. Ynes Murry MD Work Phone: [facility] 01-28-2025 09:11-0400 SaO2% (BldA) [Mass fraction] 95 % Dr. Ynes Murry MD Work Phone: [facility] 01-28-2025 09:11-0400 Systolic blood pressure 118 mm[Hg] Dr. Ynes Murry MD Work Phone: [facility] 10-01-2024 10:21-0400 Body height 167.[address] Ynes Murry MD Work Phone: [facility] 10-01-2024 10:21-0400 Body mass index (BMI) [Ratio] 33.4 kg/m2 Dr. Ynes Murry MD Work Phone: [facility] 10-01-2024 10:21-0400 Body temperature 96.7 [degF] Dr. Ynes Murry MD Work Phone: [facility] 10-01-2024 10:21-0400 Body weight 93.[address] Ynes Murry MD Work Phone: [facility] 10-01-2024 10:21-0400 Diastolic blood pressure 78 mm[Hg] Dr. Ynes Murry MD Work Phone: [facility] 10-01-2024 10:21-0400 Heart rate 60 /min Dr. Ynes Murry MD Work Phone: [facility] 10-01-2024 10:21-0400 Respiratory rate 12 /min Dr. Ynes Murry MD Work Phone: [facility] 10-01-2024 10:21-0400 SaO2% (BldA) [Mass fraction] 97 % Dr. Ynes Murry MD Work Phone: [facility] 10-01-2024 10:21-0400 Systolic blood pressure 132 mm[Hg] Dr. Ynes Murry MD Work Phone: [facility] 06-20-2024 07:29-0500 Body mass index (BMI) [Ratio] 33.2 kg/m2 Dr. Ynes Murry MD Work Phone: [facility] 06-20-2024 07:29-0500 Body temperature 97.6 [degF] Dr. Ynes Murry MD Work Phone: [facility] 06-20-2024 07:29-0500 Body weight 93.[address] Ynes Murry MD Work Phone: [facility] 06-20-2024 07:29-0500 Diastolic blood pressure 68 mm[Hg] Dr. Ynes Murry MD Work Phone: [facility] 06-20-2024 07:29-0500 Heart rate 70 /min Dr. Ynes Murry MD Work Phone: [facility] 06-20-2024 07:29-0500 Respiratory rate 16 /min Dr. Ynes Murry MD Work Phone: [facility] 06-20-2024 07:29-0500 SaO2% (BldA) [Mass fraction] 97 % Dr. Ynes Murry MD Work Phone: [facility] 06-20-2024 07:29-0500 Systolic blood pressure 118 mm[Hg] Dr. Ynes Murry MD Work Phone: [facility] 06-16-2024 08:14-0500 Body mass index (BMI) [Ratio] 32.5 kg/m2 Dr. Ynes Murry MD Work Phone: [facility] 06-16-2024 08:14-0500 Body weight 91.[address] Ynes Murry MD Work Phone: [facility] 06-16-2024 08:14-0500 Diastolic blood pressure 81 mm[Hg] Dr. Ynes Murry MD Work Phone: [facility] 06-16-2024 08:14-0500 Systolic blood pressure 128 mm[Hg] Dr. Ynes Murry MD Work Phone: [facility] 06-07-2023 08:11-0500 Body height 167.[address] Ynes Murry Work Phone: [facility] 06-07-2023 08:03-0500 Body mass index (BMI) [Ratio] 32.1 kg/m2 Dr. Ynes Murry Work Phone: [facility] 06-07-2023 08:03-0500 Body weight 90.[address] Ynes Murry Work Phone: [facility] 06-07-2023 08:03-0500 Diastolic blood pressure 78 mm[Hg] Dr. Ynes Murry Work Phone: [facility] 06-07-2023 08:03-0500 Systolic blood pressure 112 mm[Hg] Dr. Ynes Murry Work Phone: [facility] 04-09-2023 08:03-0400 Body height 167.[address] Ynes Murry Work Phone: [facility] 04-09-2023 08:03-0400 Body mass index (BMI) [Ratio] 32.5 kg/m2 Dr. Ynes Murry Work Phone: [facility] 04-09-2023 08:03-0400 Body temperature 97.5 [degF] Dr. Ynes Murry Work Phone: [facility] 04-09-2023 08:03-0400 Body weight 91.[address] Ynes Murry Work Phone: [facility] 04-09-2023 08:03-0400 Diastolic blood pressure 76 mm[Hg] Dr. Ynes Murry Work Phone: [facility] 04-09-2023 08:03-0400 Heart rate 70 /min Dr. Ynes Murry Work Phone: [facility] 04-09-2023 08:03-0400 Respiratory rate 18 /min Dr. Ynes Murry Work Phone: [facility] 04-09-2023 08:03-0400 SaO2% (BldA) [Mass fraction] 99 % Dr. Ynes Murry Work Phone: [facility] 04-09-2023 08:03-0400 Systolic blood pressure 108 mm[Hg] Dr. Ynes Murry Work Phone: [facility] 10-11-2022 07:56-0400 Body height 167.[address] Ynes Murry Work Phone: [facility] 10-11-2022 07:56-0400 Body mass index (BMI) [Ratio] 32.1 kg/m2 Dr. Ynes Murry Work Phone: [facility] 10-11-2022 07:56-0400 Body temperature 96.7 [degF] Dr. Ynes Murry Work Phone: [facility] 10-11-2022 07:56-0400 Body weight 90.[address] Ynes Murry Work Phone: [facility] 10-11-2022 07:56-0400 Diastolic blood pressure 60 mm[Hg] Dr. Ynes Murry Work Phone: [facility] 10-11-2022 07:56-0400 Heart rate 74 /min Dr. Ynes Murry Work Phone: [facility] 10-11-2022 07:56-0400 Respiratory rate 18 /min Dr. Ynes Murry Work Phone: [facility] 10-11-2022 07:56-0400 SaO2% (BldA) [Mass fraction] 97 % Dr. Ynes Murry Work Phone: [facility] 10-11-2022 07:56-0400 Systolic blood pressure 104 mm[Hg] Dr. Ynes Murry Work Phone: [facility] 06-05-2022 09:39-0500 Body height 167.[address] Ynes Murry Work Phone: [facility] Work Phone: 06-05-2022 09:38-0500 Body mass index (BMI) [Ratio] 31.4 kg/m2 Dr. Ynes Murry Work Phone: [facility] Work Phone: 06-05-2022 09:38-0500 Body weight 88.[address] Ynes Murry Work Phone: [facility] Work Phone: 06-05-2022 09:38-0500 Diastolic blood pressure 73 mm[Hg] Dr. Ynes Murry Work Phone: [facility] Work Phone: 06-05-2022 09:38-0500 Systolic blood pressure 130 mm[Hg] Dr. Ynes Murry Work Phone: [facility] Work Phone: 04-10-2022 08:24-0400 Body height 167.[address] Ynes Murry Work Phone: [facility] Work Phone: 04-10-2022 08:24-0400 Body mass index (BMI) [Ratio] 30.9 kg/m2 Dr. Ynes Murry Work Phone: [facility] Work Phone: 04-10-2022 08:24-0400 Body temperature 98.5 [degF] Dr. Ynes Murry Work Phone: [facility] Work Phone: 04-10-2022 08:24-0400 Body weight 87.[address] Ynes Murry Work Phone: [facility] Work Phone: 04-10-2022 08:24-0400 Diastolic blood pressure 74 mm[Hg] Dr. Ynes Murry Work Phone: [facility] Work Phone: 04-10-2022 08:24-0400 Heart rate 57 /min Dr. Ynes Murry Work Phone: [facility] Work Phone: 04-10-2022 08:24-0400 Respiratory rate 14 /min Dr. Ynes Murry Work Phone: [facility] Work Phone: 04-10-2022 08:24-0400 SaO2% (BldA) [Mass fraction] 99 % Dr. Ynes Murry Work Phone: [facility] Work Phone: 04-10-2022 08:24-0400 Systolic blood pressure 126 mm[Hg] Dr. Ynes Murry Work Phone: [facility] Work Phone: 04-11-2017 08:24-0400 BMI (Body Mass Index) 28.4 kg/m2 Sudha Sutton MD [facility] 04-11-2017 08:24-0400 Body Temperature 97.5 [degF] Sudha Sutton MD [facility] 04-11-2017 08:24-0400 BP Diastolic 83 mm[Hg] Sudha Sutton MD [facility] 04-11-2017 08:24-0400 BP Systolic 136 mm[Hg] Sudha Sutton MD [facility] 04-11-2017 08:24-0400 Height 167.64 cm Sudha Sutton MD [facility] 04-11-2017 08:24-0400 Pulse (Heart Rate) 66 /min Sudha Sutton MD [facility] 04-11-2017 08:24-0400 Respiratory Rate 16 /min Sudha Sutton MD [facility] 04-11-2017 08:24-0400 Weight 79.83 kg Sudha Sutton MD [facility] Encounters Encounter Date Encounter Type Care Provider Facility Start: 05-20-2025 End: 05-20-2025 ambulatory [facility] Facility:[facility] Start: 03-19-2025 End: 03-19-2025 Patient encounter procedure Star Watts [facility] -[facility] Work Phone: Start: 03-19-2025 End: 03-19-[address] Ynes Murry MD Work Phone: -[facility] Start: 01-28-2025 End: 01-28-[address] Ynes Murry MD -[facility] Work Phone: Start: 01-28-2025 End: 01-28-[address] Ynes Murry MD Work Phone: -[facility] Start: 01-28-2025 End: 01-28-2025 ambulatory [facility] Facility:[facility] Start: 10-02-2024 End: 10-02-[address] Ynes Murry MD Work Phone: [facility] Work Phone: Start: 10-02-2024 End: 10-02-[address] Ynes Murry MD -Laboratory, BERWYN Start: 10-01-2024 End: 10-01-[address] Ynes Murry MD -[facility] Work Phone: Start: 10-01-2024 End: 10-02-[address] Ynes Murry MD Work Phone: [facility] Work Phone: Start: 10-01-2024 End: 10-01-2024 ambulatory [facility] Facility:[facility] Start: 08-12-2024 End: 08-12-2024 [facility] Start: 08-12-2024 End: 08-12-2024 ambulatory [facility] Start: 06-20-2024 End: 06-20-2024 Patient encounter procedure Armani PASCUAL -[facility] Work Phone: Start: 06-20-2024 End: 06-20-2024 ambulatory Armani PASCUAL Facility:[facility] Start: 06-16-2024 Encounter for gynecological examination (general) (routine) without abnormal findings Sudha Sutton [facility] Start: 06-16-2024 End: 06-16-[address] Sudha Sutton MD -[facility] Work Phone: Start: 06-16-2024 End: 06-16-[address] Sudha Sutton MD [facility] Start: 06-16-2024 End: 06-16-2024 ambulatory [facility] Facility:[facility] Start: 06-02-2024 End: 06-02-2024 ambulatory Sudha Sutton Facility:[facility] Start: 10-06-2023 End: 10-06-2023 ambulatory [facility] Work Phone: Start: 10-06-2023 End: 10-06-2023 Patient encounter procedure [facility]-Laboratory Work Phone: Start: 06-07-2023 End: 06-07-[address] Ynes Murry Work Phone: [facility] Work Phone: Start: 06-07-2023 End: 06-07-[address] Ynes Murry Work Phone: [facility]-Laboratory, Specimen Work Phone: Start: 06-07-2023 End: 06-07-[address] Ynes Murry Work Phone: [facility] Work Phone: Start: 06-01-2023 End: 06-01-[address] Ynes Murry Work Phone: [facility] Work Phone: Start: 06-01-2023 End: 06-01-[address] Ynes Murry Work Phone: [facility]-Outpatient Breast Imaging Work Phone: Start: 04-09-2023 End: 04-09-[address] Ynes Murry Work Phone: [facility] Work Phone: Start: 04-04-2023 End: 04-04-[address] Ynes Murry Work Phone: [facility] Work Phone: Start: 04-04-2023 End: 04-04-[address] Ynes Murry Work Phone: [facility] Work Phone: Start: 10-20-2022 End: 10-20-[address] Ynes Murry Work Phone: [facility] Work Phone: Start: 10-20-2022 End: 10-20-[address] Ynes Murry Work Phone: [facility] Start: 10-11-2022 End: 10-11-[address] Ynes Murry Work Phone: [facility] Start: 10-06-2022 End: 10-06-[address] Ynes Murry Work Phone: [facility] Work Phone: Start: 10-06-2022 End: 10-06-[address] Ynes Murry Work Phone: [facility] Start: 06-27-2022 End: 06-27-[address] Ynes Murry Work Phone: [facility] Start: 06-05-2022 End: 06-05-[address] Ynes Murry Work Phone: [facility] Start: 05-31-2022 End: 05-31-[address] Ynes Murry Work Phone: [facility] Work Phone: Start: 05-31-2022 End: 05-31-[address] Ynes Murry Work Phone: [facility]-Outpatient Breast Imaging Start: 04-10-[address] Arianne Murry Work Phone: [facility] Start: 04-10-2022 End: 04-10-2022 Encounter for general adult medical examination without abnormal findings Dr. Ynes Murry Work Phone: [facility] Start: 04-10-2022 End: 04-10-[address] Ynes Murry Work Phone: [facility] Start: 04-06-2022 End: 04-06-[address] Ynes Murry Work Phone: [facility] Work Phone: Start: 04-06-2022 End: 04-06-[address] Ynes Murry Work Phone: [facility] [place] Procedures Date Procedure Procedure Detail Performing Clinician Start: 10-02-[address] Ynes Murry MD Work Phone: Start: 10-02-2024 Vitamin D, 25-hydrox y measurement Dr. Ynes Murry MD Work Phone: Comment on above: Vitamin D StatusDefi ciency: <20 ng/mL (50nmol/L)Insufficiency: 20-30 ng/mL (50-75 nmol/L)Sufficiency: 30-100 ng/mL (75-250 nmol/L)Toxicity: >100 ng/mL (>250 nmol/L) Start: 06-01-2023 Screening mammography Song Murry Work Phone: Start: 10-20-2022 US scan of thyroid Dr. Ynes Murry Work Phone: Start: 05-31-2022 Screening mammography Song Murry Work Phone: Plan of Treatment Date Care Activity Detail Author Start: 01-28-2025 Basic metabolic 2008 panel with ionized calcium - Serum or Plasma [facility] Start: 04-11-2017 End: 04-11-2017 Appointment Appointment [facility] Work Phone: Start: 04-05-2017 End: 04-05-2017 Appointment Appointment [facility] Start: 01-25-2017 End: 01-25-2017 Mammogram, screening Mammogram-Bilateral, Screening, Bilateral [facility] Start: 01-25-2017 End: 07-20-2017 Mammogram, screening Mammogram-Bilateral, Screening, Bilateral [facility] Anion gap in Serum o r Plasma [facility] Blood chemistry [facility] BUN/Creatinine ratio [facility] Calcium [Mass/volume ] in Serum or Plasma [facility] Carbon dioxide, tota l [Moles/volume] in Central venous blood [facility] CBC W Auto Different ial panel - Blood [facility] Creatinine [Mass/vol ume] in Serum or Plasma [facility] Glucose [Mass/volume ] in Serum or Plasma [facility] Lipid 1996 panel - S natasha or Plasma [facility] Measurement of renal function [facility] Potassium measurement [facility] Serum chloride measurement [facility] Sodium measurement [facility] Urea nitrogen [Mass/volume] in Serum or Plasma [facility] US Thyroid gland [facility] Immunizations Immunization Date Immunization Notes Care Provider Fa cility 04-14-2024 influenza, injectabl e, madin david canine kidney, preservative free Dr. Ynes Murry MD Work Phone: [facility] 04-09-2023 influenza, injectabl e, quadrivalent, preservative free Dr. Ynes Murry Work Phone: [facility] 04-04-2023 Pf[facility] Dr. Ynes Murry MD Work Phone: [facility] 04-05-2022 Influenza, injectabl e, Madin David Canine Kidney, preservative free, quadrivalent Dr. Ynes Murry MD Work Phone: [facility] 03-25-2022 Covid Pfizer Bivalen t Booster Dr. Ynes Murry MD Work Phone: [facility] 12-11-2021 Covid (Pfizer) Dr. Ynse Murry MD Work Phone: [facility] 04-30-2021 Covid (Pfizer) Dr. Ynes Murry MD Work Phone: [facility] 04-16-2021 influenza, injectabl e, quadrivalent, preservative free Dr. Ynes Murry MD Work Phone: [facility] 10-03-2020 Covid (Pfizer) Dr. Ynes Murry Work Phone: [facility] 09-12-2020 Covid (Pfizer) Dr. Ynes Murry Work Phone: [facility] 04-17-2020 influenza, injectabl e, quadrivalent, preservative free Dr. Ynes Murry MD Work Phone: [facility] 04-06-2018 influenza, injectabl e, quadrivalent, preservative free Dr. Ynes Murry MD Work Phone: [facility] 04-08-2015 influenza, injectabl e, quadrivalent, preservative free Dr. Ynes Murry MD Work Phone: [facility] 04-15-2014 influenza, injectabl e, quadrivalent, preservative free Dr. Ynes Murry MD Work Phone: [facility] 04-09-2014 tetanus toxoid, redu abebe diphtheria toxoid, and acellular pertussis vaccine, adsorbed Dr. Ynes Murry MD Work Phone: [facility] 05-25-2009 novel [id number], preservative-free, injectable Dr. Ynes Murry MD Work Phone: [facility] Payers Date Payer Category Payer Self-pay [id number] 2023 Unknown [id number] 2010 Private Health Insurance [id number] Unknown [id number] Unknown [id number] 2.16.8 [id number] Unknown [id number] 2.16.8 [id number] Unknown [id number] 2.16.8 [id number] Unknown [id number] 2.16.8 [id number] Unknown [id number] 2.16.8 [id number] Unknown [id number] 2.16.8 [id number] Unknown [id number] 2.16.8 [id number] Unknown [id number] 2.16.8 [id number] Unknown [id number] 2.16.8 [id number] Unknown [id number] 2.16.8 [id number] Unknown [id number] 2.16.8 [id number] Social History Date Type Detail Facility Start: 04-10-2022 End: 06-07-2023 Tobacco smoking status NHIS Unknown if ever smoked [facility] Start: 1975 Sex Assigned At Female [facility] Start: 10-12-2023 Tobacco smoking stat us SDIS Never smoked tobacco (finding) [facility] Start: 10-06-2024 End: 10-07-2024 Sex Female (finding) [facility] Clinical Notes 09-23-2021 to 03-19-2025 Note Date & Type Note Facility 03-19-2025 Progress note [facility] 03-19-2025 Progress note Note Date/Time March 19, 2025 1:30pm [facility] [address] , [address] [place] [address] OFFICE VISIT Date of Service: 03/19/25 MR#: [id number] Acct: [id number] Name: RUPAL BELL Rep #: [id number] : 1975 Provider: ANKUR Acevedo Age/Sex: 50/F Location[place] [facility] Status: Signed Intake Vital Signs 01/28/25 09:11 03/19/25 13:12 Height 5 ft 6 in 5 ft 6 in Weight: 209 lb BMI 33.7 BP 118/70 112/78 Blood Pressure Location Lt brachial Rt brachial Position Sitting Sitting Respiration 16 16 Pulse 80 72 Pulse Source Monitor Monitor Temp 96.3 F L 98.5 F Temp Source Temporal Temporal Pulse Oximetry (%) 95 97 Oxygen Delivery Method room air room air Intake Visit Reasons: CONCERN FOR SINUS INFECTION 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 Coordinator Required: No Accompanied by: Self Is patient in pain?: Yes (Sinus pain, headache) Pain scale (1-10): 4 Allergies No Known Allergies Allergy (Verified 03/19/25 13:08) Medications ?Medication ?Instructions ?Recorded ?Confirmed ?Type albuterol sulfate 90 mcg/actuation 2 puff inhalation Q 6H PRN ASTHMA 01/11/18 03/19/25 History aerosol inhaler (ProAir HFA) levonorgestrel (Mirena) 1 insert intrauterine ONCE 0 01/11/18 03/19/25 History multivitamin 1 cap PO QAM 01/11/18 History cholecalciferol (vitamin D3) 50 2,000 unit PO DAILY 03/19/25 History mcg (2,000 unit) capsule ascorbate calcium (vitamin C) 500 500 mg PO BID 03/19/25 History mg tablet fluticasone propionate 50 2 spray intranasal DAILY PRN 01/31/21 03/19/25 Rx mcg/actuation nasal allergy symptoms #9.9 mL spray,suspension calcium carbonate (Calcium 500) 500 mg PO QDAY 4 03/19/25 History hydrochlorothiazide 25 mg tablet 25 mg PO DAILY #90 ta bs 10/13/24 03/19/25 Rx rosuvastatin 10 mg tablet 10 mg PO DAILY #90 tabs 01/0703/19/25 Rx lisinopril 20 mg tablet 20 mg PO DAILY #90 tabs 02/0703/19/25 Rx albuterol sulfate 90 mcg/actuation 2 puff inhalation Q 4-6H PRN 03/19/25 03/19/25 Rx aerosol inhaler (Ventolin HFA) shortness of breath or wheezing #6.7 grams amoxicillin 875 mg-potassium 1 tab PO Q12H 10 days #20 tabs 03/19/25 03/19/25 Rx clavulanate 125 mg tablet ipratropium bromide 21 mcg (0.03 2 spray intranasal BI D-TID PRN 03/19/25 03/19/25 Rx %) nasal spray postnasal drainage #30 mL methylprednisolone 4 mg tablets in 4 mg PO PER PKG DIR 6 days #21 tabs 03/19/25 03/19/25 Rx a dose pack (Medrol (Cesar)) Nurse's Note: Cough, dry that is especially bothersome at night. Chest congestion, sinus congestion, pressure with cloudy thick white drainage, and headache for 10 days.Denies fever or chills at this time. Negative home COVID test x 3 and last test 6 days ago. Benadryl taken with slight relief. [facility] Medical History Serum calcium elevated Vision abnormalities Flu vaccine need Health care maintenance Hypertension Hyperlipidemia Right hip pain Non-smoker Colon cancer screening Hypertension BP (high blood pressure) Thyroid nodule Umbilical hernia Seasonal allergies Asthma Surgical History H/O dilation and curettage (~2010) Family History Father Asthma Hyperlipemia Parkinson disease Mother Hypertension Cancer Sub tissue carcoma Grandfather Myocardial infarction, Onset Age: 55 Son Asthma Social History adopted: No household members: family housing: house number of children: 2 current occupational status: employed 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 Patient denies hemoptysis, shortness of breath or difficulty breathing. No fever, chills or sweats. No nausea, vomiting or diarrhea. No loss of taste or smell. No other associated symptoms or alleviating/aggravating factors. ROS Const Constitutional: No other (6 system ROS completed with pertinent findings in the HPI otherwise normal.) Exam Const General: cooperative and healthy appearing HENMT Head: normal to inspection Ears: hearing grossly normal bilaterally, TM's normal bilaterally and EAC's normal Nose: nasal discharge purulent Face and sinus: sinus tenderness frontal and maxillary Mouth: oral mucosae normal Throat: abnormal tonsil bilaterally erythema and hypertrophy 1+ and postnasal drainage Resp Effort & Inspection: normal respiratory effort Auscultation: Bilateral: Clear to Auscultation Cardio Palpation: normal PMI Rate: regular rate Rhythm: regular rhythm Neuro General: patient alert and CN's II-XI intact bilaterally Psych Appearance: grossly normal Mental Status: mental status grossly normal Coding Level of Care Code Off vis,est,level 3 Diagnoses Acute sinusitis J01.90 Assessment and Plan Assessment and Plan (1) Acute sinusitis: Status: Acute Plan: Augmentin as prescribed today. Encouraged to get plenty of rest, drink lots of clear liquids, and use Tylenol or Ibuprofen (unless contraindicated) for fever and comfort. Patient also educated on other symptomatic management techniques. To be seen in 7-10 days if no improvement; sooner if worsening of symptoms. Patient advised of potential red flags and when appropriate to report to the ED. Patient verbalized understanding and agreement with all the above. Medications: New amoxicillin-pot clavulanate 875-125 mg 1 TAB PO Q12H 10 days 20 tabs 0RF J01.90 - Acute sinusitis, unspecified methylprednisolone (Medrol (Cesar)) 4 mg PO PER PKG DIR 6 days 21 tabs 0RF ipratropium bromide administer into each nostril 2 sprays intranasal BID-TID PRN 30 mL 0RF postnasal drainage albuterol sulfate 90 mcg/actuation (Ventolin HFA) 2 puffs inhalation Q4-6H PRN 6.7 grams 0RF shortness of breath or wheezing 03/19/25 1330 <Electronically signed by Stra PASCUAL> Date _ Star PASCUAL Cosigner Signature: Date (if applicable) CC: ~ [facility] Work Phone: 1(345) 793-170107-23-2025 Evaluation note* Diagnosis Onset Date Resolution Status Admit Date Vision abnormalities acute January 28, 2025 8:54am Ankle edema, bilateral chronic Ju ly 2024 8:54am Asthma chronic January 28 8:54am Hyperlipidemia chronic January 28, 2025 8:54am Hypertension chronic January 28, 2 025 8:54am [facility] Work Phone: 1(260) 946-115007-23-2025 Evaluation note* Diagnosis Onset Date Resolution Status Admit Date Vision abnormalities acute January 28, 2025 8:54am Ankle edema, bilateral chronic Ju ly 2024 8:54am Asthma chronic January 28 8:54am Hyperlipidemia chronic January 28, 2025 8:54am Hypertension chronic January 28, 2 025 8:54am Acute sinusitis acute March 19, 2025 1:06pm [facility] Work Phone: 1(125) 351-472303-26-2025 Evaluation note* Diagnosis Onset Date Resolution Status Admit Date Ankle edema, bilateral acute [facility] 2024 10:09am Vision abnormalities acute [facility] 2024 10:09am Hyperlipidemia chronic September 10:09am Hypertension chronic October 01, 2024 10:09am [facility] Work Phone: 1(299) 589-270312-09-2024 Evaluation note* Diagnosis Onset Date Resolution Status Admit Date Encounter for routine gynecological examination noneactive Decemb er 2023 8:11am Ankle edema, bilateral acute De cember 2023 7:25am Hyperlipidemia chronic June 082023 7:25am Hypertension chronic June 20t 2023 7:25am Ankle edema, bilateral acute [place] [facility] 2024 10:09am Vision abnormalities acute Wes 2024 10:09am Hyperlipidemia chronic September 10:09am Hypertension chronic October 01, 2024 10:09am [facility] Work Phone: 1(438) 962-741711-30-2023 NotePap Smear Specimen AdequacyNovember 2022 11:12amComment.Satisfactory for evaluation. Endocervical and/or squamous metaplasticcells (endocervical component)are present.[facility] A#[id number] Health System East CampusComment on above:Satisfactory for evaluation. Endocervical and/or squamous metaplasticcells (endocervical component)are present.09-23-2021 NoteHNO ID: [id number] Author: Florence Mayorga APRN.RADIOLOGY SERVICES MANAGER Service: ? Author Type: Nurse Practitioner Type: Progress Notes Filed: 09/23/2021 2:37 PM Note Text: Subjective The history is provided by the patient. No certified pharmacy tech was used. HPI Rupal Bell is a 46 year old female who presents today for CC of sinus pressure and congestion that are worsening over the past 24 hours, worse on left side. Symptoms started over a week ago. She has used flonase, benadryl, halls without relief. She has h/o of sinusitis in the past, htn. Normal kidney function per patient. BP 122/70 Pulse 96 Temp 37 ?C (98.6 ?F) Resp 16 Wt 87.5 kg (193 lb) LMP 01/19/2016 SpO2 99% BMI 31.69 kg/m? Social History Tobacco Use - Smoking status: Never Smoker - Smokeless tobacco: Never Used Substance Use Topics - Alcohol use: Yes Alcohol/week: 12.5 standard drinks Types: 5 Cans of Beer (12oz) per week Comment: Occasionally - Drug use: No PAST MEDICAL HISTORY Diagnosis Date - Allergic rhinitis, cause unspecified Allergic rhinitis - Unspecified asthma(493.90) Asthma Unspecified I have confirmed and edited as necessary, the [facility] Review of Systems Constitutional: Negative for chills, fever and malaise/fatigue. HENT: Positive for congestion, ear pain (pressure) and sinus pain. Negative for sore throat. Respiratory: Negative for cough, sputum production, shortness of breath and wheezing. Cardiovascular: Negative for chest pain. Gastrointestinal: Negative for abdominal pain, diarrhea, nausea and vomiting. Musculoskeletal: Negative for myalgias. Neurological: Positive for headaches (sinus). Objective Physical Exam Vitals and nursing note reviewed. HENT: Head: Normocephalic and atraumatic. Right Ear: Tympanic membrane, ear canal and external ear normal. Left Ear: Ear canal and external ear normal. A middle ear effusion is present. Tympanic membrane is bulging. Nose: Mucosal edema and rhinorrhea present. Right Sinus: Maxillary sinus tenderness present. No frontal sinus tenderness. Left Sinus: Maxillary sinus tenderness and frontal sinus tenderness present. Mouth/Throat: Pharynx: Uvula midline. No oropharyngeal exudate or posterior oropharyngeal erythema. Lymphadenopathy: Head: Right side of head: No submental, submandibular or tonsillar adenopathy. Left side of head: No submental, submandibular or tonsillar adenopathy. Cervical: No cervical adenopathy. Skin: General: Skin is warm and dry. Neurological: Mental Status: She is alert. Psychiatric: Mood and Affect: Affect normal. ASSESSMENT/PLAN: 1. Acute non-recurrent pansinusitis - ICD9: 461.8, ICD10: J01.40 - Will begin treatment with Augmentin 875 mg PO BID for 5 days - Supportive care with plenty of fluids, rest, and analgesia prn. - Follow up in one week if symptoms persist or worsen. - Continue flonase, mucinex prn Diagnosis and treatment plan were discussed and questions were answered to the patient's satisfaction. Pt acknowledged understanding of concepts and follow up plan. Specific signs and symptoms that would indicate the need for higher level of care were discussed in detail warranting prompt ER evaluation. Florence Mayorga APRN.[facility] note* Diagnosis Onset Date Resolution Status Health care maintenance acut e Hyperlipidemia chronic Hypertension chronic [facility] Work Phone: Evaluation note* Diagnosis Onset Date Resolution Status Health care maintenance acut e Hyperlipidemia chronic Hypertension chronic Encounter for routine gynecological examination noneactive [facility] Work Phone: Evaluation note* Diagnosis Onset Date Resolution Status Hyperlipidemia chronic Hypertension chronic Thyroid nodule chronic [facility] Work Phone: Evaluation note* Diagnosis Onset Date Resolution Status Flu vaccine need acute Hyperlipidemia chronic Hypertension chronic [facility] Work Phone: Evaluation note* Diagnosis Onset Date Resolution Status Flu vaccine need acute Hyperlipidemia chronic Hypertension chronic Encounter for routine gynecological examination noneactive [facility] Work Phone: Evaluation noteNo assessment information available [facility] Work Phone: Reason for referral (narrative)No reason for referral information [facility] Work Phone: Summary Purpose Family History No Family History Records Found Relationship Condition Age at Onset Recorded Date/T raymond father Asthma Unknown Hyperlipidemia Unknown mother Hypertension Unknown grandfather Myocardial infarction 55 son Asthma Unknown Relationship Condition Age at Onset Recorded Date/T raymond father Asthma Unknown Hyperlipidemia Unknown mother Hypertension Unknown Malignant neoplasm Unknown grandfather Myocardial infarction 55 son Asthma Unknown Relationship Condition Age at Onset Recorded Date/T raymond father Asthma Unknown Hyperlipidemia Unknown Parkinson's disease Unknown mother Hypertension Unknown Malignant neoplasm Unknown grandfather Myocardial infarction 55 son Asthma Unknown Advance Directives No Advanced Directives Records Found Advance Directive Response Recorded Date/ Time Living Will Yes June 29 1:03pm Power of Supervisor Electronic Testing Yes June 29, 2021 1:03pm Advance Directive Response Recorded Date/ Time Living Will Yes June 29 12:03pm Power of Supervisor Electronic Testing Yes June 29, 2021 12:03pm Advance Directive Response Recorded Date/ Time Living Will Yes June 29 1:03pm Do you have a Healthcare Power of Supervisor Electronic Testing? 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) Reason for Visit Health care maintena nce Hyperlipidemia Hypertension Encounter for routine gynecological examination Chief Complaint EORDER EORDER 6 M FU Reason for Visit Hyperlipidemia Hypertension Thyroid nodule Chief Complaint EORDER 6 M FU THYROID NODULE Reason for Visit Hyperlipidemia Hypertension Thyroid nodule Chief Complaint EORDER 6 M FU Reason for Visit Flu vaccine need Hyperlipidemia Hypertension Chief Complaint EORDER 6 M FU SCREENING Reason for Visit Flu vaccine need Hyperlipidemia Hypertension Chief Complaint EORDER 6 M FU 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 Reason for Visit Flu vaccine need Hyperlipidemia Hypertension Encounter for routine gynecological examination Chief Complaint EORDERS Chief Complaint Admit Date 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) June 16, 2024 8 :11am SWOLLEN ANKLES June 20, 2024 7:25am EORDER August 12, 2024 7 :38am 4 M FU October 01, 2024 10: 09am Reason for Visit Admit Date Encounter for routine gynecological exam ination June 16, 2024 8:11am Ankle edema, bilateral June 20 7:25am Hyperlipidemia June 20, 2024 7:25am Hypertension June 20, 2024 7:25am Ankle edema, bilateral October 01, 2024 10:09am Vision abnormalities October 01, 2024 10 :09am Hyperlipidemia October 01, 2024 10: 09am Hypertension October 01, 2024 10: 09am Chief Complaint Admit Date 4 M FU October 01, 2024 10: 09am 4 M FU January 28, 2025 8:54 am Reason for Visit Admit Date Ankle edema, bilateral October 01, 2024 10:09am Vision abnormalities October 01, 2024 10 :09am Hyperlipidemia October 01, 2024 10: 09am Hypertension October 01, 2024 10: 09am Chief Complaint Admit Date 4 M FU January 28, 2025 8:54 am Reason for Visit Admit Date Vision abnormalities January 28, 2025 8:5 4am Ankle edema, bilateral January 28, 2025 8 :54am Asthma January 28, 2025 8:54 am Hyperlipidemia January 28, 2025 8:54 am Hypertension January 28, 2025 8:54 am Chief Complaint Admit Date 4 M FU January 28, 2025 8:54 am CONCERN FOR SINUS INFECTION March 192024 1:06pm Reason for Visit Admit Date Vision abnormalities January 28, 2025 8:5 4am Ankle edema, bilateral January 28, 2025 8 :54am Asthma January 28, 2025 8:54 am Hyperlipidemia January 28, 2025 8:54 am Hypertension January 28, 2025 8:54 am Acute sinusitis March 19, 2025 1:06pm Additional Source Comments INFORMATION SOURCE (unrecogn ized section and content) DATE CREATED AUTHOR 10/04/2021 [facility] DATE CREATED AUTHOR AUTHOR'S ORGANIZ ATION 05/21/2025 [facility] Goals (unrecognized section and content) Goals may be documented in a n alternate sectionGoals may be documented in an alternate sectionGoals may be documented in an alternate sectionGoals may be documented in an alternate sectionGoals may be documented in an alternate sectionGoals may be documented in an alternate sectionGoals may be documented in an alternate sectionGoals may be documented in an alternate sectionGoals may be documented in an alternate sectionGoals may be documented in an alternate sectionGoals may be documented in an alternate sectionGoals may be documented in an alternate sectionGoals may be documented in an alternate section Care Teams (unrecognized sec tion and content) Team Status: Active Member Role Status Dates Dr. Ynes Murry MD Primary Care Provider Active Team Status: Inactive Member Role Status Dates Dr. Ynes Murry MD Primary Care Kaleb regan, Attending Provider, Referring Provider Active Team Status: Inactive Member Role Status Dates Dr. Ynes Murry MD Primary Care Provider Active Dr. Sudha Sutton MD Attending Provider, Referr ing Provider Active Team Status: Inactive Member Role Status Dates Dr. Ynes Murry MD Primary Care Provider, Refer ring Provider Active Dr. Sudha Sutton MD Attending Provider Active Team Status: Inactive Member Role Status Dates Dr. Ynes Murry MD Primary Care Provider Active Start: June 16, 2024 End: June 16, 2024 Dr. Ynes Murry MD Referring Provider Active Start: June 16, 2024 End: June 16, 2024 Dr. Sudha Sutton MD Attending Provider Active Start: June 16, 2024 End: June 16, 2024 Team Status: Inactive Member Role Status Dates Dr. Ynes Murry MD Primary Care Provider Active Start: June 20, 2024 End: June 20, 2024 Dr. Ynes Murry MD Referring Provider Active Start: June 20, 2024 End: June 20, 2024 Armani PASCUAL, PA Attending Provider Active St art: June 20, 2024 End: June 20, 2024 Team Status: Inactive Member Role Status Dates Dr. Ynes Murry MD Primary Care Provider Active Start: August 12, 2024 End: August 12, 2024 ANKUR Dukes Attending Provider Active St art: August 12, 2024 End: August 12, 2024 ANKUR Dukes Referring Provider Active St art: August 12, 2024 End: August 12, 2024 Team Status: Inactive Member Role Status Dates Dr. Ynes Murry MD Primary Care Provider Active Start: October 01, 2024 End: October 01, 2024 Dr. Ynes Murry MD Attending Provider Active Start: October 01, 2024 End: October 01, 2024 Dr. Ynes Murry MD Referring Provider Active Start: October 01, 2024 End: October 01, 2024 Team Status: Active Member Role Status Dates Dr. Ynes Murry MD Primary Care Provider Active Start: October 02, 2024 Dr. Ynes Murry MD Attending Provider Active Start: October 02, 2024 Dr. Ynes Murry MD Referring Provider Active Start: October 02, 2024 Team Status: Inactive Member Role Status Dates Dr. Ynes Murry MD Primary Care Provider Active Start: October 02, 2024 End: October 02, 2024 Dr. Ynes Murry MD Attending Provider Active Start: October 02, 2024 End: October 02, 2024 Dr. Ynes Murry MD Referring Provider Active Start: October 02, 2024 End: October 02, 2024 Team Status: Active Member Role/Relationship Status Dates Dr. Ynes Murry MD Primary Care Provider Active Team Status: Inactive Member Role/Relationship Status Dates Dr. Ynes Murry MD Primary Care Provider Active Start: October 01, 2024 End: October 01, 2024 Dr. Ynes Murry MD Attending Provider Active Start: October 01, 2024 End: October 01, 2024 Dr. Ynes Murry MD Referring Provider Active Start: October 01, 2024 End: October 01, 2024 Team Status: Inactive Member Role/Relationship Status Dates Dr. Ynes Murry MD Primary Care Provider Active Start: October 01, 2024 End: October 01, 2024 Dr. Ynes Murry MD Attending Provider Active Start: October 01, 2024 End: October 01, 2024 Dr. Ynes Murry MD Referring Provider Active Start: October 01, 2024 End: October 01, 2024 Team Status: Inactive Member Role/Relationship Status Dates Dr. Ynes Murry MD Primary Care Provider Active Start: October 02, 2024 End: October 02, 2024 Dr. Ynes Murry MD Attending Provider Active Start: October 02, 2024 End: October 02, 2024 Dr. Ynes Murry MD Referring Provider Active Start: October 02, 2024 End: October 02, 2024 Team Status: Inactive Member Role/Relationship Status Dates Dr. Ynes Murry MD Primary Care Provider Active Start: January 28, 2025 End: January 28, 2025 Dr. Ynes Murry MD Attending Provider Active Start: January 28, 2025 End: January 28, 2025 Dr. Ynes Murry MD Referring Provider Active Start: January 28, 2025 End: January 28, 2025 Team Status: Active Member Role/Relationship Status Dates Dr. Ynes Murry MD Primary Care Provider Active Start: January 28, 2025 Dr. Ynes Murry MD Attending Provider Active Start: January 28, 2025 Dr. Ynes Murry MD Referring Provider Active Start: January 28, 2025 Team Status: Inactive Member Role/Relationship Status Dates Dr. Ynes Murry MD Primary Care Provider Active Start: January 28, 2025 End: January 28, 2025 Dr. Ynes Murry MD Attending Provider Active Start: January 28, 2025 End: January 28, 2025 Dr. Ynes Murry MD Referring Provider Active Start: January 28, 2025 End: January 28, 2025 Team Status: Inactive Member Role/Relationship Status Dates Dr. Ynes Murry MD Primary Care Provider Active Start: January 28, 2025 End: January 28, 2025 Dr. Ynes Murry MD Attending Provider Active Start: January 28, 2025 End: January 28, 2025 Dr. Ynes Murry MD Referring Provider Active Start: January 28, 2025 End: January 28, 2025 Team Status: Inactive Member Role/Relationship Status Dates Dr. Ynes Murry MD Primary Care Provider Active Start: March 19, 2025 End: March 19, 2025 Dr. Ynes Murry MD Referring Provider Active Start: March 19, 2025 End: March 19, 2025 ANKUR Orozco Attending Provider Active Sta rt: March 19, 2025 End: March 19, 2025 FOR RECORDS PERTAINING TO PATIENTS WHO ARE OR HAVE BEEN ENROLLED IN A CHEMICAL DEPENDENCY/SUBSTANCEABUSE PROGRAM, SOME INFORMATION MAY BE OMITTED. This clinical summary was aggregated from multiple sources. Caution should be exercised in using it in the provision of clinical care. This summary normalizes information from multiple sources, and as a consequence, information in this document may materially change the coding, format and clinical context of patient data. In addition, data may be omitted in some cases. CLINICAL DECISIONS SHOULD BE BASED ON THE PRIMARY CLINICAL RECORDS. [facility] [employer] provides no warranty or guarantee of the accuracy or completeness of information in this document.
== END | disposition home or self-care (01) ==
PROVIDERS: PCP Internal Medicine; Referring Provider Obstetrics & Gynecology; Visit Provider Obstetrics & Gynecology
DX: Z12.31 Encounter for screening mammogram for malignant neoplasm of breast (principal)
CPT/HCPCS: 77063; 77067